=== PATIENT | female | born 1965 | race Caucasian/White ===

== ENCOUNTER 2020-12-18 15:02 | Outpatient (REF) | payer OTHER, SELFPAY ==
--- NOTE | ~2020-12-18 | MM_ITS ---
EXAMINATION: MM SCREENING DIGITAL BREAST TOMOSYNTHESIS, BILATERAL CLINICAL INFORMATION: Screening. Asymptomatic. The lifetime risk of breast cancer based on the Tyrer-Cuzick Model is 19%. COMPARISON: Mammography: 11/07/2019, 09/10/2018, 08/21/2016 TECHNIQUE: Digital breast tomosynthesis is performed in both the craniocaudal and mediolateral oblique views along with computer-aided detection (CAD). Synthesized 2D images are generated from the tomosynthesis. FINDINGS: The breasts are heterogeneously dense, which may obscure small masses (ACR BI-RADS breast composition Category c). Parenchymal pattern is similar to prior studies. There is no developing density or interval mass or architectural abnormality. Again, there is biopsy clip marker mid upper left breast and posterior upper right breast. There are diffuse bilateral punctate calcifications, more numerous on right similar to previous study. The axilla and skin contours are unremarkable. No significant changes. MM/MM tomosynthesis screening BI IMPRESSION: No significant changes from prior study. No mammographic evidence of malignancy. ASSESSMENT: BI-RADS 2: Benign RECOMMENDATION: Routine annual mammography screening. This patient's information was entered into a reminder system with a target due date for their next mammogram.
== END 2020-12-18 15:03 | disposition home or self-care (01) ==
LOC: HO.MAMMO 15:02
PROVIDERS: PCP Family Medicine; Visit Provider Family Medicine
DX: Z12.31 Encounter for screening mammogram for malignant neoplasm of breast (principal)
CPT/HCPCS: 77063; 77067

== ENCOUNTER 2021-12-19 15:54 | Outpatient (REF) | payer BC, SELFPAY ==
--- NOTE | ~2021-12-19 | MM_ITS ---
EXAMINATION: MM SCREENING DIGITAL BREAST TOMOSYNTHESIS, BILATERAL CLINICAL INFORMATION: Screening. Asymptomatic. Family history breast cancer, mother. The lifetime risk of breast cancer based on the Tyrer-Cuzick Model is 17%. COMPARISON: Mammography: 12/18/2020, 11/07/2019, 09/10/2018 TECHNIQUE: Digital breast tomosynthesis is performed in both the craniocaudal and mediolateral oblique views along with computer-aided detection (CAD). Synthesized 2D images are generated from the tomosynthesis. FINDINGS: The breasts are heterogeneously dense, which may obscure small masses (ACR BI-RADS breast composition Category c). Parenchymal pattern is similar to prior studies and there is no architectural abnormality, developing density, or interval mass. Biopsy clip marker again noted mid 1:00 left breast, and 2 biopsy clip markers right breast posterior central and posterior upper breast. There are diffuse bilateral similar appearing small round calcifications in each breast. The axilla and skin contours are unremarkable. No significant changes. MM/MM tomosynthesis screening BI IMPRESSION: No mammographic evidence of malignancy. ASSESSMENT: BI-RADS 2: Benign RECOMMENDATION: Routine annual mammography screening. This patient's information was entered into a reminder system with a target due date for their next mammogram.
== END 2021-12-19 15:55 | disposition home or self-care (01) ==
LOC: HO.MAMMO 15:54
PROVIDERS: PCP Family Medicine; Visit Provider Family Medicine
DX: Z12.31 Encounter for screening mammogram for malignant neoplasm of breast (principal)
CPT/HCPCS: 77063; 77067

== ENCOUNTER 2023-01-23 07:33 | Outpatient (REF) | payer BC, SELFPAY ==
--- NOTE | ~2023-01-23 | MM_ITS ---
EXAMINATION: MM SCREENING DIGITAL BREAST TOMOSYNTHESIS, BILATERAL CLINICAL INFORMATION: Screening. Asymptomatic. COMPARISON: Mammography: This study is compared with prior exams dating back to 2018. TECHNIQUE: Digital breast tomosynthesis is performed in both the craniocaudal and mediolateral oblique views along with computer-aided detection (CAD). Synthesized 2D images are generated from the tomosynthesis. FINDINGS: The breasts are heterogeneously dense, which may obscure small masses (ACR BI-RADS breast composition Category c). There are no significant masses, abnormal calcifications, or other abnormalities. There are tissue markers in the superior aspects of each breast from prior benign percutaneous biopsies. There are scattered, benign, unchanged calcifications of each breast. MM/MM tomosynthesis screening BI IMPRESSION: No mammographic evidence of malignancy. ASSESSMENT: BI-RADS BI-RADS 2 - Benign Findings RECOMMENDATION: Routine annual mammography screening. 1 year F/U This examination should not preclude the clinical evaluation of a suspicious palpable abnormality. This patient's information was entered into a reminder system with a target due date for their next mammogram.
== END 2023-01-23 07:34 | disposition home or self-care (01) ==
LOC: HO.MAMMO 07:33
PROVIDERS: PCP Family Medicine; Visit Provider Family Medicine
DX: Z12.31 Encounter for screening mammogram for malignant neoplasm of breast (principal)
CPT/HCPCS: 77063; 77067

== ENCOUNTER → 2023-01-23 07:45 | Outpatient (BNV) | payer BC, SELFPAY | PROVIDERS: PCP Family Medicine; Visit Provider Radiology Diagnostic Radiology | DX: Z12.31 Encounter for screening mammogram for malignant neoplasm of breast (principal) | CPT/HCPCS: 77063; 77067 ==

== ENCOUNTER 2024-01-19 13:07 | Outpatient (AMB) | payer BC, SELFPAY ==
--- NOTE | 2024-01-19 13:35 | MHC.PC.OV ---
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: No Patient : No Allergies No Known Allergies Allergy (Mild, Verified 01/19/24 13:36) NONE Medication List - Last Reconciled 01/19/24 by MADONNA Robles- aspirin (Adult Aspirin Regimen) 81 mg PO DAILY atenolol 50 mg PO DAILY betamethasone valerate 0.12% 1 appl topical BID levothyroxine 150 mcg PO DAILY multivitamin 1 tab PO DAILY rosuvastatin 20 mg PO BEDTIME Tobacco use date assessed: 01/19/24 Dental Screening Dental Screen Date: 01/19/24 Did you have a dental visit in the last 12 months?: Yes Did you have a dental problem in the last 6 months where you did not have access to dental care?: No Was dental information given to patient?: Patient has dentist HPI HPI Comments History of Present Illness Details 58 y/o f with hypothyroidism, hyperlipidemia, hypertension, scoliosis, mild mitral regurgitation, large patent PFO, atrial septal aneurysm, complex renal cyst R, vitamin-D deficiency, 5 mm hyperechoic avascular lesion adjacent to the gallbladder fossa noted on ultrasound of the abdomen 09/18/2023 (likely hemangioma), alcohol use disorder, menopause, scalp psoriasis, uterine fibroids, right ovarian cysts Status post tubal ligation 2001 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 LUCIE Stebbins of Care: Renal cleared Cardiology cleared Here today to [facility] care. Previous PCP records reviewed. She reports tolerance and compliance with her medications. She does not need refills. She denies any side effects related to the statin. She denies any cardiac complaints. She remains on aspirin for the patent PFO. In regards to follow up with specialist, she was cleared from renal follow up. She was seeing them for a right renal cyst. Repeat ultrasound showed stable benign cyst not requiring any follow up. She was also active with Cardiology in the past for patent PFO. She is cleared for routine follow up with them. She is maintained on aspirin daily. She denies any cardiac complaints. [facility] In regards to mammogram, she has a family history of breast cancer in her mother, she was fiber dense breasts, in the past she has had abnormal mammograms requiring MRI follow up. She is due for a mammogram this month. She has not had an MRI in several years. She would like this screening if at all possible. I will have the MRI from [facility] pulled to review. 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 She and her has been drinking several bottles of wine a few times per week. She has self reduced substantially. Her is also working on recovery in his supportive. She is now only drinking on special occasions. Feels she is able to limit her drinking. She has never been hospitalized or suffered withdrawals. She reports that since she stopped drinking she is sleeping much better and overall feels so much better. Does admit that her LFTs were bumped in the setting of alcohol use disorder and a statin. Labs 09/2023 show normal electrolytes, BUN 22, creatinine 0.7, EGFR greater than 59, hemoglobin A1c 5 point%, TSH 1.27 glucose 105, AST 38, ALT 55 Exam Awake alert oriented, no acute distress Scleras nonicter bilat MMM thyroid nontender 2/6 systolic murmur, regular rhythm Lung sounds clear to auscultation bilat Abdomen soft, no hepatomegaly, no tenderness No edema bilateral lower extremities Mood and affect appropriate Plan Continue all medications as currently prescribed. Return to the office in June for complete physical exam, with fasting labs to be done 1 week before. Return to the office sooner as needed. This note is constructed using voice recognition software. While every effort has been made to ensure accuracy in professor of business administration, still errors may have been included Sometimes, these errors may affect the content or meaning of the given sentence . Total time spent caring for the patient today was 45 minutes. This includes time spent before the visit reviewing the chart, time spent during the visit, and time spent after the visit on documentation PFSH Medical History (Updated 01/19/24 @ 15:03 by Le Newsome, [facility]-) Scoliosis High cholesterol Hypertension Surgical History (Updated 03/26/20 @ 14:37 by Liz Koroma, RMA, [facility]) History of colonoscopy History of wisdom tooth extraction History of tubal ligation Family History (Updated 01/19/24 @ 13:40 by Prasanth Byers MA) Father High cholesterol HTN (hypertension) CVD (cardiovascular disease) Mother Breast cancer Colon cancer Hyperlipidemia Paternal Grandfather Colon cancer Paternal Grandmother No problems noted. Social History (Updated 01/19/24 @ 13:41 by Prasanth Byers MA) Household Members: Spouse Housing: House Are you a primary reproductive healthcare assistant to a significant other at home: No Do you presently have visiting nurse or other home services: No 75 years or older and lives alone: No Alcohol intake: current Alcohol intake frequency: holidays/special occasions only Alcohol type: wine Patient Tobacco Use Status: Never used Tobacco e-Cigarette/Vaping Use: Never Used service: No Current occupational status: employed Current occupation: [employer] Cognitive needs: No Hearing needs: No Vision needs: Yes (wear glasses) Questionnaire PHQ-9 Over the last 2 weeks, how often have you been bothered by any of the following problems? 1. Little interest or pleasure in doing things: not at all 2. Feeling down, depressed, or hopeless: not at all 3. Trouble falling or staying asleep, or sleeping too much: not at all 4. Feeling tired or having little energy: not at all 5. Poor appetite or overeating: not at all 6. Feeling bad about yourself - or that you are a failure or have let yourself or your family down: not at all 7. Trouble concentrating on things, such as reading the newspaper or watching television: not at all 8. Moving or speaking so slowly that other people could have noticed. Or the opposite - being so fidgety or restless that you have been moving around a lot more than usual: not at all 9. Thoughts that you would be better off or of hurting yourself in some way: not at all Total score: 0 Depression Screening Interpretation: Negative Depression Screening Done: Yes 83801 - PHQ-9 Billing: Yes Source: Developed by Drs. Hoang Brunson, Nita De La Cruz, Cecil Yuan and colleagues, with an educational elaine from [employer]. Thrive Questionnaire Date Thrive assessed: 01/19/24 I am a: Patient What is your living situation today?: I have a steady place to live Within the past 12 months, did the food you bought not last and you didn't have the money to get more?: Never true Do you have trouble paying for medicines?: No Do you have trouble getting transportation to medical appointments?: No Do you have trouble paying your heating and electricity bill?: No Do you have trouble taking care of your child, family member or friend?: No Do you have trouble with day-to-day activities such as bathing, preparing meals, shopping, managing finances, etc.?: No Are you currently unemployed and looking for a job?: No Are you interested in more education?: No Please select the resources that you would like help with: None THRIVE Score: 0 AUDIT C Alcohol Use Questionnaire (AUDIT-C) 1. How often do you have a drink containing alcohol?: 2-4 times a month 2. How many drinks containing alcohol do you have on a typical day when you are drinking?: 3 or 4 3. How often do you have six or more drinks on one occasion?: Less than monthly Total Score: 4 Score Reviewed/Action Taken: Yes ELISSA-7 AMB Questionnaire ELISSA-7 Date ELISSA - 7 assessed: 01/19/24 Feeling nervous, anxious, or on edge: 0 = Not at all Not being able to stop or control worryin = Not at all Worrying too much about different things: 0 = Not at all Trouble relaxin = Not at all Being so restless that it is hard to sit still: 0 = Not at all Becoming easily annoyed or irritable: 0 = Not at all Feeling afraid as if something awful might happen: 0 = Not at all Total ELISSA-7 score (0-4 normal; 5-9 mild; 10-14 moderate; 15-21 severe): 0 Source: Developed by Nita Hitchcock.W. Jono, Cecil Yuan and colleagues, with an educational elaine from [employer]. ELISSA-7 Assessment Billing ELISSA-7 Assessment Tool: ELISSA-7 Assessment 60419 Physical exam (Primary Care) Vital Signs: Last Vital Signs Pulse 53 01/19/24 13:41 Resp 14 01/19/24 13:41 BP 120/70 01/19/24 13:41 Pulse Ox 94 01/19/24 13:41 Oxygen Delivery Method Room Air 01/19/24 13:41 BMI result Body Mass Index 27.8 Tobacco/Smoking Status: Tobacco use Status Tobacco use date assessed 01/19/24 01/19/24 13:44 Patient Tobacco Use Status Never used Tobacco 01/19/24 13:44 e-Cigarette/Vaping Use Never Used 01/19/24 13:44 PHQ-9: PHQ-9 Score PHQ-9: Total score 0 01/19/24 13:51 Depression Screening Interpretation: Negative Thrive Assessment: Date of Thrive Assessment Date Thrive assessed 01/19/24 01/19/24 13:44 Assessment and Plan Assessment & Plan (1) Hypothyroid: Code(s): E03.9 - Hypothyroidism, unspecified Qualifiers: Hypothyroidism type: acquired Qualified Code(s): E03.9 - Hypothyroidism, unspecified (2) Hyperlipidemia: Code(s): E78.5 - Hyperlipidemia, unspecified Qualifiers: Hyperlipidemia type: mixed hyperlipidemia Qualified Code(s): E78.2 - Mixed hyperlipidemia (3) PFO with atrial septal aneurysm: Code(s): Q21.12 - Patent foramen ovale; I25.3 - Aneurysm of heart (4) Complex renal cyst: Comment: on the R with MRI and US imaging, last done Summer 2023, cleared from future renal f/u, cyst is benign Code(s): N28.1 - Cyst of kidney, acquired (5) Vitamin D deficiency: Code(s): E55.9 - Vitamin D deficiency, unspecified (6) Liver lesion: Comment: 5 mm hyperechoic avascular lesion adjacent to the gallbladder fossa noted on ultrasound of the abdomen 09/18/2023 (likely hemangioma), Code(s): K76.9 - Liver disease, unspecified (7) Alcohol use disorder, mild, in early remission: Code(s): F10.11 - Alcohol abuse, in remission (8) Scalp psoriasis: Code(s): L40.9 - Psoriasis, unspecified (9) Hypertension: Code(s): I10 - Essential (primary) hypertension Qualifiers: Hypertension type: primary hypertension Qualified Code(s): I10 - Essential (primary) hypertension Orders: Orders Comprehensive [place]. Panel Fast 05/11/24 E03.9 - Hypothyroidism, unspecified, E78.5 - Hyperlipidemia, unspecified Hemoglobin A1c 05/11/24 E03. - Hypothyroidism, unspecified, E78.5 - Hyperlipidemia, unspecified Lipid Panel 05/11/24 E03.9 - Hypothyroidism, unspecified, E78.5 - Hyperlipidemia, unspecified IRON PROFILE 05/11/24 E0. - Hypothyroidism, unspecified, E78.5 - Hyperlipidemia, unspecified Complete Blood Count no Diff 05/11/24 E0. - Hypothyroidism, unspecified, E78.5 - Hyperlipidemia, unspecified Microalbumin, Random (w Creat) 05/11/24 E03. - Hypothyroidism, unspecified, E78.5 - Hyperlipidemia, unspecified TSH reflex Free T4 05/11/24 E03. - Hypothyroidism, unspecified, E78.5 - Hyperlipidemia, unspecified Vitamin B12 and Folate 05/11/24 E03. - Hypothyroidism, unspecified, E78.5 - Hyperlipidemia, unspecified Vitamin D 25-OH Total 05/11/24 E03. - Hypothyroidism, unspecified, E78.5 - Hyperlipidemia, unspecified Coding Level of Care Code New Pt Level 4 (19918) Complex EM visit Add On G2211 Diagnoses Acquired hypothyroidism E03.9 Hypothyroidism type: acquired Mixed hyperlipidemia E78.2 Hyperlipidemia type: mixed hyperlipidemia PFO with atrial septal aneurysm Q21.12; I25.3 Complex renal cyst N28.1 Vitamin D deficiency E55.9 Liver lesion K76.9 Alcohol use disorder, mild, in early remission F10.11 Scalp psoriasis L40.9 Primary hypertension I10 Hypertension type: primary hypertension Additional Codes ELISSA-7 Assessment Billing - ELISSA-7 Assessment Tool: ELISSA-7 Assessment [id number] ([id number])
[2024-01-19 13:41] VITALS: BP 120/70; PULSE 53; RESP 14; O2SAT 94; BMI 27.8
== END 2024-01-19 14:20 | disposition home or self-care (01) ==
PROVIDERS: PCP Family Medicine; Visit Provider Nurse Practitioner Family
DX: E03.9 Hypothyroidism, unspecified (principal); E78.2 Mixed hyperlipidemia; Q21.12 Patent foramen ovale; I25.3 Aneurysm of heart; N28.1 Cyst of kidney, acquired; E55.9 Vitamin D deficiency, unspecified; K76.9 Liver disease, unspecified; F10.11 Alcohol abuse, in remission; L40.9 Psoriasis, unspecified; I10 Essential (primary) hypertension
CPT/HCPCS: 99204

== ENCOUNTER 2024-02-01 07:55 | Outpatient (REF) | payer BC, SELFPAY ==
--- NOTE | ~2024-02-01 | MM_ITS ---
EXAMINATION: MM SCREENING DIGITAL BREAST TOMOSYNTHESIS, BILATERAL CLINICAL INFORMATION: Screening. Asymptomatic. COMPARISON: Mammography: Comparison is made with available priors TECHNIQUE: Digital breast mammography with tomosynthesis is performed in both the craniocaudal and mediolateral oblique views along with computer-aided detection (CAD). FINDINGS: The breasts are heterogeneously dense, which may obscure small masses (ACR BI-RADS breast composition Category c). Marker clips from previous needle core biopsies. There are no significant masses, abnormal calcifications, or other abnormalities. MM/MM tomosynthesis screening BI IMPRESSION: No mammographic evidence of malignancy. ASSESSMENT: BI-RADS BI-RADS 2 - Benign Findings RECOMMENDATION: Routine annual mammography screening. 1 year F/U This examination should not preclude the clinical evaluation of a suspicious palpable abnormality. This patient's information was entered into a reminder system with a target due date for their next mammogram. Electronically signed by: Soila Montoya DO 02/01/2024 05:52 PM EDT
== END 2024-02-01 07:56 | disposition home or self-care (01) ==
LOC: HO.MAMMO 07:55
PROVIDERS: PCP Nurse Practitioner Family; Visit Provider Nurse Practitioner Family
DX: Z12.31 Encounter for screening mammogram for malignant neoplasm of breast (principal)
CPT/HCPCS: 77063; 77067

== ENCOUNTER → 2024-02-01 08:00 | Outpatient (BNV) | payer BC, SELFPAY | PROVIDERS: PCP Nurse Practitioner Family; Visit Provider Internal Medicine | DX: Z12.31 Encounter for screening mammogram for malignant neoplasm of breast (principal) | CPT/HCPCS: 77063; 77067 ==

== ENCOUNTER → 2024-04-25 08:38 | Outpatient (BNV) | payer BC, SELFPAY | PROVIDERS: PCP Nurse Practitioner Family; Visit Provider Internal Medicine | DX: R92.323 Mammographic fibroglandular density, bilateral breasts (principal); Z80.3 Family history of malignant neoplasm of breast | CPT/HCPCS: 77049 ==

== ENCOUNTER 2024-04-25 08:39 | Outpatient (REF) | payer BC, SELFPAY ==
[2024-04-25] MEDS: gadobutroL 7.5 ML VIAL IVPUSH (09:55)
== END 2024-04-25 08:40 | disposition home or self-care (01) ==
LOC: HO.MRI 08:39
PROVIDERS: PCP Nurse Practitioner Family; Visit Provider Nurse Practitioner Family
DX: Z12.39 Encounter for other screening for malignant neoplasm of breast (principal); R92.30 Dense breasts, unspecified
CPT/HCPCS: 77049; A9585

== ENCOUNTER 2024-07-12 07:30 | Outpatient (REF) | payer BC, SELFPAY ==
[2024-07-12 08:26] LABS: Hemoglobin 13.8 g/dl (12.0-16.0); Mean Corpuscular HGB Conc 32.9 g/dl (31.0-35.0); Mean Corpuscular Hemoglobin 31.2 pg (27.0-33.0); Mean Corpuscular Volume 94.8 fL (80.0-98.0); Mean Platelet Volume 9.5 fL (9.4-12.3); Platelet Count 231 X10*3/uL (160-400); Red Blood Count 4.43 X10*6/uL (4.20-5.50); Red Cell Distribution Width 13.3 % (11.0-16.0); White Blood Count 6.6 X10*3/uL (4.8-10.8)
[2024-07-12 08:33] LABS: Estimated Average Glucose 108 mg/dL; Hemoglobin A1C 125.9231 umol/L; Hemoglobin A1c % 5.4 % (<6.0); Total Hemoglobin (HGBA1C) 3493.7263 umol/L
[2024-07-12 09:03] LABS: Alanine Aminotransferase 65 U/L (0-31); Albumin Level 4.5 g/dL (3.5-5.0); Alkaline Phosphatase 102 U/L (39-117); Anion Gap 13 (12-20); Aspartate Amino Transferase 34 U/L (5-31); Blood Urea Nitrogen 15 mg/dL (9-16); Calcium 9.8 mg/dL (8.4-10.2); Carbon Dioxide 25 mmol/L (22-29); Chloride 107 mmol/L (96-108); Cholesterol 248 mg/dL (<200); Estimated Glomerular Filt Rate > 60; Glucose Fasting 102 mg/dL (60-99); HDL Cholesterol 67 mg/dL (>40); Iron 104 mcg/dL (30-160); LDL Cholesterol Calculated 143 mg/dL (<100); Percent Iron Saturation 39 % (15-50); Potassium 4.1 mmol/L (3.3-5.1); Sodium 141 mmol/L (135-145); Total Iron Binding Capacity 269 mcg/dL (228-428); Total Protein 7.7 g/dL (6.5-8.0); Triglycerides 192 mg/dL (<150); Unsaturated Iron Binding 165 ug/dL
[2024-07-12 09:20] LABS: TSH reflex Free T4 2.74 uIU/mL (0.32-4.0)
[2024-07-12 09:29] LABS: Folate 15.1 ng/mL (> or = 4.0); Vitamin B12 687 pg/mL (200-900)
[2024-07-12 09:42] LABS: Creatinine Urine 114.33 mg/dL; Microalbum/Creatinine Ratio Ur 17.4 ug/mg cr (<30)
== END 2024-07-12 07:31 | disposition home or self-care (01) ==
LOC: HO.LAB 07:30
PROVIDERS: PCP Nurse Practitioner Family; Visit Provider Nurse Practitioner Family
DX: E03.9 Hypothyroidism, unspecified (principal); E78.5 Hyperlipidemia, unspecified; Z13.228 Encounter for screening for other metabolic disorders; Z13.1 Encounter for screening for diabetes mellitus; Z13.0 Encounter for screening for diseases of the blood and blood-forming organs and certain disorders involving the immune mechanism
CPT/HCPCS: 36415; 80053; 80061; 82043; 82306; 82570; 82607; 82746; 83036; 83540; 84443; 85027

== ENCOUNTER 2024-07-15 14:20 | Outpatient (AMB) | payer BC, SELFPAY ==
--- NOTE | 2024-07-15 14:21 | A.OFFPC_ITS ---
Vital Signs 07/15/24 14:24 Height 5 ft 1 in Weight 154 lb 4 oz BMI 29.1 BP 118/67 Blood Pressure Location Rt brachial Position Sitting Respiration 12 Pulse 61 Pulse Source Pulse Oximeter Temp 97.2 F Temp Source Oral Pulse Oximetry (%) 96 Oxygen Delivery Method Room Air Intake Visit Reasons: PE Intake Note: annual physical [employer] Manager Required: No Allergies No Known Allergies Allergy (Mild, Verified 07/15/24 14:47) NONE Medication List - Last Reconciled 07/15/24 by MADONNA Robles- aspirin (Adult Aspirin Regimen) 81 mg PO DAILY atenolol 50 mg PO DAILY betamethasone valerate 0.12% 1 appl topical BID levothyroxine 150 mcg PO DAILY multivitamin 1 tab PO DAILY rosuvastatin 20 mg PO BEDTIME Tobacco use date assessed: 07/15/24 Dental Screening Dental Screen Date: 07/15/24 Did you have a dental visit in the last 12 months?: Yes Did you have a dental problem in the last 6 months where you did not have access to dental care?: No Was dental information given to patient?: Patient has dentist HPI HPI Comments History of Present Illness Details 59 y/o f with hypothyroidism, hyperlipid emia, hypertension, scoliosis, mild mitral regurgitation, large patent PFO, atrial septal aneurysm, complex renal cyst R, vitamin-D deficiency, 5 mm hyperechoic avascular lesion adjacent to the gallbladder fossa noted on ultrasound of the abdomen 09/18/2023 (likely hemangioma), alcohol use disorder, menopause, scalp psoriasis, uterine fibroids, right ovarian cysts Status post tubal ligation 2001 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 MRI ordered 04/25/24 Breast MRI normal, Recommend yearly MRI screening surveillance. Recommend yearly screening mammogram. [place] of Care: Renal Cardiology Optho due, last one several years ago. Wears reading glasses. 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 - She has an ongoing medical history of hypothyroidism, managed with levoth yroxine hyperlipidemia treated with rosuvastatin. essential hypertension for which she is on atenolol and takes a daily low dose aspirin due to the presence of a patent foramen ovale; she is not under active follow-up with cardiology. - Reports challenges with controlling al cohol consumption, describing episodic excessive intake, especially relating to social and stress contexts. - Evaluates her current lifestyle impact on her lipid profile and her goal to reduce alcohol consumption. Social History - and reports living arrangement s include spouse and a [id number] with dementia, leading to family dynamic challenges. 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 - Reports alcohol intake with episodes l eading to potential health issues, acknowledges historical patterns motivated by stressors. - Exercises intermittently with history of active lifestyle, current decline attributed to lifestyle changes; expresses intentions of lifestyle adjustments and concerns about dietary management. - Measures taken toward smoking cessatio n and stress management seeking therapeutic intervention. Review of Systems - Cardiovascular: Denies chest pain - Pulmonary: Reports shortness of breath primarily upon exertion, worse than what is expected, but w/o chest pain. - Gastrointestinal: Reports manageable i rregular digestive symptoms post fish oil; some abd bloat more chronic - Musculoskeletal: Denies specific joint pain; routine activity prompts exertion concerns - Dermatologic: No recent skin changes b ut potential growth concerns noted on back - Neurologic: Denies dizziness at rest o r post exertional, reports no significant cognitive changes - Psychiatric: Reports continuous effort to reduce stress and manage substance concerns, improving emotional resilience Physical Exam General: Well developed, well nourished, in no acute distress. Appears stated age. Head: Normocephalic, atraumatic. Eyes: Pupils are equal, round and reactive to light and accommodation. Conjunctivae are clear. Vision grossly normal. Ears: TM intact and clear on L, unable to see TM on R d/t cerumen Pt states she can tx @ home Nose: Patent, without discharge. Neck: Supple, no adenopathy or thyromegaly. Breast: Edu on SBE. Mammogram and MRI are up to date Lungs: Clear to auscultation bilaterally. No rales, rhonchi or wheeze noted. Good air flow in all hamm. Heart: Regular rate and rhythm. 2/6 systolic murmur,no click, rubs or gallops are noted. . Abdomen: Bowel sounds present in all quadrants. The abdomen is soft, nontender, with no masses or organomegaly noted. No hernias are noted. : Deferred. Reviewed recommendations for routine MERIT SYSTEM DIRECTOR. Pulses: Peripheral pulses are equal and palpable bilaterally. Extremities: No clubbing, cyanosis nor edema is noted. Neurologic: Gait and station normal. Cranial Nerves 2-12 intact. Motor strength grossly symmetrical and intact. No sensory loss. Balance normal. Skin: No rashes, ulcers, or lesions noted. Turgor is good. Skin color is good. Hair and nails are without abnormalities. scattered moles on trunk and ext Psych: Normal eye contact, affect and mood appropriate, and normal interactions. Patient is alert and appropriate to context. Results Labs 07/12/24 normal CBC, normal electrolytes normal renal function fasting glucose 102 A1c 5.4% normal iron profile elevated LFTs though stable AST 34 ALT 65 elevated but improved total cholesterol 248, LDL 143 HDL 67 triglycerides 192 normal B12 vitamin-D folate TSH and urine microalbumin - Previous Imaging: - September 2023 Ultrasoun d: Presence of gallbladder hemangioma, no significant progress - Previous Procedures: - October 2023 CT Sc an: No significant abdominal abnormalities reported Discussion Notes We discussed the patient's concern with alcohol use disorder and concurrent health management. I proposed a referral to an addiction medicine specialist at the [facility] for targeted counseling/treatment. We considered pharmacological management options within the patient's cardiovascular health measures, reinforced by current cholesterol data. Furthermore, an updated stress test was deemed appropriate given exertional breathlessness, prioritizing cardiovascular exclusion before lung assessment. Another aspect of the visit included health maintenance thoroughness, covering flu immunization plans and aligning draft dates with ongoing mammography and osteoporotic screenings. Our discussion also canvassed anticipatory guidance on lifestyle choices and their correlation with health measures, specifically regarding alcohol influence on glucose and lipid parameters. Assessment and Plan 1. Hypothyroidism: Continue levothyroxin e. Current management effective with thorough follow-up. 2. Hyperlipidemia: Continue rosuvastatin . Reassess cholesterol levels; focus on lifestyle improvements. 3. Hypertension: Maintain atenolol thera py. Monitor blood pressure routine. 4. Patent Foramen Ovale: Advise aspirin regimen continuation. Cardiovascular signs to direct future interventions. 5. Alcohol Use Disorder: Initialize refe rral to addiction services. Explore moderation and lifestyle balance strategies. 6. Exertional Dyspnea: Arrange nuclear s tress test to evaluate symptomatic basis. Patient Instructions - Continue levothyroxine and rosuvastati n as prescribed. - Schedule and prepare for the nuclear s tress test at your earliest convenience after scheduling. - Expect a referral call to set appointm ents with addiction medicine services. Consider a walk-in should timing be of preference. - Maintain current hypertension regimen with atenolol and baby aspirin notwithstanding any alterations. - Be observant of any alternative sympto ms of concern, specifically escalating breathlessness, and reach out promptly. - Increase physical activities gradually accordingly and heighten focus on dietary?even dietary goals? matching cholesterol regulation objectives. - Plan and update scheduling for mammogr am and consider the bone density study as discussed. - RTO 6 mo routine fu, labs 1 week befor e sooner as needed Consent Patient was informed and verbally consented to the use of an ambient scribe for clinic note documentation during this visit. [facility] Medical History (Updated 07/15/24 @ 15:42 by Le Newsome, [facility]) High cholesterol Hypertension Scoliosis Surgical History (Updated 03/26/20 @ 14:37 by Liz Koroma A, [facility]) History of colonoscopy History of tubal ligation History of wisdom tooth extraction Family History (Updated 01/19/24 @ 13:40 by Prasanth Byers MA) Father High cholesterol HTN (hypertension) CVD (cardiovascular disease) Mother Breast cancer Colon cancer Hyperlipidemia Paternal Grandfather Colon cancer Paternal Grandmother No problems noted. Social History (Updated 01/19/24 @ 13:41 by Prasanth Byers MA) Household Members: Spouse Housing: House Are you a primary healthcare management to a significant other at home: No Do you presently have visiting nurse or other home services: No 75 years or older and lives alone: No Alcohol intake: current Alcohol intake frequency: holidays/special occasions only Alcohol type: wine Patient Tobacco Use Status: Never used Tobacco e-Cigarette/Vaping Use: Never Used service: No Current occupational status: employed Current occupation: [employer] Cognitive needs: No Hearing needs: No Vision needs: Yes (wear glasses) Questionnaire PHQ-9 Over the last 2 weeks, how often have you been bothered by any of the following problems? 1. Little interest or pleasure in doing things: not at all 2. Feeling down, depressed, or hopeless: not at all 3. Trouble falling or staying asleep, or sleeping too much: not at all 4. Feeling tired or having little energy: not at all 5. Poor appetite or overeating: not at all 6. Feeling bad about yourself - or that you are a failure or have let yourself or your family down: not at all 7. Trouble concentrating on things, such as reading the newspaper or watching television: not at all 8. Moving or speaking so slowly that other people could have noticed. Or the opposite - being so fidgety or restless that you have been moving around a lot more than usual: not at all 9. Thoughts that you would be better off or of hurting yourself in some way: not at all Total score: 0 Depression Screening Interpretation: Negative Depression Screening Done: Yes 33666 - PHQ-9 Billing: Yes Source: Developed by Drs. Hoang Brunson, Nita De La Cruz, Cecil Yuan and colleagues, with an educational elaine from [employer]. Thrive Questionnaire Date Thrive assessed: 07/15/24 I am a: Patient What is your living situation today?: I have a steady place to live Within the past 12 months, did the food you bought not last and you didn't have the money to get more?: Never true Within the past 12 months, did you worry whether your food would run out before you got money to buy more?: Never true Do you have trouble paying for medicines?: No Do you have trouble getting transportation to medical appointments?: No Do you have trouble paying your heating and electricity bill?: No Do you have trouble taking care of your child, family member or friend?: No Do you have trouble with day-to-day activities such as bathing, preparing meals, shopping, managing finances, etc.?: No Are you currently unemployed and looking for a job?: No Are you interested in more education?: No Please select the resources that you would like help with: None Currently or been in a relationship where the following occur: No concerns reported THRIVE Score: 0 AUDIT C Alcohol Use Questionnaire (AUDIT-C) 1. How often do you have a drink containing alcohol?: 2-3 times a week 2. How many drinks containing alcohol do you have on a typical day when you are drinking?: 1 or 2 3. How often do you have six or more drinks on one occasion?: Never Total Score: 3 Score Reviewed/Action Taken: Yes ELISSA-7 AMB Questionnaire ELISSA-7 Date ELISSA - 7 assessed: 07/15/24 Feeling nervous, anxious, or on edge: 0 = Not at all Not being able to stop or control worryin = Not at all Worrying too much about different things: 0 = Not at all Trouble relaxin = Not at all Being so restless that it is hard to sit still: 0 = Not at all Becoming easily annoyed or irritable: 0 = Not at all Feeling afraid as if something awful might happen: 0 = Not at all Total ELISSA-7 score (0-4 normal; 5-9 mild; 10-14 moderate; 15-21 severe): 0 Source: Developed by Drs. Hoang Brunson, Nita De La Cruz, Cecil Yuan and colleagues, with an educational elaine from [employer]. ELISSA-7 Assessment Billing ELISSA-7 Assessment Tool: ELISSA-7 Assessment 95948 Physical exam (Primary Care) Vital Signs: Last Vital Signs Temp 97.2 F 07/15/24 14:24 Pulse 61 07/15/24 14:24 Resp 12 07/15/24 14:24 BP 118/67 07/15/24 14:24 Pulse Ox 96 07/15/24 14:24 Oxygen Delivery Method Room Air 07/15/24 14:24 BMI result Body Mass Index 29.1 Tobacco/Smoking Status: Tobacco use Status Tobacco use date assessed 07/15/24 07/15/24 14:26 Patient Tobacco Use Status Never used Tobacco 07/15/24 14:26 e-Cigarette/Vaping Use Never Used 07/15/24 14:26 PHQ-9: PHQ-9 Score PHQ-9: Total score 0 07/15/24 15:33 Depression Screening Interpretation: Negative Thrive Assessment: Date of Thrive Assessment Date Thrive assessed 07/15/24 07/15/24 14:26 Currently or been in a relationship where the following occur: No concerns reported Office Procedures Flu Questionnaire Does the patient have a severe egg allergy?: No Does the patient have severe life threatening allergies?: No Does the patient have a fever or illness today?: No Has the patient ever had Guillain-Oak Syndrome?: No Has the patient ever had any past reaction to a flu shot?: No Immunizations Fluarix Triv [id number] (PF) 45 mcg (15 mcg x 3)/0.5 mL IM syringe Performing Provider: IVONNE Robles Performing Location: [facility] [place] [facility] Medicine Administered by: Stephanie Wu RN on 07/15/24 15:43 Dose Route Admin Location Dispensed Lot Number Expiration Date [facility] Text[employer] 0.5 mL IM Right Deltoid 0.5 mL [id number] 11/07/24 [id number] [employer] VIS Given Date VIS Provided VIS Publication Date 07/15/24 Single Vaccine 20 Eligibility Eligibility Date Funding Source Not [facility] Eligible 07/15/24 Private Coding Level of Care Code Est Pt Prev Care 40-64y(68697) Diagnoses Encounter for general adult medical examination without abnormal findings Z00.00 Alcohol use disorder F10.90 PFO with atrial septal aneurysm Q21.12; I25.3 SPENCER (dyspnea on exertion) R06.09 Screening for skin cancer Z12.83 Complex renal cyst N28.1 Primary hypertension I10 Hypertension type: primary hypertension Mixed hyperlipidemia E78.2 Hyperlipidemia type: mixed hyperlipidemia Acquired hypothyroidism E03.9 Hypothyroidism type: acquired Scalp psoriasis L40.9 Vitamin D deficiency E55.9 Influenza vaccination administered at current visit Z23 Additional Codes ELISSA-7 Assessment Billing - ELISSA-7 Assessment Tool: ELISSA-7 Assessment [id number] ([id number]) PHQ-9 - 67407 - PHQ-9 Billing: Yes ([id number]) Assessment & Plan Assessment & Plan (1) Encounter for general adult medical examination without abnormal findings: Code(s): Z00.00 - Encounter for general adult medical examination without abnormal findings (2) Alcohol use disorder: Code(s): F10.90 - Alcohol use, unspecified, uncomplicated Category: Medical (3) PFO with atrial septal aneurysm: Code(s): Q21.12 - Patent foramen ovale; I25.3 - Aneurysm of heart Category: Medical (4) SPENCER (dyspnea on exertion): Code(s): R06.09 - Other forms of dyspnea Category: Medical (5) Screening for skin cancer: Code(s): Z12.83 - Encounter for screening for malignant neoplasm of skin Category: Medical (6) Complex renal cyst: Comment: on the R with MRI and US imaging, last done Summer 2023, cleared from future renal f/u, cyst is benign Code(s): N28.1 - Cyst of kidney, acquired Category: Medical (7) Hypertension: Code(s): I10 - Essential (primary) hypertension Category: Medical Qualifiers: Hypertension type: primary hypertension Qualified Code(s): I10 - Essential (primary) hypertension (8) Hyperlipidemia: Code(s): E78.5 - Hyperlipidemia, unspecified Category: Medical Qualifiers: Hyperlipidemia type: mixed hyperlipidemia Qualified Code(s): E78.2 - Mixed hyperlipidemia (9) Hypothyroid: Code(s): E03.9 - Hypothyroidism, unspecified Category: Medical Qualifiers: Hypothyroidism type: acquired Qualified Code(s): E03.9 - Hypothyroi dism, unspecified (10) Scalp psoriasis: Code(s): L40.9 - Psoriasis, unspecified Category: Medical (11) Vitamin D deficiency: Code(s): E55.9 - Vitamin D deficiency, unspecified Category: Medical (12) Influenza vaccination administered at current visit: Code(s): Z23 - Encounter for immunization Plan . Orders: Orders CA stress test Today I25.3 - Aneurysm of heart, Q21.12 - Patent foramen ovale, R06.09 - Other forms of dyspnea Influenza [id number] Immunization Today Z23 - Encounter for immunization Comprehensive Spencer. Panel Fast 6 Months E03.9 - Hypothyroidism, unspecified, E78.2 - Mixed hyperlipidemia, I10 - Essential (primary) hypertension Hemoglobin A1c 6 Months E03.9 - Hypothyroidism, unspecified, E78.2 - Mixed hyperlipidemia, I10 - Essential (primary) hypertension Lipid Panel 6 Months E03.9 - Hypothyroidism, unspecified, E78.2 - Mixed hyperlipidemia, I10 - Essential (primary) hypertension TSH reflex Free T4 6 Months E03.9 - Hypothyroidism, unspecified, E78.2 - Mixed hyperlipidemia, I10 - Essential (primary) hypertension XR DEXA axial skeleton Today Z13.820 - Encounter for screening for osteoporosis NM cardiolite stress test Today I25.3 - Aneurysm of heart, Q21.12 - Patent foramen ovale, R06.09 - Other forms of dyspnea Vitamin D 25-OH Total 6 Months E03.9 - Hypothyroidism, unspecified, E78.2 - Mixed hyperlipidemia, I10 - Essential (primary) hypertension Referrals Addiction Medicine Referral F10.90 - Alcohol use, unspecified, uncomplicated Dermatology Referral Z12.83 - Encounter for screening for malignant neoplasm o f skin Patient Instructions: Health screenings for women You should visit your health care provider from time to time, even if you are healthy. The purpose of these visits is to: Screen for medical issues Assess your risk for future medical problems Encourage a healthy lifestyle Update vaccinations and other preventive care services Help you get to know your provider in case of an illness Information Even if you feel fine, you should still see your provider for regular checkups. These visits can help you avoid problems in the future. For example, the only way to find out if you have high blood pressure is to have it checked regularly. High blood sugar and high cholesterol levels also may not have any symptoms in the early stages. A simple blood test can check for these conditions. There are specific times when you should see your provider or receive specific health screenings. The [place] Preventive Services Task Force publishes a list of recommended screenings. Below are screening guidelines for women ages 18 to 39. BLOOD PRESSURE SCREENING Your blood pressure should be checked at least once every 3 to 5 years if: Your blood pressure is in the normal range (top number less than 120 mm Hg and bottom number less than 80 mm Hg) You don't have risk factors for high blood pressure Ask your provider if you need your blood pressure checked more often if: The top number is 120 to 129 mm Hg or the bottom number is 70 to 79 mm Hg You have diabetes, heart disease, kidney problems, are overweight, or have certain other health conditions You have a first-degree relative with high blood pressure You are Black You had high blood pressure during a If the top number is 130 mm Hg or greater or the bottom number is 80 mm Hg or greater, this is considered stage 1 hypertension. Schedule an appointment with your provider to learn how you can reduce your blood pressure. Watch for blood pressure screenings in your area. Ask your provider if you can stop in to have your blood pressure checked. BREAST CANCER SCREENING Experts do not agree about the benefits of breast self-exams in finding breast cancer or saving lives. Talk to your provider about what is best for you. A screening mammogram is not recommended for most women under age 40. Your provider may discuss and recommend mammograms, MRI scans, or ultrasounds if you have an increased risk for breast cancer, such as: A mother or sister who had breast cancer at a young age (most often starting screening earlier than the age the close relative was diagnosed) You carry a high-risk genetic marker CERVICAL CANCER SCREENING Cervical cancer screening should start at age 21 years unless your provider advises otherwise. After the first test: Women ages 21 through 29 should have a Pap test every 3 years. Exoprts do not agree on whether HPV testing is recommended for this age group. Women ages 30 through 65 should be screened with either a Pap test every 3 years or the HPV test every 5 years or both tests every 5 years (called cotesting ). Women who have been treated for precancer (cervical dysplasia) should continue to have Pap tests for 20 years after treatment or until age 65, whichever is longer. If you have had your uterus and cervix removed (total hysterectomy), and you have not been diagnosed with cervical cancer or precancer (high grade cervical neoplasia), you do not need cervical cancer screening. CHOLESTEROL SCREENING Cholesterol screening should begin at: Age 45 for women with no known risk factors for coronary heart disease Age 20 for women with known risk factors for coronary heart disease Repeat cholesterol screening should take place: Every 5 years for women with normal cholesterol levels More often if changes occur in lifestyle (including weight gain and diet) More often if you have diabetes, heart disease, kidney problems, or certain other conditions DIABETES SCREENING You should be screened for diabetes starting at age 35 and then repeated every 3 years if you have no risk factors for diabetes. Screening may need to start earlier and be repeated more often if you have other risk factors for diabetes, such as: You have a first degree relative with diabetes. You are overweight or have obesity. You have high blood pressure, prediabetes, or a history of heart disease. Screening for diabetes should be done if you are planning to become and you are overweight and have other risk factors such as high blood pressure. DENTAL EXAM Go to the dentist once or twice every year for an exam and cleaning. Your dentist will evaluate if you need more frequent visits. EYE EXAM Have an eye exam every 5 to 10 years before age 40. If you have vision problems, have an eye exam every 2 years or more often if recommended by your provider. You should have an eye exam that includes an examination of your retina (back of your eye) at least every year if you have diabetes. IMMUNIZATIONS Commonly needed vaccines include: Flu shot: get one every year. COVID-19 vaccine: ask your provider what is best for you. Tetanus-diphtheria and acellular pertussis (Tdap) vaccine: have one at or after age 19 as one of your tetanus-diphtheria vaccines if you did not receive it as an adolescent. Tetanus-diphtheria: have a booster (or Tdap) every 10 years. Varicella vaccine: receive 2 doses if you never had chickenpox or the varicella vaccine. Hepatitis B vaccine: receive 2, 3, or 4 doses, depending on your exact circumstances. Measles, mumps, and rubella (MMR) vaccine: receive 1 to 2 doses if you are not already immune to MMR. Your provider can tell you if you are immune. Ask your provider about the human papillomavirus (HPV) vaccine if: You have not received the HPV vaccine in the past You have not completed the full vaccine series (you should catch up on this shot) Ask your provider if you should receive other immunizations if you have certain health problems that increase your risk for some diseases such as pneumonia. INFECTIOUS DISEASE SCREENING Women who are sexually active should be screened for chlamydia and gonorrhea up until age 25. Women 25 years and older should be screened for chlamydia and gonorrhea if at high risk. Screening for hepatitis C: All adults ages 18 to 79 should get a one-time test for hepatitis C. people should be screened at every . Screening for human immunodeficiency virus (HIV): All people ages 15 to 65 should get a one-time test for HIV. Depending on your lifestyle and medical history, you may also need to be screened for infections such as syphilis and HIV, as well as other infections. PHYSICAL EXAM All adults should visit their provider from time to time, even if they are healthy. The purpose of these visits is to: Screen for disease Assess your risk of future medical problems Encourage a healthy lifestyle Update your vaccinations and other preventive care services Maintain a relationship with a provider in case of an illness Your height, weight, and BMI should be checked at every exam. During your exam, your provider may ask you about: Depression and anxiety Diet and exercise Alcohol and tobacco use Safety issues, such as using seat belts, smoke detectors, and intimate partner violence Your medicines and risk for interactions SKIN SELF-EXAM Your provider may check your skin for signs of skin cancer, especially if you're at high risk, such as if you: Have had skin cancer before Have close relatives with skin cancer Have a weakened immune system OTHER SCREENING Talk with your provider about colon cancer screening if you have a strong family history of colon cancer or polyps, or if you have had inflammatory bowel disease or polyps yourself. Routine bone density screening of women under 40 is not recommended.
[2024-07-15 14:24] VITALS: BP 118/67; PULSE 61; RESP 12; TEMP 36.2; O2SAT 96; BMI 29.1
== END 2024-07-15 15:41 | disposition home or self-care (01) ==
PROVIDERS: PCP Nurse Practitioner Family; Visit Provider Nurse Practitioner Family
DX: Z00.00 Encounter for general adult medical examination without abnormal findings (principal); F10.90 Alcohol use, unspecified, uncomplicated; Q21.12 Patent foramen ovale; I25.3 Aneurysm of heart; R06.09 Other forms of dyspnea; Z12.83 Encounter for screening for malignant neoplasm of skin; N28.1 Cyst of kidney, acquired; I10 Essential (primary) hypertension; E78.2 Mixed hyperlipidemia; E03.9 Hypothyroidism, unspecified; L40.9 Psoriasis, unspecified; E55.9 Vitamin D deficiency, unspecified; Z23 Encounter for immunization

== ENCOUNTER → 2024-07-15 14:20 | Outpatient (BNVA) | payer BC, SELFPAY | PROVIDERS: PCP Nurse Practitioner Family; Visit Provider Nurse Practitioner Family | DX: Z00.00 Encounter for general adult medical examination without abnormal findings (principal); Z23 Encounter for immunization; F10.90 Alcohol use, unspecified, uncomplicated; R06.09 Other forms of dyspnea; N28.1 Cyst of kidney, acquired; I10 Essential (primary) hypertension; E78.2 Mixed hyperlipidemia; E03.9 Hypothyroidism, unspecified; L40.9 Psoriasis, unspecified; E55.9 Vitamin D deficiency, unspecified; I25.3 Aneurysm of heart; Q21.12 Patent foramen ovale | CPT/HCPCS: 90471; 90656; 96127 ==

== ENCOUNTER 2024-08-09 13:13 | Outpatient (REF) | payer BC, SELFPAY ==
--- NOTE | ~2024-08-09 | MM_ITS ---
EXAMINATION: DXA BONE DENSITY AXIAL HISTORY: Estrogen deficiency TECHNIQUE: [email or web address] Dual energy absorptiometry (DEXA) of the lumbar spine, total left hip, and femoral neck was performed. COMPARISON: There are no prior studies for comparison. FINDINGS: The bone mineral density of the lumbar spine is 1.142 with a T-score of -0.3, and a Z-score of 0.6. This is indicative of normal bone mineral density. The bone mineral density of the left total hip is 0.884 with a T-score of -1.0, and a Z-score of -0.2. This is indicative of normal bone mineral density. The bone mineral density of the left femoral neck is 0.825 with a T-score of -1.5, and a Z-score of -0.4. This is indicative of osteopenia. FRACTURE RISK: The FRAX index suggests a risk of major osteoporotic fracture of 7.3%, and of hip fracture 0.6%. MM/XR DEXA axial skeleton IMPRESSION: Based on bone mineral density, and according to World Health Organization (WHO) criteria, the diagnosis is consistent with osteopenia. All bone density values are in grams per centimeter squared (g/cm2). Statistically, 68% of repeat scans fall within 1 SD (+/- 0.010 g/cm2 for AP spine L1-L4) and 1 SD (+/- 0.012 g/cm2 for femur total) FRAX is a trademark of the [employer] [facility] [facility] [employer] [facility], a World Health Organization (WHO) Collaborating Center. Electronically signed by: Hoang Isaac MD 08/09/2024 01:59 PM EDT
== END 2024-08-09 13:14 | disposition home or self-care (01) ==
LOC: HO.MAMMO 13:13
PROVIDERS: PCP Nurse Practitioner Family; Visit Provider Nurse Practitioner Family
DX: Z13.820 Encounter for screening for osteoporosis (principal); Z78.0 Asymptomatic menopausal state
CPT/HCPCS: 77080

== ENCOUNTER → 2024-08-09 13:30 | Outpatient (BNV) | payer BC, SELFPAY | PROVIDERS: PCP Nurse Practitioner Family; Visit Provider Radiology Diagnostic Radiology | DX: E28.39 Other primary ovarian failure (principal) | CPT/HCPCS: 77080 ==

== ENCOUNTER 2024-08-12 12:55 | Outpatient (AMB) | payer BC, SELFPAY ==
[2024-08-12 13:17] VITALS: BP 120/76; BMI 27.6
--- NOTE | 2024-08-12 13:17 | MHC.OFFVIS ---
Vital Signs 08/12/24 13:17 Height 5 ft 1 in Weight 146 lb BMI 27.6 BP 120/76 Intake Visit Reasons: Intake Allergies No Known Allergies Allergy (Mild, Verified 08/12/24 13:19) NONE HPI HPI Intake: Details: She is here for AUD. She drinks with up to 3 bottles of wine a night for last 5-6 years and wants to quit but finds it difficult to do so. She is looking for assistance, She did quit for a whole month with in May. She sees [facility] for PCP and SGOT and SGPT have been 40-60 range. She has no abdominal pain and no jaundice. 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 no behavioural diagnosis,sees [facility] general [facility] no gambling or addictive behaviour no psych hospitalizations no SI or HI No HIV no brain injury no seizures ever no Hep A,B ,C recent fall on chin but denies neuropathy no incarceration or legal history PFSH Medical History Elevated LFTs Liver lesion Scoliosis High cholesterol Hypertension Surgical History History of colonoscopy (~2018) History of wisdom tooth extraction History of tubal ligation Family History Father High cholesterol HTN (hypertension) CVD (cardiovascular disease) Mother Breast cancer Colon cancer Hyperlipidemia Paternal Grandfather Colon cancer Paternal Grandmother No problems noted. Social History Household Members: Spouse Housing: House Are you a primary intensive care medicine specialist to a significant other at home: No Do you presently have visiting nurse or other home services: No 75 years or older and lives alone: No Alcohol intake: current Alcohol intake frequency: holidays/special occasions only Alcohol type: wine Patient Tobacco Use Status: Never used Tobacco e-Cigarette/Vaping Use: Never Used service: No Current occupational status: employed Current occupation: [employer] Cognitive needs: No Hearing needs: No Vision needs: Yes (wear glasses) Review of Systems Const All systems reviewed & are unremarkable except as noted in HPI and below Physical Exam Vital Signs: Last Vital Signs BP 120/76 08/12/24 13:17 BMI result Body Mass Index 27.6 Neck Other: bruise chin fall Resp Effort & Inspection: normal respiratory effort Cardio Rate: regular rate GI Inspection: Yes normal to inspection Neuro Other: no obvious neuropathy Cranial nerves: Yes CN's II-XII intact bilaterally Cognition (Neuro): normal cognition Gait exam (Neuro): Normal gait present Assessment & Plan Assessment & Plan (1) Elevated LFTs: Comment: no obvious concerns on abd u/s ,small cyst check fibrosis score and PT Code(s): R79.89 - Other specified abnormal findings of blood chemistry Category: Medical Plan: na (2) Alcohol use disorder: Comment: interested in meds Code(s): F10.90 - Alcohol use, unspecified, uncomplicated Category: Medical Plan: take naltrexone 50 mg daily for a month and televisit if not decreasing consumption alcohol take campral bid MVI,folate,thiamine PCV-20,MCV4 and regular flu shots. Vivitrol if naltrexone working Decrease alcohol 10-20% weekly pamphlets given by nurse for support Try AA Orders: Orders Liver Fibrosis Pnl Today R79.89 - Other specified abnormal findings of blood chemistry Prothrombin Time INR Today R79.89 - Other specified abnormal findings of blood chemistry Medications: New acamprosate administer with mid-day and evening meals 333 mg PO BID 30 days 60 tabs 0RF thiamine HCl (vitamin B1) 100 mg PO DAILY 30 days 30 caps 5RF naltrexone 50 mg PO DAILY 30 days 30 tabs 0RF Coding Level of Care Code New Pt Level 4 (70636) Diagnoses Elevated LFTs . Alcohol use disorder F10.90
== END 2024-08-12 14:08 | disposition home or self-care (01) ==
LOC: HO.HID 12:55
PROVIDERS: PCP Nurse Practitioner Family; Visit Provider Internal Medicine
DX: R79.89 Other specified abnormal findings of blood chemistry (principal); F10.90 Alcohol use, unspecified, uncomplicated
CPT/HCPCS: 99204

== ENCOUNTER 2024-08-31 12:41 | Outpatient (REF) | payer BC, SELFPAY ==
[2024-08-31 13:50] LABS: INTERNATIONAL NORM RATIO 0.9 (0.9-1.1); Prothrombin Time 10.6 SEC (10.9-12.4)
[2024-09-05 00:53] LABS: FIB-ALT 51 U/L (6-29); FIB-Alpha-2-Macroglobulin 157 mg/dL (106-279); FIB-Apolipoprotein A1 237 mg/dL (101-198); FIB-GGT 152 U/L (3-70); FIB-Haptoglobin 220 mg/dL (43-212); FIB-Total Bilirubin 0.8 mg/dL (0.2-1.2); Liver Fibrosis Score 0.11; Liver Fibrosis Stage F0; Nec Inflam Act Grade A0-A1; Nec Inflam Act Score 0.24; Reference ID 5456500
== END 2024-08-31 12:42 | disposition home or self-care (01) ==
LOC: HO.LAB 12:41
PROVIDERS: PCP Nurse Practitioner Family; Visit Provider Internal Medicine
DX: R79.89 Other specified abnormal findings of blood chemistry (principal)
CPT/HCPCS: 36415; 81596; 85610

== ENCOUNTER 2024-09-09 13:54 | Outpatient (AMB) | payer BC, SELFPAY ==
--- NOTE | 2024-09-09 14:34 | MHC.OFFVIS ---
Vital Signs 09/09/24 14:42 Height 5 ft 1 in Pulse 57 Pulse Source Pulse Oximeter Pulse Oximetry (%) 96 Oxygen Delivery Method Room Air Intake Visit Reasons: MAT Allergies No Known Allergies Allergy (Mild, Verified 09/09/24 14:43) NONE HPI Comments Details: She is doing well and hasnt had alcoholic drink in twenty six days. She is enjoying herself and naltrexone is working. She has no side effects to medication and doesnt want the shot. There was no no liver damage on fibrosis testing.F0. PFSH Medical History Elevated LFTs Liver lesion Scoliosis High cholesterol Hypertension Surgical History History of colonoscopy (~2018) History of wisdom tooth extraction History of tubal ligation Family History Father High cholesterol HTN (hypertension) CVD (cardiovascular disease) Mother Breast cancer Colon cancer Hyperlipidemia Paternal Grandfather Colon cancer Paternal Grandmother No problems noted. Social History Household Members: Spouse Housing: House Are you a primary hospice care transitions coordinator to a significant other at home: No Do you presently have visiting nurse or other home services: No 75 years or older and lives alone: No Alcohol intake: current Alcohol intake frequency: holidays/special occasions only Alcohol type: wine Patient Tobacco Use Status: Never used Tobacco e-Cigarette/Vaping Use: Never Used service: No Current occupational status: employed Current occupation: [employer] [place] Cognitive needs: No Hearing needs: No Vision needs: Yes (wear glasses) Review of Systems Const All systems reviewed & are unremarkable except as noted in HPI and below Physical Exam Vital Signs: Last Vital Signs Pulse 57 09/09/24 14:42 Pulse Ox 96 09/09/24 14:42 Oxygen Delivery Method Room Air 09/09/24 14:42 Const General: cooperative Results AMB 14 Panel Urine Drug Screen Urine Marijuana (THC) Positive Last Edit by Jez Starr CMA on 09/09/24 14:43 Urine Cocaine Negative Last Edit by Jez Starr CMA on 09/09/24 14:43 Urine Morphine Negative Last Edit by Jez Starr CMA on 09/09/24 14:43 Urine Methamphetamine Negative Last Edit by Jez Starr CMA on 09/09/24 14:43 Urine Amphetamine Negative Last Edit by Jez Starr CMA on 09/09/24 14:43 Urine Benzodiazepine Negative Last Edit by Jez Starr CMA on 09/09/24 14:43 Urine Barbiturates Negative Last Edit by Jez Starr CMA on 09/09/24 14:43 Urine Methadone Negative Last Edit by Jez Starr CMA on 09/09/24 14:43 Urine Buprenorphine Negative Last Edit by Jez Starr CMA on 09/09/24 14:43 Urine Tricyclic Antidepressant Negative Last Edit by Jez Starr CMA on 09/09/24 14:43 Urine MDMA Negative Last Edit by Jez Starr CMA on 09/09/24 14:43 Urine Oxycodone Negative Last Edit by Jez Starr CMA on 09/09/24 14:43 Urine Phencyclidine Negative Last Edit by Jez Starr CMA on 09/09/24 14:43 Urine Propoxyphene Negative Last Edit by Jez Starr CMA on 09/09/24 14:43 Results Reviewed Results Reviewed: Laboratory Last Values POC Urine Buprenorphine Negative 09/09/24 14:35 POC Urine Morphine Negative 09/09/24 14:35 POC Urine Oxycodone Negative 09/09/24 14:35 POC Urine Methadone Negative 09/09/24 14:35 POC Urine Propoxyphene Negative 09/09/24 14:35 POC Urine Barbiturates Negative 09/09/24 14:35 POC U Tricyclic Antidpr Negative 09/09/24 14:35 POC Urine PCP Negative 09/09/24 14:35 POC Ur Amphetamines Negative 09/09/24 14:35 POC Ur Methamphetamine Negative 09/09/24 14:35 POC Urine MDMA Negative 09/09/24 14:35 POC Ur Benzodiazepine Negative 09/09/24 14:35 POC Urine Cocaine Negative 09/09/24 14:35 POC Ur Marijuana (THC) Positive 09/09/24 14:35 Assessment & Plan Assessment & Plan (1) Alcohol use disorder: Comment: She has been doing well. Code(s): F10.90 - Alcohol use, unspecified, uncomplicated Category: Medical Plan: Continue Naltrexone 50 mg daily. See in one month. Continue thiamine and folic acid. Orders: Orders AMB 14 Panel Urine Drug Screen Today Z51.81 - Encounter for therapeutic drug level monitoring Medications: Refilled naltrexone 50 mg PO DAILY 30 days 30 tabs 5RF Coding Level of Care Code Est Pt Level 3 (84950) Diagnoses Alcohol use disorder F10.90
[2024-09-09 14:42] VITALS: PULSE 57; O2SAT 96
== END 2024-09-09 14:45 | disposition home or self-care (01) ==
LOC: HO.HCC 13:55
PROVIDERS: PCP Nurse Practitioner Family; Visit Provider Internal Medicine
DX: F10.90 Alcohol use, unspecified, uncomplicated (principal); Z51.81 Encounter for therapeutic drug level monitoring
CPT/HCPCS: 99213

== ENCOUNTER → 2024-09-09 13:54 | Outpatient (BNVA) | payer BC, SELFPAY | PROVIDERS: PCP Nurse Practitioner Family; Visit Provider Internal Medicine | DX: F10.90 Alcohol use, unspecified, uncomplicated (principal); Z51.81 Encounter for therapeutic drug level monitoring | CPT/HCPCS: 80307 ==

== ENCOUNTER → 2024-09-28 08:28 | Outpatient (REF) | payer BC, SELFPAY ==
--- NOTE | ~2024-09-28 | NM_ITS ---
EXERCISE MYOCARDIAL PERFUSION STUDY INDICATION: Shortness of breath to evaluate for myocardial ischemia TECHNIQUE: The patient was brought in for an exercise perfusion study on 09/28/2024. Patient performed exercise as per Charan protocol and was injected 25 mCi of sestamibi once target heart rate was achieved. Images were obtained using the SPECT gamma camera interlaced with the gating device. Images were obtained in supine position. Resting perfusion study was performed on 09/29/2024. Patient was administered 25 mCi of sestamibi intravenously at rest. Images were then obtained in supine position. Images obtained without without CT attenuation. Total DLP 92 mGy-cm. Images were processed with the software and compared side to side in short axis, horizontal long axis and vertical long axis views. FINDINGS: Raw images were reviewed The stress perfusion study showed nonattenuated images show mildly reduced uptake in the distal anterior and apical wall of the LV myocardium. Remainder of the LV myocardium is normally perfused. Attenuation corrected images show minimal thinning of the distal anterior and apical wall of the LV myocardium.. The gated study shows normal LV systolic function with calculated LVEF of 64%. LV cavity is normal in size. The gated study shows normal systolic wall thickening and contraction of segments. Resting study shows nonattenuated attenuated corrected images show normal uptake ordered images in all segments of the LV myocardium. Gating at rest reveals normal systolic wall motion with ejection fraction at greater than 60%. The findings are consistent with small area of minimally reduced uptake which is reversible, in the distal anterior and apical wall equivocal for ischemia. NM/NM cardiolite stress test IMPRESSION: 1. Myocardial perfusion imaging study shows equivocal for ischemia in the distal anterior and apical wall in the mid to distal LAD territory. 2. Gated LVEF is 64%. 3. Transient ischemic dilatation not present. EKG revealed no significant ischemic changes. Electronically signed by: Sudeep Perdomo MD 09/29/2024 05:02 PM EDT
--- NOTE | 2024-09-28 08:31 | CA_ITS ---
Acquisition Time: 2024-09-28 08:33:35 Total Exercise Time: 00:10:15 Test Indications: SOB, DYSPNEA Medications: SEE H&P Protocol: OSBALDO Max HR: 151 BPM 92% of Pred: 163 BPM Max BP: 184/80 mmHG Max Work Load: 12.1 METS Exercise stress test with exercise 10 mins 15 secs of Osbaldo Protocol, achieving 92% MPHR, with reports of severe SOB, with isolated PVCs, with normotensive response to exercise. With T wave inversions, baseline nonspecific T waves. In recovery, pt's breathing improved quickly. Nuclear images pending. Test reviewed with Dr. Melendez. Referred By: Le Newsome Electronically Signed By: Raf Brambila
== END ==
LOC: HO.CARD 08:28
PROVIDERS: PCP Nurse Practitioner Family; Visit Provider Nurse Practitioner Family
DX: R06.09 Other forms of dyspnea (principal); Q21.12 Patent foramen ovale; I25.3 Aneurysm of heart
CPT/HCPCS: 78452; 93017; A9500; J0280; J2785

== ENCOUNTER → 2024-09-28 08:31 | Outpatient (BNV) | payer BC, SELFPAY | PROVIDERS: PCP Nurse Practitioner Family | DX: R06.02 Shortness of breath (principal); I49.3 Ventricular premature depolarization | CPT/HCPCS: 78452; 93016; 93018 ==

== ENCOUNTER 2024-10-05 08:57 | Outpatient (AMB) | payer BC, SELFPAY ==
--- NOTE | 2024-10-05 09:03 | A.OFFVIS_ITS ---
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 Education Required: No Accompanied by: Self / Same As Patient Allergies No Known Allergies Allergy (Mild, Verified 09/09/24 14:43) NONE Medication List - Last Reconciled 10/05/24 by Bin Melendez MD aspirin (Adult Aspirin Regimen) 81 mg PO DAILY atenolol 50 mg PO DAILY betamethasone valerate 0.12% 1 appl topical BID hydroxyzine HCl 25 mg PO BEDTIME PRN levothyroxine 150 mcg PO DAILY multivitamin 1 tab PO DAILY naltrexone 50 mg PO DAILY 30 days rosuvastatin 20 mg PO BEDTIME thiamine HCl (vitamin B1) 100 mg PO DAILY 30 days HPI Comments Details: [age] year female with background history of hypothyroidism, hyperlipidemia and hypertension presenting with progressive dyspnea on exertion over the last year. She underwent stress testing which was abnormal and showed mid to distal LAD territory ischemia. She is saying that she is getting short of breath with short distance walking. 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 She is denying any chest discomfort right now but has had chest pains radiating to the back a few times in the past and she came to the emergency department and was ruled out. She was drinking heavily but has been sober for approximately 2 months at this point. Labs, EKG and imaging reviewed. [facility] Medical History Elevated LFTs Liver lesion Scoliosis High cholesterol Hypertension Surgical History History of colonoscopy (~2018) History of wisdom tooth extraction History of tubal ligation Family History Father High cholesterol HTN (hypertension) CVD (cardiovascular disease) Mother Breast cancer Colon cancer Hyperlipidemia Paternal Grandfather Colon cancer Paternal Grandmother No problems noted. Social History Household Members: Spouse Housing: House Are you a primary customer care professional to a significant other at home: No Do you presently have visiting nurse or other home services: No 75 years or older and lives alone: No Alcohol intake: current Alcohol intake frequency: holidays/special occasions only Alcohol type: wine Patient Tobacco Use Status: Never used Tobacco e-Cigarette/Vaping Use: Never Used service: No Current occupational status: employed Current occupation: [employer] – [place] Cognitive needs: No Hearing needs: No Vision needs: Yes (wear glasses) Review of Systems Const Denies chills, Denies fatigue, Denies fever(s), Denies frequent falls, Denies weakness, Denies weight gain and Denies weight loss ENT Denies dizziness Card Denies chest pain, Denies leg edema, Denies lightheadedness, Denies palpitations, Reports dyspnea, Reports dyspnea on exertion and Denies orthopnea Resp Denies cough, Reports dyspnea and Reports dyspnea on exertion GI Denies bloating and Denies change in bowel habits Musc Denies muscle weakness, Reports numbness and Denies tingling Neuro Denies dizziness, Denies frequent falls, Reports numbness, Denies tingling and Denies weakness Endo Denies fatigue and Denies palpitations Physical Exam Vital Signs: Last Vital Signs Pulse 50 10/05/24 09:06 BP 118/64 10/05/24 09:06 BMI result Body Mass Index 28.5 GENERAL APPEARANCE: in no acute distress, pleasant. NECK: no carotid bruit, no jugular venous distention. SKIN: no suspicious lesions, warm and dry. HEART: no murmurs, regular rate and rhythm. LUNGS: clear to auscultation bilaterally. ABDOMEN: soft, nontender. EXTREMITIES: no edema. PERIPHERAL PULSES: equal. NEUROLOGIC: No gross deficits, AAO X 3 Office Procedures EKG Details: Sinus bradycardia 50 beats per minute, normal axis, poor R-wave progression and can not rule out anterior infarct, QTC 432 milliseconds. [id number], Complete Assessment & Plan Assessment & Plan (1) Abnormal stress test: Code(s): R94.39 - Abnormal result of other cardiovascular function study Category: Medical Plan Pleasant 59 year female who is here for dyspnea on exertion and abnormal nuclear perfusion imaging. She has background history of hypertension and hyperlipidemia. She also had transthoracic echocardiogram in 2019 which showed low normal ejection fraction 50 55% and into atrial septal aneurysm with [id number] shunting due to patent [place]. She is on baby aspirin currently. Nuclear perfusion imaging is showing LAD territory ischemia. She has dyspnea on exertion. We will arrange a diagnostic angiogram for her. She is agreeable for that. We will do basic blood workup before that. She will continue the current medications. Blood pressure well controlled. In July 2024 she underwent lipid panel which showed total cholesterol 248, triglycerides 192, LDL 143 and HDL 67. She is on rosuvastatin and will need a fasting lipid panel. Thank you for allowing me to participate in the care of your patient. Please feel free to contact me if you have any questions. Orders: Orders B Type Natriuretic Peptide Today R94.39 - Abnormal result of other cardiovascular function study Basic Metabolic Panel Today R94.39 - Abnormal result of other cardiovascular function study Complete Blood Count no Diff Today R94.39 - Abnormal result of other cardiovascular function study Prothrombin Time INR Today R94.39 - Abnormal result of other cardiovascular function study Cardiac Cath LT Diagnostic Today R94.39 - Abnormal result of other cardiovascular function study Coding Level of Care Code New Pt Level 4 (96003) Diagnoses Abnormal stress test R94.39 CPT Codes EKG - CPT: 19100-[id number], Complete ([id number])
[2024-10-05 09:06] VITALS: BP 118/64; PULSE 50; BMI 28.5
== END 2024-10-05 09:36 | disposition home or self-care (01) ==
LOC: HO.HCS 08:58
PROVIDERS: PCP Nurse Practitioner Family; Visit Provider Internal Medicine Cardiovascular Disease
DX: R94.39 Abnormal result of other cardiovascular function study (principal)
CPT/HCPCS: 93010; 99204

== ENCOUNTER → 2024-10-05 08:57 | Outpatient (BNVA) | payer BC, SELFPAY | PROVIDERS: PCP Nurse Practitioner Family; Visit Provider Internal Medicine Cardiovascular Disease | DX: R94.39 Abnormal result of other cardiovascular function study (principal); I10 Essential (primary) hypertension; E78.5 Hyperlipidemia, unspecified | CPT/HCPCS: 93005 ==

== ENCOUNTER 2024-10-07 07:28 | Outpatient (REF) | payer BC, SELFPAY ==
[2024-10-07 08:00] LABS: Hematocrit 42.8 % (37.0-47.0); Hemoglobin 14.1 g/dl (12.0-16.0); Mean Corpuscular HGB Conc 32.9 g/dl (31.0-35.0); Mean Corpuscular Hemoglobin 31.1 pg (27.0-33.0); Mean Corpuscular Volume 94.5 fL (80.0-98.0); Mean Platelet Volume 9.3 fL (9.4-12.3); Platelet Count 231 X10*3/uL (160-400); Red Blood Count 4.53 X10*6/uL (4.20-5.50); Red Cell Distribution Width 13.3 % (11.0-16.0); White Blood Count 6.9 X10*3/uL (4.8-10.8)
[2024-10-07 08:20] LABS: B Type Natriuretic Peptide < 10 pg/mL (<100)
[2024-10-07 08:27] LABS: INTERNATIONAL NORM RATIO 0.9 (0.9-1.1); Prothrombin Time 10.6 SEC (10.9-12.4)
[2024-10-07 08:28] LABS: Anion Gap 11 (12-20); Blood Urea Nitrogen 21 mg/dL (9-16); Calcium 10.2 mg/dL (8.4-10.2); Carbon Dioxide 28 mmol/L (22-29); Chloride 106 mmol/L (96-108); Estimated Glomerular Filt Rate > 60; Glucose Random 100 mg/dL (60-115); Potassium 4.1 mmol/L (3.3-5.1); Sodium 141 mmol/L (135-145)
== END 2024-10-07 07:29 | disposition home or self-care (01) ==
LOC: HO.LAB 07:28
PROVIDERS: PCP Nurse Practitioner Family; Visit Provider Internal Medicine Cardiovascular Disease
DX: R94.39 Abnormal result of other cardiovascular function study (principal); Z79.01 Long term (current) use of anticoagulants
CPT/HCPCS: 36415; 80048; 83880; 85027; 85610

== ENCOUNTER 2024-10-10 13:11 | Outpatient (AMB) | payer BC, SELFPAY ==
[2024-10-10 13:23] VITALS: PULSE 57; O2SAT 97
--- NOTE | 2024-10-10 13:23 | A.OFFVIS_ITS ---
Vital Signs 10/10/24 13:23 Pulse 57 Pulse Source Pulse Oximeter Pulse Oximetry (%) 97 Oxygen Delivery Method Room Air Intake Visit Reasons: MAT Allergies No Known Allergies Allergy (Mild, Verified 10/10/24 13:24) NONE HPI HPI MAT: Details: She is doing well and not using alcohol for almost two months. She has only one time transient craving with stress. [facility] Medical History Elevated LFTs Liver lesion Scoliosis High cholesterol Hypertension Surgical History History of colonoscopy (~2018) History of wisdom tooth extraction History of tubal ligation Family History Father High cholesterol HTN (hypertension) CVD (cardiovascular disease) Mother Breast cancer Colon cancer Hyperlipidemia Paternal Grandfather Colon cancer Paternal Grandmother No problems noted. Social History Household Members: Spouse Housing: House Are you a primary day care aide to a significant other at home: No Do you presently have visiting nurse or other home services: No 75 years or older and lives alone: No Alcohol intake: current Alcohol intake frequency: holidays/special occasions only Alcohol type: wine Patient Tobacco Use Status: Never used Tobacco e-Cigarette/Vaping Use: Never Used service: No Current occupational status: employed Current occupation: [employer] – [place] Cognitive needs: No Hearing needs: No Vision needs: Yes (wear glasses) Review of Systems Const All systems reviewed & are unremarkable except as noted in HPI and below Physical Exam Vital Signs: Last Vital Signs Pulse 57 10/10/24 13:23 Pulse Ox 97 10/10/24 13:23 Oxygen Delivery Method Room Air 10/10/24 13:23 Const General: cooperative Assessment & Plan Assessment & Plan (1) Alcohol use disorder: Comment: She has been doing well. Code(s): F10.90 - Alcohol use, unspecified, uncomplicated Category: Medical Plan: Continue current treatment with naltrexone See as scheduled one month and then every other month. Coding Level of Care Code Est Pt Level 3 (81751) Diagnoses Alcohol use disorder F10.90
== END 2024-10-10 13:57 | disposition home or self-care (01) ==
LOC: HO.HCC 13:11
PROVIDERS: PCP Nurse Practitioner Family; Visit Provider Internal Medicine
DX: F10.90 Alcohol use, unspecified, uncomplicated (principal)
CPT/HCPCS: 99213

== ENCOUNTER → 2024-10-10 13:11 | Outpatient (BNVA) | payer BC, SELFPAY | PROVIDERS: PCP Nurse Practitioner Family; Visit Provider Internal Medicine ==

== ENCOUNTER 2024-10-11 08:41 | Emergency (ER) | payer BC, SELFPAY ==
[2024-10-11] VITALS (17 sets, daily range): BP systolic 87–139; BP diastolic 48–67; PULSE 44–62; RESP 10–18; TEMP 35.9–36.8; O2SAT 92–105; BMI 27.0; BMI 29.0
--- NOTE | 2024-10-11 | ECG_ITS ---
Test Reason : chest pain Blood Pressure : */* mmHG Vent. Rate : 56 BPM Atrial Rate : 56 BPM P-R Int : 220 ms QRS Dur : 100 ms QT Int : 446 ms P-R-T Axes : 23 -8 51 degrees QTcB Int : 430 ms Sinus bradycardia with 1st degree A-V block Nonspecific T wave abnormality Abnormal ECG When compared with ECG of 28-Mar-2019 16:10, RI interval has increased Referred By: Generic ED Physician Electronically Signed By: SANTIAGO CHRISTINE
--- NOTE | 2024-10-11 08:54 | ED.CHESTPAIN ---
HPI - Chest Pain General Chief Complaint: Chest Pain Stated Complaint: Chest pain Time Seen by Provider: 10/11/24 08:53 History of Present Illness HPI narrative: 59-year-old female with a past medical history of hypothyroidism, hyperlipidemia and hypertension presenting to the emergency department for evaluation of chest pain. The patient states that she has had dyspnea on exertion for 1 year which got progressively worse. The patient's PCP ordered a nuclear medicine stress test on the patient which was done on 09/28/2024. Myocardial perfusion imaging study shows equivocal for ischemia in the distal anterior and apical wall in the mid to distal LAD territory. patient was seen by Dr. Melendez who was scheduled the patient for an elective cardiac catheterization next week. The patient developed chest pain on 10/09/2024. Patient states she had 3-4 episodes of mid sternal chest pressure, which lasted a proximally 30 minutes. she had no other associated symptoms. This morning at 07:00 hours she again developed midsternal chest pressure which was 5/10. The pain radiated to her left chest and to her left scapula. Patient contacted her formulation chemist's office in his of the advised to go to [facility] however patient came here to [facility] instead since her formulation chemist is here. Related Data Home Medications ?Medication ?Instructions ?Recorded ?Confirmed aspirin 81 mg tablet,delayed 81 mg PO DAILY 01/19/24 10/05/24 release (Adult Aspirin Regimen) levothyroxine 150 mcg tablet 150 mcg PO DAILY 01/19/24 10/05/24 multivitamin 1 tab PO DAILY 01/19/24 10/05/24 rosuvastatin 20 mg tablet 20 mg PO BEDTIME 01/19/24 10/05/24 Previous Rx's ?Medication ?Instructions ?Recorded atenolol 50 mg tablet 50 mg PO DAILY #90 tabs 03/24/24 betamethasone valerate 0.12 % 1 appl topical BID #100 grams 07/13/24 topical foam thiamine HCl (vitamin B1) 100 mg 100 mg PO DAILY 30 days #30 caps 08/12/24 capsule hydroxyzine HCl 25 mg tablet 25 mg PO BEDTIME PRN insomnia #60 08/19/24 tabs naltrexone 50 mg tablet 50 mg PO DAILY 30 days #30 tabs 09/09/24 Allergies Allergy/AdvReac Type Severity Reaction Status Date / Time No Known Allergies Allergy Mild NONE Verified 10/11/24 08:59 Review of Systems Review of Systems: Yes all other systems are reviewed and are negative [facility] Past Medical History [facility] Narrative: social history: The patient denies tobacco use. She states that she did smoke cigarettes 30 years prior. She denied drug and alcohol use. Medical History Elevated LFTs Liver lesion Scoliosis High cholesterol Hypertension Surgical History History of colonoscopy (~2018) History of wisdom tooth extraction History of tubal ligation Family History Family History Father High cholesterol HTN (hypertension) CVD (cardiovascular disease) Mother Breast cancer Colon cancer Hyperlipidemia Paternal Grandfather Colon cancer Paternal Grandmother No problems noted. Social History Social History Household Members: Spouse Housing: House Are you a primary career consultant to a significant other at home: No Do you presently have visiting nurse or other home services: No Alcohol intake: former Patient Tobacco Use Status: Never used Tobacco Smoked in Last 30 Days: No e-Cigarette/Vaping Use: Never Used Use of substances other than those prescribed or required for medical reasons: No Advance Directives: No Advance Directives Information Provided: Yes Do you have a plan to hurt others: No Plan service: No Current occupational status: employed Current occupation: [employer] Cognitive needs: No Hearing needs: No Vision needs: Yes (wear glasses) Physical Exam Vital Signs: Vital Signs: Last Vital Signs Temp 97.9 F 10/11/24 15:03 Pulse 48 L 10/11/24 15:03 Resp 14 10/11/24 15:03 BP 100/52 L 10/11/24 15:03 Pulse Ox 95 10/11/24 15:03 O2 Del Method Room Air 10/11/24 15:03 BMI result Body Mass Index 29.0 Vital signs were normal. Exam: General: Awake, alert in no distress Head: Normocephalic, atraumatic EENT: PERRL, Lids normal, sclera normal, conjunctiva normal, nose normal , ears normal, throat without erythema or exudates Neck: Supple, no adenopathy Lung: breath sounds symmetric, no wheezing, rales or rhonchi Chest: symmetric movement, nontender Heart: regular rate and rhythm, normal S1, S2 no murmurs or rubs Abdomen: soft, non-tender, nondistended, normal bowel sounds Back: no vertebral tenderness, no CVAT Extremities: no deformities, moves all extremities symmetrically Neuro: Awake, alert, oriented, normal speech, cranial nerves intact, moves all extremities symmetrically Psych: Pleasant, cooperative Medications Administered Generic Name Dose Route Start Last Admin Trade Name Freq PRN Reason Stop Dose Admin Sodium Chloride 1,000 mls @ 125 mls/hr 10/11/24 09:30 10/11/24 13:28 Ns IVCONT Infused .Q8H KAILA Infusion Heparin Sodium/Sodium Chloride 25,000 unit in 250 mls @ 0 mls/hr 10/11/24 14:30 10/11/24 15:12 Heparin Sodium,Porcine/1/2ns IVCONT 12 units/kg/hr .Q0M KAILA 8.35 mls/hr Administration Protocol Per Protocol Nitroglycerin 0.4 mg 10/11/24 09:18 10/11/24 10:05 Nitroglycerin 0.4 Mg Tab.Subl SUBLINGUAL 0.4 mg [id number] PRN Administration Chest Pain Discontinued Medications Generic Name Dose Route Start Last Admin Trade Name Freq PRN Reason Stop Dose Admin Aspirin 243 mg 10/11/24 09:17 10/11/24 09:45 Aspirin 81 Mg Tab.Chew PO 10/11/24 09:18 243 mg ONCE ONE Administration Fentanyl 25 mcg 10/11/24 11:34 10/11/24 11:46 Fentanyl Citrate/Pf 100 Mcg/2 Ml Vial IVPUSH 10/11/24 11:35 25 mcg ONCE ONE Administration Protocol Heparin Sodium (Porcine) 4,000 unit 10/11/24 14:16 10/11/24 15:07 Heparin Sodium,Porcine 5,000 Unit/Ml Vial IVPUSH 10/11/24 14:17 4,000 unit ONCE ONE Administration Nitroglycerin 1 inch 10/11/24 11:33 10/11/24 15:05 Nitroglycerin 2 % Oint 1 Gm Packet TRANSDERMA 10/11/24 11:34 1 inch ONCE ONE Administration Medical Decision Making Medical Decision Making MDM Narrative: 59-year-old female with a past medical history of hypothyroidism, hyperlipidemia and hypertension presenting to the emergency department for evaluation of chest pain. The patient states that she has had dyspnea on exertion for 1 year which got progressively worse. The patient's PCP ordered a nuclear medicine stress test on the patient which was done on 09/28/2024. Myocardial perfusion imaging study shows equivocal for ischemia in the distal anterior and apical wall in the mid to distal LAD territory. patient was seen by Dr. Melendez who was scheduled the patient for an elective cardiac catheterization next week. The patient developed chest pain on 10/09/2024. Patient states she had 3-4 episodes of mid sternal chest pressure, which lasted a proximally 30 minutes. she had no other associated symptoms. This morning at 07:00 hours she again developed midsternal chest pressure which was 5/10. The pain radiated to her left chest and to her left scapula. Patient contacted her formulation chemist's office in his of the advised to go to [facility] however patient came here to [facility] instead since her formulation chemist is here.Vital signs were normal. Physical examination was unremarkable. Differential diagnosis: Includes but is not limited to Myocardial infarction, myocardial ischemia, acute coronary syndrome, unstable angina Course: 15:46 my independent interpretation patient's laboratory evaluation as follows: CBC was normal. BUN elevated 19. Glucose elevated 135. ALT elevated 58. Bilirubin elevated 1.2. Initial troponin was less than 2.7. Repeat troponin was detectable but not elevated at 4.4. Patient initially had chest pressure which is 5/10 which was almost completely relieved with sublingual nitroglycerin x3. Patient's chest pain did return and she was given fentanyl 25 mg IV. Patient was also given nitro paste 1 in to her chest wall. Patient took aspirin 81 mg orally prior to coming to the emergency department and she was given aspirin 243 mg orally here in the emergency department. at this time, the patient is pain-free. I did discuss the patient's presentation over tiger text with our covering formulation chemist, Dr. Hassan who felt that the patient should be transferred to [facility] on the hospitalist service. He did discuss transfer with the covering hospitalist and the accepting attending is Emeterio Koo. Admission/Observation Consideration of admission/observation: Escalation of care including admission/observation considered ( Yes) Consult Healthcare Provider Management of the patient was discussed with: Paratransit Operator ( Dr. Hassan) Lab Data MDM Lab Attestation statement: I reviewed the patient's lab results. 10/11/24 08:52 10/11/24 08:52 Labs: Lab Results 10/11/24 10/11/24 10/11/24 Range/Units 08:52 09:02 11:26 WBC 6.1 (4.8-10.8) X10*3/uL RBC 4.71 (4.20-5.50) X10*6/uL Hgb 14.6 (12.0-16.0) g/dl Hct 43.6 (37.0-47.0) % MCV 92.6 (80.0-98.0) fL MCH 31.0 (27.0-33.0) pg MCHC 33.5 (31.0-35.0) g/dl RDW 13.0 (11.0-16.0) % Plt Count 229 (160-400) X10*3/uL MPV 9.0 L (9.4-12.3) fL Immature Gran % (Auto) 0.3 (0.0-0.4) % Neut % (Auto) 55.9 (45-73) % Lymph % (Auto) 33.3 (20-40) % Hunt % (Auto) 8.7 (2-11) % Eos % (Auto) 1.0 (0-4) % Baso % (Auto) 0.8 (0-2) % Lymph # (Auto) 2.0 (1.2-4.9) X10*3/uL Hunt # (Auto) 0.5 (0.1-1.2) X10*3/uL Eos # (Auto) 0.1 (0.0-0.4) X10*3/uL Baso # (Auto) 0.1 (0.0-0.2) X10*3/uL Abs Immat Gran (auto) 0.02 (0.00-0.03) X10*3/uL Absolute Neuts (auto) 3.4 (2.0-8.3) x10*3/uL Absolute Nucleated RBC 0.000 (0.0-0.012) X10*3/uL Nucleated RBC % (auto) 0.0 (0.0-0.2) /100WBC PT 10.9 (10.9-12.4) SEC INR 1.0 (0.9-1.1) APTT (26.0-36.8) SEC Sodium 141 (135-145) mmol/L Potassium 3.8 (3.3-5.1) mmol/L Chloride 105 (96-108) mmol/L Carbon Dioxide 27 (22-29) mmol/L Anion Gap 13 (12-20) BUN 19 H (9-16) mg/dL Creatinine 0.83 (0.5-1.4) mg/dL Estim Creat Clear Calc 64.4 Estimated GFR > 60 Random Glucose 135 H (60-115) mg/dL Calcium 10.0 (8.4-10.2) mg/dL Total Bilirubin 1.2 H (0.0-1.0) mg/dL AST 32 H (5-31) U/L ALT 58 H (0-31) U/L Alkaline Phosphatase 95 (39-117) U/L Troponin I High Sens < 2.7 (<3.5-17.0) ng/L B-Natriuretic Peptide < 10 (<100) pg/mL Total Protein 7.5 (6.5-8.0) g/dL Albumin 4.7 (3.5-5.0) g/dL 10/11/24 10/11/24 Range/Units 13:23 14:43 WBC (4.8-10.8) X10*3/uL RBC (4.20-5.50) X10*6/uL Hgb (12.0-16.0) g/dl Hct (37.0-47.0) % MCV (80.0-98.0) fL MCH (27.0-33.0) pg MCHC (31.0-35.0) g/dl RDW (11.0-16.0) % Plt Count (160-400) X10*3/uL MPV (9.4-12.3) fL Immature Gran % (Auto) (0.0-0.4) % Neut % (Auto) (45-73) % Lymph % (Auto) (20-40) % Hunt % (Auto) (2-11) % Eos % (Auto) (0-4) % Baso % (Auto) (0-2) % Lymph # (Auto) (1.2-4.9) X10*3/uL Hunt # (Auto) (0.1-1.2) X10*3/uL Eos # (Auto) (0.0-0.4) X10*3/uL Baso # (Auto) (0.0-0.2) X10*3/uL Abs Immat Gran (auto) (0.00-0.03) X10*3/uL Absolute Neuts (auto) (2.0-8.3) x10*3/uL Absolute Nucleated RBC (0.0-0.012) X10*3/uL Nucleated RBC % (auto) (0.0-0.2) /100WBC PT (10.9-12.4) SEC INR (0.9-1.1) APTT 30.2 (26.0-36.8) SEC Sodium (135-145) mmol/L Potassium (3.3-5.1) mmol/L Chloride (96-108) mmol/L Carbon Dioxide (22-29) mmol/L Anion Gap (12-20) BUN (9-16) mg/dL Creatinine (0.5-1.4) mg/dL Estim Creat Clear Calc Estimated GFR Random Glucose (60-115) mg/dL Calcium (8.4-10.2) mg/dL Total Bilirubin (0.0-1.0) mg/dL AST (5-31) U/L ALT (0-31) U/L Alkaline Phosphatase (39-117) U/L Troponin I High Sens 4.4 D (<3.5-17.0) ng/L B-Natriuretic Peptide (<100) pg/mL Total Protein (6.5-8.0) g/dL Albumin (3.5-5.0) g/dL Independent Interpretation I performed an independent interpretation of an: EKG Interpretation: my independent interpretation of the patient's 12 EKG : EKG 1: 08:43 hours so sinus bradycardia with a rate of 56, prolonged HI interval of 220 milliseconds consistent with a first-degree AV block, prolonged QRS of 100 milliseconds with a normal QTC of 430 milliseconds, no ST segment elevation, no ST segment depression, no PACs, no PVCs, Q-wave in lead 3. EKG 2: 09:28 Sinus bradycardia rate of 50, first-degree AV block with a HI interval of 212 milliseconds, normal QRS and QTC interval, no ST segment elevation, no ST segment depression, nonspecific T-wave flattening, Q-wave in lead 3 and AVF - Q-wave in AVF is probably secondary to lead placement EKG 3.: 15:49 sinus bradycardia rate of 48 with a first-degree AV block with a HI interval of 228 milliseconds, normal QRS and QTC interval, no ST segment elevation, no ST segment depression, Q-wave in lead 3 and AVF, flattened T-waves similar to EKG 2. No evidence for acute STEMI Independent Historian Clinical information obtained from an independent historian. History obtained from or confirmed by: Spouse External Record Review External record reviewed: Office record Chronic Conditions Patient?s care impacted by: Hypertension and Other ( hyperlipidemia) Critical Care Time Critical Care Time Critical Care Time: Yes Total Critical Care Time: 60 Attestation: Critical Care: The patient was critically ill with a high probability of imminent or life threatening deterioration. I spent greater than 30 minutes of discontinuous time evaluating the patient,delivering critical care at the bedside, discussing and evaluating pertinent data with consultants. Critical care time does not include time spent performing separately billable procedures or teaching. Total time spent performing critical care was 60 minutes. Discharge Plan Discharge Clinical Impression: Unstable angina Patient Disposition: [facility] Transfer Details: [facility], accepting attending Dr. Emeterio Lewis Prescriptions: No Action atenolol 50 mg tablet 50 mg PO DAILY Qty: 90 2RF betamethasone valerate 0.12 % foam 1 appl topical BID Qty: 100 10RF hydroxyzine HCl 25 mg tablet 25 mg PO BEDTIME PRN (Reason: insomnia) Qty: 60 1RF Rx Instructions: 1-2 tabs at bedtime as needed insomnia levothyroxine 150 mcg tablet 150 mcg PO DAILY rosuvastatin 20 mg tablet 20 mg PO BEDTIME multivitamin Tablet 1 tab PO DAILY aspirin [Adult Aspirin Regimen] 81 mg tablet,delayed release (DR/EC) 81 mg PO DAILY naltrexone 50 mg tablet 50 mg PO DAILY 30 Days Qty: 30 5RF thiamine HCl (vitamin B1) 100 mg capsule 100 mg PO DAILY 30 Days Qty: 30 5RF Print Language: Polish
[2024-10-11 08:56] LABS: MANUAL DIFF FLAG NO
[2024-10-11 08:58] LABS: Basophils Absolute Auto 0.1 X10*3/uL (0.0-0.2); Basophils Percent Auto 0.8 % (0-2); Eosinophils Absolute Auto 0.1 X10*3/uL (0.0-0.4); Hematocrit 43.6 % (37.0-47.0); Hemoglobin 14.6 g/dl (12.0-16.0); Imm Gran Abs Auto 0.02 X10*3/uL (0.00-0.03); Imm Gran Pct Auto 0.3 % (0.0-0.4); Lymphocytes Percent Auto 33.3 % (20-40); Mean Corpuscular HGB Conc 33.5 g/dl (31.0-35.0); Mean Corpuscular Volume 92.6 fL (80.0-98.0); Monocytes Absolute Auto 0.5 X10*3/uL (0.1-1.2); Monocytes Percent Auto 8.7 % (2-11); Neutrophils Absolute Auto 3.4 x10*3/uL (2.0-8.3); Neutrophils Percent Auto 55.9 % (45-73); Platelet Count 229 X10*3/uL (160-400); Red Blood Count 4.71 X10*6/uL (4.20-5.50); White Blood Count 6.1 X10*3/uL (4.8-10.8)
[2024-10-11 09:14] LABS: Prothrombin Time 10.9 SEC (10.9-12.4)
--- NOTE | 2024-10-11 09:18 | ECG_ITS ---
Test Reason : CHEST PAIN Blood Pressure : */* mmHG Vent. Rate : 50 BPM Atrial Rate : 50 BPM P-R Int : 212 ms QRS Dur : 94 ms QT Int : 344 ms P-R-T Axes : 51 -13 49 degrees QTcB Int : 313 ms Sinus bradycardia with 1st degree A-V block Inferior infarct , age undetermined Possible Anterior infarct , age undetermined Abnormal ECG When compared with ECG of 11-Oct-2024 08:43, No significant changes seen Referred By: Bipin Santana Electronically Signed By: SANTIAGO CHRISTINE
[2024-10-11 09:27] LABS: Troponin-I High Sensitivity < 2.7 ng/L (<3.5-17.0)
[2024-10-11 09:31] LABS: Albumin Level 4.7 g/dL (3.5-5.0); Alkaline Phosphatase 95 U/L (39-117); Anion Gap 13 (12-20); Aspartate Amino Transferase 32 U/L (5-31); Bilirubin Total 1.2 mg/dL (0.0-1.0); Blood Urea Nitrogen 19 mg/dL (9-16); Carbon Dioxide 27 mmol/L (22-29); Chloride 105 mmol/L (96-108); Creatinine Clr Calc Pharmacy 64.4; Estimated Glomerular Filt Rate > 60; Glucose Random 135 mg/dL (60-115); Potassium 3.8 mmol/L (3.3-5.1); Sodium 141 mmol/L (135-145); Total Protein 7.5 g/dL (6.5-8.0)
[2024-10-11 09:45] LABS: Alanine Aminotransferase 58 U/L (0-31)
[2024-10-11] MEDS: Aspirin 81 MG TAB.CHEW 243 MG PO (09:45)
[2024-10-11] MEDS: Nitroglycerin 0.4 MG TAB.SUBL SUBLINGUAL ×3 (09:48→10:05)
[2024-10-11] MEDS: 0.9 % Sodium Chloride 1,000 ML 125 ML IVCONT (09:50)
--- NOTE | 2024-10-11 09:54 | PC.NURSE ---
Pt to ED 8 from triage. C/O CP 11/17 radiating to left shoulder since 0700. A/O x 3, ambulatory. Calm and cooperative. #20 placed to left AC. ASA, nitro and IVF per MAR
--- NOTE | 2024-10-11 10:11 | PC.NURSE ---
Addendum entered by Felicia Zavala RN 10/11/24 10:17: Pt reports pain level 1/10 after third dose of nitro and states feeling a little better . BP 96/51 HR 52. MD notified, plan of care ongoing. Original Note: Third dose of nitro admin, pt reports chest pain decreased to 3/10. BP 108/58, HR 51
--- NOTE | 2024-10-11 10:31 | PC.NURSE ---
patient noted to become slowly hypotensive, patient states her chest pain is now 1/10, patient asymptomatic to hypotension. ED provider notified and requested fluids to be bolused, now running 999ml/hr on pump.
--- NOTE | 2024-10-11 11:40 | ECG_ITS ---
Test Reason : BRADYCARDIA Blood Pressure : */* mmHG Vent. Rate : 41 BPM Atrial Rate : 41 BPM P-R Int : 206 ms QRS Dur : 102 ms QT Int : 494 ms P-R-T Axes : 19 -7 94 degrees QTcB Int : 407 ms Marked sinus bradycardia Minimal voltage criteria for LVH, may be normal variant ( Sam product ) Inferior infarct (cited on or before 11-Oct-2024) T wave abnormality, consider lateral ischemia Abnormal ECG When compared with ECG of 11-Oct-2024 09:28, QT has lengthened Referred By: Bipin Santana Electronically Signed By: SANTIAGO CHRISTINE
[2024-10-11] MEDS: fentaNYL citrate/PF 100 MCG/2 ML VIAL 25 MCG IVPUSH (11:46)
[2024-10-11 11:50] LABS: B Type Natriuretic Peptide < 10 pg/mL (<100)
[2024-10-11 14:02] LABS: Troponin-I High Sensitivity 4.4 ng/L (<3.5-17.0)
--- NOTE | 2024-10-11 14:15 | PC.NURSE ---
patient weighed with bed scale
[2024-10-11 14:55] LABS: Partial Thromboplastin Time 30.2 SEC (26.0-36.8)
[2024-10-11] MEDS: Nitroglycerin 2 % Oint 1 GM Packet 1 INCH TRANSDERMA (15:05)
[2024-10-11] MEDS: Heparin Sodium,Porcine 5,000 UNIT/ML VIAL 4000 UNIT IVPUSH (15:07)
[2024-10-11] MEDS: Heparin Sodium,Porcine/1/2NS 25,000 UNIT/250 ML IV.SOLN 8.35 UNIT IVCONT (15:12)
--- NOTE | 2024-10-11 15:47 | ECG_ITS ---
Test Reason : BRADYCARDIC Blood Pressure : */* mmHG Vent. Rate : 44 BPM Atrial Rate : 44 BPM P-R Int : 228 ms QRS Dur : 88 ms QT Int : 482 ms P-R-T Axes : 14 -8 36 degrees QTcB Int : 412 ms Marked sinus bradycardia with 1st degree A-V block Inferior infarct (cited on or before 11-Oct-2024) Abnormal ECG When compared with ECG of 11-Oct-2024 11:51, No significant change was found Referred By: Bipin Santana Electronically Signed By: SANTIAGO CHRISTINE
[2024-10-11] MEDS: Atorvastatin Calcium 80 MG TABLET PO (16:22)
--- NOTE | 2024-10-11 19:23 | PC.NURSE ---
assumed care of pt, assessed heparin, heparin running correctly. Pt ambulated to bathroom with no issues.
--- NOTE | 2024-10-11 19:37 | MHC.EDTECH ---
ambulated pt to the bathroom
[2024-10-11 20:59] LABS: PTT Heparin Drip 75.9 SEC (53-77.9)
--- NOTE | 2024-10-11 21:05 | PC.NURSE ---
based on current PTT, heparin dose unchanged. Will redraw at 0300
--- NOTE | 2024-10-11 21:07 | PC.NURSE ---
attempted to call RN for report at [facility], RN is currently busy, call back number given, will await call from RN
--- NOTE | 2024-10-11 21:39 | PC.NURSE ---
report given to Leilani MARKHAM at [facility]
--- NOTE | 2024-10-11 21:47 | PC.NURSE ---
report given to ems at bedside
== END 2024-10-11 21:58 | disposition short-term general hospital (02) ==
PROVIDERS: Emergency Medicine Emergency Medical Services; Emergency Provider Emergency Medicine; PCP Nurse Practitioner Family
DX: I20.0 Unstable angina (principal); R07.9 Chest pain, unspecified; I44.0 Atrioventricular block, first degree; R00.1 Bradycardia, unspecified; R06.09 Other forms of dyspnea; I10 Essential (primary) hypertension; E78.5 Hyperlipidemia, unspecified; E03.9 Hypothyroidism, unspecified; Z79.82 Long term (current) use of aspirin; Z79.02 Long term (current) use of antithrombotics/antiplatelets
CPT/HCPCS: 36415; 80053; 83880; 84484; 85025; 85610; 85730; 93005; 96365; 96366; 96375; 99285; J1644; J3010

== ENCOUNTER → 2024-10-11 08:43 | Outpatient (BNV) | payer BC, SELFPAY | PROVIDERS: Emergency Provider Emergency Medicine; PCP Nurse Practitioner Family; Visit Provider Internal Medicine | DX: I44.0 Atrioventricular block, first degree (principal); R00.1 Bradycardia, unspecified; I25.2 Old myocardial infarction | CPT/HCPCS: 93010 ==

== ENCOUNTER → 2024-10-12 23:59 | Outpatient (BNV) | payer BC, SELFPAY | PROVIDERS: PCP Nurse Practitioner Family; Visit Provider Internal Medicine Cardiovascular Disease | DX: I20.0 Unstable angina (principal) | CPT/HCPCS: 92928; 92978; 93458; 99152 ==

== ENCOUNTER 2024-10-20 07:04 | Outpatient (AMB) | payer BC, SELFPAY ==
--- NOTE | 2024-10-20 07:07 | MHC.PC.OV ---
Vital Signs 10/20/24 07:10 Height 5 ft 1 in Weight 144 lb 4 oz BMI 27.3 BP 132/72 Blood Pressure Location Lt brachial Position Sitting Respiration 12 Pulse 60 Pulse Source Pulse Oximeter Temp 97.5 F Temp Source Oral Pulse Oximetry (%) 99 Oxygen Delivery Method Room Air Intake Visit Reasons: Discharge Follow-Up /[facility] Intake Note: Discharge follow up Electronic Intelligence Officer Required: No Allergies No Known Allergies Allergy (Mild, Verified 10/20/24 07:07) NONE Medication List - Last Reconciled 10/20/24 by FLACO RoblesP- aspirin (Adult Aspirin Regimen) 81 mg PO DAILY betamethasone valerate 0.12% 1 appl topical BID hydroxyzine HCl 25 mg PO BEDTIME PRN levothyroxine 150 mcg PO DAILY multivitamin 1 tab PO DAILY naltrexone 50 mg PO DAILY 30 days rosuvastatin 20 mg PO BEDTIME thiamine HCl (vitamin B1) 100 mg PO DAILY 30 days ticagrelor mg PO Tobacco use date assessed: 10/20/24 Dental Screening Dental Screen Date: 10/20/24 Did you have a dental visit in the last 12 months?: Yes Did you have a dental problem in the last 6 months where you did not have access to dental care?: No Was dental information given to patient?: Patient has dentist HPI HPI Comments History of Present Illness Details 59 y/o f with hypothyroidism, hyperlipidemia, hypertension, scoliosis, mild mitral regurgitation, large patent PFO, atrial septal aneurysm, complex renal cyst R, vitamin-D deficiency, 5 mm hyperechoic avascular lesion adjacent to the gallbladder fossa noted on ultrasound of the abdomen 09/18/2023 (likely hemangioma), alcohol use disorder, menopause, scalp psoriasis, uterine fibroids, right ovarian cysts Status post tubal ligation 2001 Here today for a Transitional Care Management Visit Discharge summary reviewed. Admitted for unstable angina. NAV placed to mid LAD; noted to be bradycardic, atenolol was stopped; Echo performed. LDL 82 a1c 5.7% at time of d/c. CMP, CBC stable. Trop flat. DC home w/ Cardiac rehab and f/u with [facility] Cards. Rosuvastatin was changed to Atorvastatin. Echo: Cath: Lesion mid LAD 80% stenosis, culprit lesion, Distal right coronary artery 70% stenosis, Admission Date: 10/11/24 to [facility] ED - transferred to [facility] Discharge Date: 10/13/24 Hospital: [place] [facility] Date of interactive contact with Nurse Navigator: as documented in chart Pending diagnostic tests/treatments: Pending consults: DME: PT/OT/ALUMINUM POOL INSTALLER: Home Health Aide/SUPERVISOR [employer]: Community Resources: Asst Living: Home Health: Hospice: Support group: Other: Referrals: Medications reconciled & updated. During todays TCM visit, the d/c summary was reviewed, along with the need for or follow-up on pending diagnostic tests and treatments, as necessary interaction with other health care associate who will assume or reassume care of the beneficiary?s system-specific problems was done or is being worked on, education was provided to the beneficiary, family, guardian, and/or caregiver, referrals to establish or re-establish and arrange needed community resources we completed, assistance in scheduling required follow-up with community providers and services & finally updated medication list given to patient/caregiver The patient is a 59-year-old female presenting with hospital discharge follow-up for unstable angina. - Unstable angina led to hospital admission. - Coronary catheterization showed stenosis. - Drug-eluting stent placed in left anterior descending artery. - Medications adjusted after intervention: includes antiplatelets and atorvastatin (with past intolerances noted). - Slight exertional dyspnea and mild post-procedural chest discomfort were initially present. - The patient adopts a Mediterranean diet with significant lifestyle adaptations. - Maintains a structured walking regimen, mindful of cardiac stress limitations. - Patient history: positive for hypertension, PFO, and alcohol use disorder (current remission). Review of Systems - Cardiovascular: Reports previous chest pain, currently absent; reports occasional shortness of breath on exertion; denies current chest pain or palpitations. - Respiratory: Denies cough or wheezing. - Gastrointestinal: Denies nausea or vomiting; reports past gassiness improved with diet. - Neurological: Denies weakness, dizziness, or syncope. - Musculoskeletal: Denies leg swelling or joint pain. - General: Denies fever or chills; reports weight change with dietary modification. - Psychological: Reports stress managed; denies insomnia. Physical Exam General: Well developed, well nourished, in no acute distress. Appears stated age. Head: Normocephalic, atraumatic. Eyes: Pupils are equal, round and reactive to light and accommodation. Conjunctivae are clear. Vision grossly normal. Lungs: Clear to auscultation bilaterally. No rales, rhonchi or wheeze noted. Good air flow in all hamm. Heart: Regular rate and rhythm. 2/6 systolic murmur,no click, rubs or gallops are noted. . Pulses: Peripheral pulses are equal and palpable bilaterally. Extremities: No clubbing, cyanosis nor edema is noted. Neurologic: Gait and station normal. Cranial Nerves 2-12 intact. Motor strength grossly symmetrical and intact. No sensory loss. Balance normal. Skin: No rashes, ulcers, or lesions noted. Turgor is good. Skin color is good. Hair and nails are without abnormalities. scattered moles on trunk and ext Psych: Normal eye contact, affect and mood appropriate, and normal interactions. Patient is alert and appropriate to context. Discussion Notes During the visit, I reviewed the patient's recent stress test findings and coronary intervention details, explaining that the primary lesion was successfully addressed with stent placement while secondary stenosis is under conservative management currently. We emphasized adherence to the dual antiplatelet regimen and necessary modification of her lipid-lowering therapy back to rosuvastatin due to past tolerability issues with atorvastatin. I highlighted the importance of ongoing lifestyle changes, including the Mediterranean diet and managed physical activity levels. Potential interactions with medications and the need for careful home monitoring, especially in instances of symptom reoccurrence, were discussed. The patient was informed about the usage and purpose of nitroglycerin in the event of recurring angina and provided guidance on storing it appropriately. Future consultations with cardiology for potential alterations in her management plan were outlined. We also discussed follow-ups for cardiac rehabilitation and the importance of maintaining communication regarding any persisting or emergent issues. Assessment and Plan 1. Coronary artery disease - Continue antiplatelets: ticagrelor for 12 months, aspirin indef. - Switch from atorvastatin to rosuvastatin 20 mg as Ator 80 mg caused significant elevation of LFTS in the past. - Cardiopulmonary rehab referral pending. - Maintain Mediterranean diet, safe physical routine. - FU with Cards at [facility] as scheduled 2. Unstable angina - Use nitroglycerin PRN for chest pain. - Monitor for symptom recurrence. 3. Essential hypertension/Asx bradycardia - Atenolol stopped upon dc, Will hold off on adding BB at this time, defer to Cards - monitor BP/P at home. 4. Hyperlipidemia - Resume rosuvastatin, reinforce dietary control. 5. History of patent foramen ovale Cont ASA 6. Alcohol use disorder - Maintain sobriety plan with Vitamin B1 and naltrexone. 69 days sober!! Nice work! Patient Instructions - Continue taking ticagrelor and aspirin as prescribed to prevent clotting. - Start taking rosuvastatin and stop atorvastatin based on prior experiences. - Keep nitroglycerin with you for chest pain. Take only as instructed if chest pain occurs. - Follow a Mediterranean diet and minimize intake of alcohol. - Walk at a gentle pace around the neighborhood, but don?t overexert yourself. - Monitor your blood pressure/pulse at home. Write down your readings. - Call cardiac rehab if you don't hear from them soon. - Follow up with cardiology on the for future treatment decisions. RTO as scheduled in Jan, sooner PRN Consent Patient was informed and verbally consented to the use of an ambient scribe for clinic note documentation during this visit. Total time spent caring for the patient today was 45minutes. This includes time spent before the visit reviewing the chart, time spent during the visit, and time spent after the visit on documentation, reviewing laboratory results, diagnostic imaging, medications, performing a medically necessary evaluation, counseling on diagnoses, care coordination, ordering appropriate tests, ordering appropriate medications, review of tests performed by other providers, reporting test results with the patient, communication with other healthcare providers. [facility] Medical History (Updated 10/20/24 @ 07:52 by Le Newsome, [facility]) Abnormal stress test Elevated LFTs High cholesterol Hypertension Liver lesion Scoliosis Surgical History (Updated 10/19/24 @ 08:07 by Le Newsome [facility]) H/O heart artery stent (~10/2024) History of colonoscopy (~2017) History of tubal ligation History of wisdom tooth extraction Family History Father High cholesterol HTN (hypertension) CVD (cardiovascular disease) Mother Breast cancer Colon cancer Hyperlipidemia Paternal Grandfather Colon cancer Paternal Grandmother No problems noted. Social History Household Members: Spouse Housing: House Are you a primary caretaker grounds to a significant other at home: No Do you presently have visiting nurse or other home services: No 75 years or older and lives alone: No Alcohol intake: former Patient Tobacco Use Status: Never used Tobacco e-Cigarette/Vaping Use: Never Used service: No Current occupational status: employed Current occupation: [employer] Cognitive needs: No Hearing needs: No Vision needs: Yes (wear glasses) Questionnaire Thrive Questionnaire Date Thrive assessed: 07/08/24 I am a: Patient What is your living situation today?: I have a steady place to live Within the past 12 months, did the food you bought not last and you didn't have the money to get more?: Never true Within the past 12 months, did you worry whether your food would run out before you got money to buy more?: Never true Do you have trouble paying for medicines?: No Do you have trouble getting transportation to medical appointments?: No Do you have trouble paying your heating and electricity bill?: No Do you have trouble taking care of your child, family member or friend?: No Do you have trouble with day-to-day activities such as bathing, preparing meals, shopping, managing finances, etc.?: No Are you currently unemployed and looking for a job?: No Are you interested in more education?: No Please select the resources that you would like help with: None Currently or been in a relationship where the following occur: No concerns reported THRIVE Score: 0 ELISSA-7 AMB Questionnaire ELISSA-7 Date ELISSA - 7 assessed: 07/15/24 Source: Developed by Drs. Hoang Brunson, Nita De La Cruz, Cecil Yuan and colleagues, with an educational elaine from [employer]. Physical exam (Primary Care) Vital Signs: Last Vital Signs Temp 97.5 F 10/20/24 07:10 Pulse 60 10/20/24 07:10 Resp 12 10/20/24 07:10 BP 132/72 10/20/24 07:10 Pulse Ox 99 10/20/24 07:10 Oxygen Delivery Method Room Air 10/20/24 07:10 BMI result Body Mass Index 27.3 Tobacco/Smoking Status: Tobacco use Status Tobacco use date assessed 10/20/24 10/20/24 07:10 Patient Tobacco Use Status Never used Tobacco 10/20/24 07:07 e-Cigarette/Vaping Use Never Used 10/20/24 07:07 Thrive Assessment: Date of Thrive Assessment Date Thrive assessed 07/08/24 10/20/24 07:07 Currently or been in a relationship where the following occur: No concerns reported Coding Level of Care Code TCM High MDM <= 7 Days Complex EM visit Add On G2211 Diagnoses Hospital discharge follow-up Z09 Unstable angina pectoris due to coronary arteriosclerosis I25.110 Primary hypertension I10 Hypertension type: primary hypertension Mixed hyperlipidemia E78.2 Hyperlipidemia type: mixed hyperlipidemia Alcohol use disorder, mild, in early remission F10.11 PFO with atrial septal aneurysm Q21.12; I25.3 Assessment & Plan Assessment & Plan (1) Hospital discharge follow-up: Code(s): Z09 - Encounter for follow-up examination after completed treatment for conditions other than malignant neoplasm (2) Unstable angina pectoris due to coronary arteriosclerosis: Code(s): I25.110 - Atherosclerotic heart disease of [place] coronary artery with unstable angina pectoris Category: Medical (3) Hypertension: Code(s): I10 - Essential (primary) hypertension Category: Medical Qualifiers: Hypertension type: primary hypertension Qualified Code(s): I10 - Essential (primary) hypertension (4) Hyperlipidemia: Code(s): E78.5 - Hyperlipidemia, unspecified Category: Medical Qualifiers: Hyperlipidemia type: mixed hyperlipidemia Qualified Code(s): E78.2 - Mixed hyperlipidemia (5) Alcohol use disorder, mild, in early remission: Comment: 69 days sober!!! Code(s): F10.11 - Alcohol abuse, in remission Category: Medical (6) PFO with atrial septal aneurysm: Code(s): Q21.12 - Patent foramen ovale; I25.3 - Aneurysm of heart Category: Medical Plan . Medications: New nitroglycerin do not exceed 3 doses per episode 0.3 mg sublingual Q5M PRN 90 tabs 0RF chest pain rosuvastatin 20 mg PO BEDTIME 90 tabs 2RF
[2024-10-20 07:10] VITALS: BP 132/72; PULSE 60; RESP 12; TEMP 36.4; O2SAT 99; BMI 27.3
== END 2024-10-20 09:27 | disposition home or self-care (01) ==
LOC: HO.HMCFM 07:05
PROVIDERS: PCP Nurse Practitioner Family; Visit Provider Nurse Practitioner Family
DX: I25.110 Atherosclerotic heart disease of native coronary artery with unstable angina pectoris (principal); Z09 Encounter for follow-up examination after completed treatment for conditions other than malignant neoplasm; I10 Essential (primary) hypertension; E78.2 Mixed hyperlipidemia; F10.11 Alcohol abuse, in remission; Q21.12 Patent foramen ovale; I25.3 Aneurysm of heart

== ENCOUNTER → 2024-10-20 07:04 | Outpatient (BNVA) | payer BC, SELFPAY | PROVIDERS: PCP Nurse Practitioner Family; Visit Provider Nurse Practitioner Family ==

== ENCOUNTER 2024-11-01 10:12 | Outpatient (AMB) | payer BC, SELFPAY ==
[2024-11-01 10:29] VITALS: BP 134/72; PULSE 58; BMI 27.5
--- NOTE | 2024-11-01 10:29 | A.OFFVIS_ITS ---
Vital Signs 11/01/24 10:29 Height 5 ft 1 in Weight 145 lb 8.081 oz BMI 27.5 BP 134/72 Blood Pressure Location Lt brachial Position Sitting Pulse 58 Pulse Source Pulse Oximeter Intake Visit Reasons: 2 wk s/p cath KM Attending Urologist Required: No Allergies No Known Allergies Allergy (Mild, Verified 11/01/24 10:31) NONE Medication List - Last Reconciled 11/01/24 by Shawnee Bardales, KRISTI-C aspirin (Adult Aspirin Regimen) 81 mg PO DAILY betamethasone valerate 0.12% 1 appl topical BID levothyroxine 150 mcg PO DAILY multivitamin 1 tab PO DAILY naltrexone 50 mg PO DAILY 30 days nitroglycerin 0.3 mg sublingual Q5M PRN rosuvastatin 20 mg PO BEDTIME thiamine HCl (vitamin B1) 100 mg PO DAILY 30 days ticagrelor mg PO HPI HPI 2 wk s/p cath KM: Details: Licha is a 59-year-old female with past medical history of hypertension, hyperlipidemia, who reported increasing shortness of breath with activity. She had a nuclear stress test which was abnormal. She then had increasing symptoms and underwent cardiac catheterization on 10/12/2024 showing mid LAD 80% stenosis, NAV was placed. She had residual distal RCA stenosis. She now presents for follow-up. Today she reports that she has been doing well since her procedure. Her right radial catheterization site is feeling good. She continues to have shortness of breath with exertion but has been trying to limit her activity to only walking. She is back to work and tolerating it well. She has never had chest discomfort at rest or with activity. No heart palpitations, lightheadedness, presyncope, syncope. Taking meds as directed. No bleeding issues reported. [facility] Medical History Abnormal stress test Elevated LFTs Liver lesion Scoliosis High cholesterol Hypertension Surgical History H/O heart artery stent (~10/2024) History of colonoscopy (~2017) History of wisdom tooth extraction History of tubal ligation Family History Father High cholesterol HTN (hypertension) CVD (cardiovascular disease) Mother Breast cancer Colon cancer Hyperlipidemia Paternal Grandfather Colon cancer Paternal Grandmother No problems noted. Social History Household Members: Spouse Housing: House Are you a primary residential child care counselor to a significant other at home: No Do you presently have visiting nurse or other home services: No 75 years or older and lives alone: No Alcohol intake: former Patient Tobacco Use Status: Never used Tobacco e-Cigarette/Vaping Use: Never Used service: No Current occupational status: employed Current occupation[place] [employer] [place] Cognitive needs: No Hearing needs: No Vision needs: Yes (wear glasses) Review of Systems Const All systems reviewed & are unremarkable except as noted in HPI and below ENT Denies dizziness Card Denies chest pain, Denies chest pain at rest, Denies chest pain with activity, Denies rapid heart rate, Denies pedal edema, Denies edema, Denies leg edema, Denies lightheadedness, Denies palpitations, Denies dyspnea, Reports dyspnea on exertion and Denies orthopnea Resp Denies cough, Denies dyspnea and Reports dyspnea on exertion GI Denies hematochezia and Denies change in stool character Musc Denies abnormal gait, Denies limited range of motion, Denies muscle cramps, Denies muscle weakness, Denies numbness, Denies radiating pain into limb, Denies stiffness and Denies tingling Neuro Denies abnormal gait, Denies dizziness, Denies numbness and Denies tingling Endo Denies palpitations Physical Exam Vital Signs: Last Vital Signs Pulse 58 11/01/24 10:29 BP 134/72 11/01/24 10:29 BMI result Body Mass Index 27.5 Const General: cooperative, healthy appearing, comfortable and no acute distress Orientation/consciousness: patient oriented x3 Neck Neck: Yes normal visual inspection and Yes no JVD Resp Effort & Inspection: normal respiratory effort Auscultation: clear to auscultation bilaterally, no rales, no rhonchi and no wheezes Cardio Rate: regular rate Rhythm: regular rhythm Heart sounds: S1 normal heart sound present, S2 normal heart sound present, no gallops, no murmurs and no rubs Neuro General: patient oriented x3 Extrem Other: right radial cath site well healed, easily palpable radial pulse, normal right hand assessment General: Yes normal to inspection, No no pedal edema and No calf tenderness Psych Appearance: grossly normal Mental Status: mental status grossly normal Speech and movement: Normal speech and movement present Assessment & Plan Assessment & Plan (1) SPENCER (dyspnea on exertion): Code(s): R06.09 - Other forms of dyspnea Category: Medical Plan: Reports of shortness of breath with exertional activities newer in the last few months. Nuclear stress test was done 09/28/2024, equivocal for ischemia in the distal anterior and apical wall in the mid to distal LAD territory. On 10/11/2024 she presented to [facility] with increased symptoms and was thought to have unstable angina. She was transferred to [facility] for cardiac catheterization showing mid LAD 80% stenosis and NAV was placed. She does have residual 70% distal RCA stenosis currently being managed medically. Echocardiogram 10/13/2024 shows EF 55-60%, no regional wall motion abnormality RV systolic function borderline reduced. She continues to have shortness of breath with activity. She does not appear fluid overloaded on examination. Will review case with Dr. Melendez. Diagnosis of CAD and stent placement reviewed with her in detail. Continue aspirin indefinitely. Continue Brilinta uninterrupted for 1 year. Continue rosuvastatin with ideal LDL goal less than 70. Start cardiac rehab. Cardiology follow-up in 3 months, sooner if needed. (2) Unstable angina pectoris due to coronary arteriosclerosis: Code(s): I25.110 - Atherosclerotic heart disease of [place] coronary artery with unstable angina pectoris Category: Medical (3) S/P cardiac cath: Comment: 10/12/2024 mid LAD 80% stenosis, NAV placed, distal RCA 70% stenosis Code(s): Z98.890 - Other specified postprocedural states Category: Surgical Plan: Right radial catheterization site well healed (4) Stented coronary artery: Comment: LAD stent 10/12/2024 Code(s): Z95.5 - Presence of coronary angioplasty implant and graft Category: Surgical (5) Hypertension: Code(s): I10 - Essential (primary) hypertension Category: Medical Qualifiers: Hypertension type: primary hypertension Qualified Code(s): I10 - Essential (primary) hypertension Plan: Blood pressure goal less than 130/80. Near goal at this time. No med changes made. (6) Hyperlipidemia: Code(s): E78.5 - Hyperlipidemia, unspecified Category: Medical Qualifiers: Hyperlipidemia type: mixed hyperlipidemia Qualified Code(s): E78.2 - Mixed hyperlipidemia Plan: LDL goal less than 70. Labs done 07/12/2024 showed LDL 143. She believes she was on rosuvastatin 20 mg daily at that time. Will increase rosuvastatin up to 40 mg daily. She has a history of elevated LFTs, more when she was drinking alcohol. Will plan recheck of lipids and liver panel in 6 weeks. Plan Time spent on chart review, documentation, interview and assessment Orders: Orders Liver Panel Today E78.2 - Mixed hyperlipidemia Lipid Panel Today E78.2 - Mixed hyperlipidemia Cardiac Rehab Today Z95.5 - Presence of coronary angioplasty implant and graft, Z98.890 - Other specified postprocedural states Medications: New rosuvastatin dose increased 40 mg PO DAILY 90 tabs 1RF 90 days Discontinued rosuvastatin Discontinued Reason: Doctor's Order 20 mg PO BEDTIME 90 tabs 2RF Coding Level of Care Code Est Pt Level 4 (18376) Complex EM visit Add On G2211 Diagnoses SPENCER (dyspnea on exertion) R06.09 Unstable angina pectoris due to coronary arteriosclerosis I25.110 S/P cardiac cath Z98.890 Stented coronary artery Z95.5 Primary hypertension I10 Hypertension type: primary hypertension Mixed hyperlipidemia E78.2 Hyperlipidemia type: mixed hyperlipidemia Time Spent (min) 30
== END 2024-11-01 11:08 | disposition home or self-care (01) ==
LOC: HO.HCS 10:12
PROVIDERS: PCP Nurse Practitioner Family; Visit Provider Nurse Practitioner Family
DX: R06.09 Other forms of dyspnea (principal); I25.110 Atherosclerotic heart disease of native coronary artery with unstable angina pectoris; Z98.890 Other specified postprocedural states; Z95.5 Presence of coronary angioplasty implant and graft; I10 Essential (primary) hypertension; E78.2 Mixed hyperlipidemia
CPT/HCPCS: 99214

== ENCOUNTER 2024-12-05 15:49 | Emergency (ER) | payer BC, SELFPAY ==
--- NOTE | ~2024-12-05 | XR_ITS ---
CLINICAL HISTORY: pain 1 view chest x-ray Comparison: None provided Findings: The lungs are clear. No effusion or pneumothorax. Heart size is normal. Dextroscoliosis of the thoracic spine present. No acute fracture deformity identified. IMPRESSION: 1. No acute findings. This document has been electronically signed by: Mayank Mcelroy MD on 12/05/2024 19:03:46
--- NOTE | ~2024-12-05 | US_ITS ---
CLINICAL HISTORY: liver, GB, CBD, pain US abdomen limited Comparison: None provided Findings: The liver is normal in size and echotexture. There is no intrahepatic bile duct dilatation. The common duct is 3 mm in diameter. The gallbladder is normal. No stones. No wall thickening. There is no sonographic Coles sign. The main portal vein is antegrade. The right kidney is 15.0 cm in length. No hydronephrosis. Normal cortical thickness. In the lower pole there is a predominantly anechoic cystic structure with an internal septation measuring 6.7 x 6.6 x 6.0 cm. No ascites. IMPRESSION: 1. No abnormality of the liver, gallbladder or common bile duct. 2. Complex septated cystic structure in the lower pole of the right kidney measuring 6.7 cm in diameter. This could be further evaluated with multiphase renal CT or MRI. This document has been electronically signed by: Mayank Mcelroy MD on 12/05/2024 21:12:19
--- NOTE | 2024-12-05 15:51 | ECG_ITS ---
Test Reason : CP Blood Pressure : */* mmHG Vent. Rate : 52 BPM Atrial Rate : 52 BPM P-R Int : 214 ms QRS Dur : 96 ms QT Int : 442 ms P-R-T Axes : 24 -11 34 degrees QTcB Int : 411 ms Sinus bradycardia with 1st degree A-V block Possible Anterior infarct , age undetermined Abnormal ECG When compared with ECG of 11-Oct-2024 15:49, Nonspecific T wave abnormality no longer evident in Lateral leads Referred By: Payton Sorto Electronically Signed By: ROBERTA PEREZ MD
--- NOTE | 2024-12-05 16:15 | ED_ITS ---
HPI - General Adult General Chief complaint: Chest Pain Stated complaint: chest pain,sob hx of cardia cath Time Seen by Provider: 12/05/24 18:17 Source: patient Limitations: no limitations History of Present Illness ED Provider: Nydia Post PA-C HPI narrative: 59-year-old female with a history of known coronary artery disease status post cardiac catheterization with stent 1 month ago, hypothyroidism, hyperlipidemia, alcohol use disorder, who presents with right-sided chest pain. Patient states she has had intermittent pain beneath the right lower breast, worse with movement and with taking a deep breath. Denies nausea vomiting or postprandial symptoms. Denies new activity where she could have strained her chest wall. Denies associated diaphoresis shortness of breath. No recent cough cold symptoms or fever. Related Data Home Medications ?Medication ?Instructions ?Recorded ?Confirmed aspirin 81 mg tablet,delayed 81 mg PO DAILY 01/19/24 0 11/01/24 release (Adult Aspirin Regimen) levothyroxine 150 mcg tablet 150 mcg PO DAILY 01/19/24 11/01/24 multivitamin 1 tab PO DAILY 01/19/2410/10 Previous Rx's ?Medication ?Instructions ?Recorded betamethasone valerate 0.12 % 1 appl topical BID #100 grams 07/13/24 topical foam thiamine HCl (vitamin B1) 100 mg 100 mg PO DAILY 30 da ys #30 caps 08/12/24 capsule naltrexone 50 mg tablet 50 mg PO DAILY 30 days #30 t abs 09/09/24 nitroglycerin 0.3 mg sublingual 0.3 mg sublingual Q5M PRN chest 10/20/24 tablet pain #90 tabs rosuvastatin 40 mg tablet 40 mg PO DAILY 90 days #90 t abs 11/01/24 ticagrelor 90 mg tablet 90 mg PO BID #180 tabs 11/10 Allergies Allergy/AdvReac Type Severity Reaction Status Date / Time No Known Allergies Allergy Mild NONE Verified 12/08/24 14:29 Review of Systems 2 Review of Systems: Yes all other systems are reviewed and are negative Constitutional: Constitutional: Denies excessive sweating, Denies fatigue and Denies fever(s) Cardiovascular: Cardiovascular: Reports chest pain and Denies dyspnea Respiratory: Respiratory: Denies cough and Denies dyspnea Gastrointestinal: Gastrointestinal: Denies abdominal pain, Denies nausea and Denies vomiting Musculoskeletal: Musculoskeletal: Denies back pain Endocrine: Endocrine: Denies excessive sweating and Denies fatigue PMFSH Past Medical History Attestation statement: The following information was validated with the patient. Medical History Abnormal stress test Elevated LFTs Liver lesion Scoliosis High cholesterol Hypertension Surgical History H/O heart artery stent (~10/2024) History of colonoscopy (~2017) History of wisdom tooth extraction History of tubal ligation Family History Family History Father High cholesterol HTN (hypertension) CVD (cardiovascular disease) Mother Breast cancer Colon cancer Hyperlipidemia Paternal Grandfather Colon cancer Paternal Grandmother No problems noted. Social History Social History Household Members: Spouse Housing: House Are you a primary small animal caretaker to a significant other at home: No Do you presently have visiting nurse or other home services: No Alcohol intake: former Patient Tobacco Use Status: Never used Tobacco e-Cigarette/Vaping Use: Never Used service: No Current occupational status: employed Current occupation: [employer] Cognitive needs: No Hearing needs: No Vision needs: Yes (wear glasses) Physical Exam ED Vital Signs: Vital Signs - 24 hr 12/05/24 16:16 12/05/24 17:56 12/05/24 20:24 Temperature 97.6 F 98.3 F Pulse Rate 66 51 58 Respiratory Rate 18 16 16 Blood Pressure 152/73 H 145/72 H 132/57 L Pulse Oximetry 98 98 97 Oxygen Delivery Method Room Air Room Air Room Air 12/05/24 22:00 Temperature 98.3 F Pulse Rate 55 Respiratory Rate 16 Blood Pressure 130/58 L Pulse Oximetry 97 Oxygen Delivery Method Room Air BMI result Body Mass Index 27.0 Const Other: Alert well-appearing Orientation/consciousness: patient oriented x3 Resp Effort & Inspection: normal respiratory effort Cardio Other: Normal peripheral perfusion GI Other: Abdomen is soft, nondistended, mild tenderness epigastric and right upper quadrant without guarding Skin Other: Warm dry no rash Neuro General: patient oriented x3, gait normal, no focal motor deficits and CN's II- XI intact bilaterally Psych Other: Cooperative Course Course Course Narrative: This is a rapid medical exam performed by Leena Sorto NP: Additional HPI, ROS, PE not included below will be deferred to primary provider. Patient is a 59-year-old female with history of unstable angina, coronary artery stent 1 mo ago, PFO with atrial septal aneurism, HTN, HLD, hypothyroidism, alcohol use disorder presenting with complaint of chest pain which began at work. Pain worsens under right breast with inspiration. Pain initially 10/10, now 5/10. Plan: EKG, labs Medical Decision Making Medical Decision Making [facility] Narrative: 59-year-old female with a history of known coronary artery disease status post cardiac catheterization with stent 1 month ago, hypothyroidism, hyperlipidemia, alcohol use disorder, who presents with right-sided chest pain. Patient states she has had intermittent pain beneath the right lower breast, worse with movement and with taking a deep breath. Denies nausea vomiting or postprandial symptoms. Denies new activity where she could have strained her chest wall. Denies associated diaphoresis shortness of breath. No recent cough cold symptoms or fever. Problem: Known coronary artery disease, alcohol use disorder History: Per patient I have considered the following differential diagnoses: ACS, PE, biliary colic, cholecystitis, gastritis, pancreatitis Plan: In actuality, the patient is having upper abdominal pain not chest pain. ACS was clearly considered, she has known coronary artery disease, screening labs including cardiac enzymes EKG and chest x-ray were obtained. I we will be obtaining an ultrasound of the right upper quadrant, this could be biliary colic given the distribution. Could also be alcoholic gastritis. I do not feel her symptoms are consistent with PE, she is not tachycardic, she is not hypoxic, she is not short of breath, she has no objective signs symptoms for DVT on exam, deferring a dimer as I do not feel it is clinically warranted. I have independently reviewed the following tests: Labs: No leukocytosis, not anemic, no electrolyte abnormality noted, troponin 4.2 delta troponin 6.3, patient's LFTs are at her baseline EKG: Sinus bradycardia with first-degree AV block, rate of 52, no ischemic changes no ectopy, steady improved since prior study Chest x-ray: Findings: The lungs are clear. No effusion or pneumothorax. Heart size is normal. Dextroscoliosis of the thoracic spine present. No acute fracture deformity identified. IMPRESSION: 1. No acute findings. Ultrasound right upper quadrant, he liver is normal in size and echotexture. There is no intrahepatic bile duct dilatation. The common duct is 3 mm in diameter. The gallbladder is normal. No stones. No wall thickening. There is no sonographic Coles sign. The main portal vein is antegrade. The right kidney is 15.0 cm in length. No hydronephrosis. Normal cortical thickness. In the lower pole there is a predominantly anechoic cystic structure with an internal septation measuring 6.7 x 6.6 x 6.0 cm. No ascites. IMPRESSION: 1. No abnormality of the liver, gallbladder or common bile duct. 2. Complex septated cystic structure in the lower pole of the right kidney measuring 6.7 cm in diameter. This could be further evaluated with multiphase renal CT or MRI. Lab Data 12/05/24 16:32 12/05/24 16:32 Labs: Lab Results 12/05/24 12/05/24 Range/Units 16:32 18:28 WBC 7.7 (4.8-10.8) X10*3/uL RBC 4.28 (4.20-5.50) X10*6/uL Hgb 13.1 (12.0-16.0) g/dl Hct 38.9 (37.0-47.0) % MCV 90.9 (80.0-98.0) fL MCH 30.6 (27.0-33.0) pg MCHC 33.7 (31.0-35.0) g/dl RDW 13.1 (11.0-16.0) % Plt Count 223 (160-400) X10*3/uL MPV 9.4 (9.4-12.3) fL Immature Gran % (Auto) 0.3 (0.0-0.4) % Neut % (Auto) 56.5 (45-73) % Lymph % (Auto) 30.9 (20-40) % [place] % (Auto) 10.0 (2-11) % Eos % (Auto) 1.3 (0-4) % Baso % (Auto) 1.0 (0-2) % Lymph # (Auto) 2.4 (1.2-4.9) X10*3/uL [place] # (Auto) 0.8 (0.1-1.2) X10*3/uL Eos # (Auto) 0.1 (0.0-0.4) X10*3/uL Baso # (Auto) 0.1 (0.0-0.2) X10*3/uL Abs Immat Gran (auto) 0.02 (0.00-0.03) X10*3/uL Absolute Neuts (auto) 4.4 (2.0-8.3) x10*3/uL Absolute Nucleated RBC 0.000 (0.0-0.012) X10*3/uL Nucleated RBC % (auto) 0.0 (0.0-0.2) /100WBC PT 10.5 L (10.9-12.4) SEC INR 0.9 (0.9-1.1) Sodium 144 (135-145) mmol/L Potassium 3.4 (3.3-5.1) mmol/L Chloride 107 (96-108) mmol/L Carbon Dioxide 27 (22-29) mmol/L Anion Gap 13 (12-20) BUN 20 H (9-16) mg/dL Creatinine 0.83 (0.5-1.4) mg/dL Estim Creat Clear Calc 64.4 Estimated GFR > 60 Random Glucose 105 (60-115) mg/dL Calcium 9.7 (8.4-10.2) mg/dL Magnesium 2.3 (1.6-2.6) mg/dL Total Bilirubin 1.2 H (0.0-1.0) mg/dL Direct Bilirubin 0.4 (0.0-0.5) mg/dL AST 67 H (5-31) U/L ALT 155 H (0-31) U/L Alkaline Phosphatase 119 H (39-117) U/L Troponin I High Sens 4.2 6.3 (<3.5-17.0) ng/L B-Natriuretic Peptide < 10 (<100) pg/mL Total Protein 7.0 (6.5-8.0) g/dL Albumin 4.5 (3.5-5.0) g/dL Discharge Plan Discharge Clinical Impression: Acute epigastric pain Patient Disposition: Home, Self-Care Instructions: Epigastric Pain (ED) Additional Instructions: All of your screening labs including 2 cardiac enzymes were within normal limits. There were no concerning changes on the EKG, the chest x-ray is clear. The ultrasound of the upper abdomen was normal as well. We discussed the renal cyst, you were already aware of this pathology. In regard to your upper abdominal pain, we do not have a clear concise answer. Follow up with your primary care provider, call tomorrow to make an appointment. Return precautions for onset of severe constant abdominal pain, intractable nausea vomiting, the development of new symptoms or fever. If you develop any of these symptoms, seek medical attention. Prescriptions: No Action betamethasone valerate 0.12 % foam 1 appl topical BID Qty: 100 10RF ticagrelor 90 mg tablet 90 mg PO BID Qty: 180 1RF levothyroxine 150 mcg tablet 150 mcg PO DAILY multivitamin Tablet 1 tab PO DAILY aspirin [Adult Aspirin Regimen] 81 mg tablet,delayed release (DR/EC) 81 mg PO DAILY naltrexone 50 mg tablet 50 mg PO DAILY 30 Days Qty: 30 5RF thiamine HCl (vitamin B1) 100 mg capsule 100 mg PO DAILY 30 Days Qty: 30 5RF rosuvastatin 40 mg tablet 40 mg PO DAILY 90 Days Qty: 90 1RF Rx Instructions: dose increased nitroglycerin 0.3 mg tablet, sublingual 0.3 mg sublingual Q5M PRN (Reason: chest pain) Qty: 90 0RF Rx Instructions: do not exceed 3 doses per episode Interventions: ED Discharge Assessment Last Done: 12/05/24 22:34 Discharge Date/Time: 12/05/24 22:36 Print Language: Tamazight
[2024-12-05 16:16] VITALS: BP 152/73; PULSE 66; RESP 18; TEMP 36.4; O2SAT 98; BMI 27.0
[2024-12-05 16:38] LABS: MANUAL DIFF FLAG NO
[2024-12-05 16:43] LABS: Hematocrit 38.9 % (37.0-47.0); Hemoglobin 13.1 g/dl (12.0-16.0); Imm Gran Abs Auto 0.02 X10*3/uL (0.00-0.03); Imm Gran Pct Auto 0.3 % (0.0-0.4); Lymphocytes Absolute Auto 2.4 X10*3/uL (1.2-4.9); Mean Corpuscular HGB Conc 33.7 g/dl (31.0-35.0); Mean Corpuscular Hemoglobin 30.6 pg (27.0-33.0); Mean Corpuscular Volume 90.9 fL (80.0-98.0); NRBC Abs Auto 0.000 X10*3/uL (0.0-0.012); NRBC Pct Auto 0.0 /100WBC (0.0-0.2); Platelet Count 223 X10*3/uL (160-400); Red Blood Count 4.28 X10*6/uL (4.20-5.50); White Blood Count 7.7 X10*3/uL (4.8-10.8)
[2024-12-05 16:53] LABS: INTERNATIONAL NORM RATIO 0.9 (0.9-1.1); Prothrombin Time 10.5 SEC (10.9-12.4)
[2024-12-05 16:54] LABS: Alanine Aminotransferase 155 U/L (0-31); Albumin Level 4.5 g/dL (3.5-5.0); Alkaline Phosphatase 119 U/L (39-117); Anion Gap 13 (12-20); Aspartate Amino Transferase 67 U/L (5-31); Blood Urea Nitrogen 20 mg/dL (9-16); Calcium 9.7 mg/dL (8.4-10.2); Carbon Dioxide 27 mmol/L (22-29); Chloride 107 mmol/L (96-108); Creatinine Clr Calc Pharmacy 64.4; Estimated Glomerular Filt Rate > 60; Magnesium 2.3 mg/dL (1.6-2.6); Potassium 3.4 mmol/L (3.3-5.1); Sodium 144 mmol/L (135-145); Total Protein 7.0 g/dL (6.5-8.0)
[2024-12-05 17:00] LABS: B Type Natriuretic Peptide < 10 pg/mL (<100)
[2024-12-05 17:02] LABS: Troponin-I High Sensitivity 4.2 ng/L (<3.5-17.0)
[2024-12-05 17:56] VITALS: BP 145/72; PULSE 51; RESP 16; TEMP 36.8; O2SAT 98
[2024-12-05 18:55] LABS: Troponin-I High Sensitivity 6.3 ng/L (<3.5-17.0)
--- OUTSIDE RECORDS SUMMARY | 2024-12-05 18:55 | XMS_ITS | Encounter Summary ---
Author Organization [facility] Address [address] [facility] [address] [place] [phone] Phone Care Team Providers Care Security Chief Museum Name Role Phone Kelly Narayan MD, MPH Primary Care Provid er Pcp, Unknown Primary Care Provider Unavailabl e Encounter Details Date Type Department Care Team (Late st Contact Info) Description 10/12/2023 Procedure Pass [facility], Ct Scan - [address] [address] Social History Tobacco Use Types Packs/Day Years Used Date Smoking Tobacco: Former Smokeless Tobacco: Never Comments:social smoker until about 10 yrs ago; 1p per year Alcohol Use Standard Drinks/Week Comments Yes 14 (1 standard drink = 0.6 oz pu re alcohol) 2-3 drinks daily Child or Family Care Answer Date Record ed Do you have problems with on e of the following making it difficult for you to work, study, or receive health care? No 06/14/2023 Education Answer Date Recorded Are you interested in help w ith more adult education (for example, completing high school, GED, job training, learning the Croatian language, technical skills, or developing parenting skills)? No 06/14/2023 Are you concerned about learning? Not on file 06/14/2023 No 06/14/2023 Yes 06/14/2023 Food Answer Date Recorded Within the past 6 months we worried whether our food would run out before we got money to buy more. Never True 06/14/2023 Within the past 6 months the food we bought just didn't last and we didn't have enough money to get more. Never True Residential Stability Answer Date Recor ded What is your housing situation today? I have ana cheek 06/14/2023 How many times have you moved in the past 12 thu ths? One time 06/14/2023 Paying for Meds Answer Date Recorded Do you have trouble paying for medicines? No 06/14/2023 Paying Utility Bills Answer Date Record ed Do you have trouble paying your heating or elect ricity bill? No 06/14/2023 Transportation Answer Date Recorded Has the lack of transportati on kept you from medical appointments or from getting medications? No 06/14/2023 Unemployment Answer Date Recorded Are you currently unemployed or working on a part-time or temporary basis, and looking for work? No 01/25/2022 Digital Access Answer Date Recorded No 06/14/2023 Yes 06/14/2023 Do you have reliable internet access at home? Ye s 06/14/2023 Do you have a device (e.g., phone, tablet, computer) with a working camera? Yes 06/14/2023 Intimate Partner Violence Answer Date R ecorded Are you denied basic needs s uch as food, clothing, or medical care? No 06/14/2023 In the past 12 months have y ou been in a relationship with a person who hurts, threatens, or tries to control you? No 06/14/2023 Are you denied basic needs s uch as food, clothing, or medical care? No 06/14/2023 In the past 12 months have y ou been in a relationship with a person who hurts, threatens, or tries to control you? No 06/14/2023 Comments No Sex and Gender Information Value Date Recorded Sex Assigned at Female 07/08/2021 5:09 AM EST Legal Sex Female 4:40 PM EDT Gender Identity Female 07/08/2021 5:09 AM EST Sexual Orientation Straight 12/03/2022 7: 42 AM EDT documented as of this encounter Plan of Treatment Not on file documented as of this encounter Visit Diagnoses Not on filedocumented in this encounter Additional Health Concerns Assessment Noted Time PHQ-2 Depression Total Score: 0 06/14/19 24 6:28 PM EST documented as of this encounter Care Teams Security Chief Museum Relationship Specialty Start Date End Date Kelly Narayan MD, MPH [address] [place] [address] [email or web address] PCP - General Family Medicine 03/29/20 06/16/24 Pcp, Unknown PCP - General 06/17/24 documented as of this encounter Additional Source Comments The information contained in this document represents components of the legal health record. It is not the complete legal health record.[facility]
[2024-12-05 20:24] VITALS: BP 132/57; PULSE 58; RESP 16; O2SAT 97
[2024-12-05 22:00] VITALS: BP 130/58; PULSE 55; RESP 16; TEMP 36.8; O2SAT 97
[2024-12-05 22:34] VITALS: BP 130/58; PULSE 55; RESP 16; TEMP 36.8; O2SAT 97
== END 2024-12-05 22:36 | disposition home or self-care (01) ==
PROVIDERS: Physician Assistant Medical; Registered Nurse Emergency; Emergency Provider Emergency Medicine; PCP Nurse Practitioner Family
DX: R10.13 Epigastric pain (principal); R79.1 Abnormal coagulation profile; I10 Essential (primary) hypertension; E78.5 Hyperlipidemia, unspecified; E03.9 Hypothyroidism, unspecified; Z79.82 Long term (current) use of aspirin; Z79.02 Long term (current) use of antithrombotics/antiplatelets; Z79.899 Other long term (current) drug therapy
CPT/HCPCS: 36415; 71045; 76705; 80053; 82248; 83735; 83880; 84484; 85025; 85610; 93005; 99284

== ENCOUNTER → 2024-12-05 15:51 | Outpatient (BNV) | payer BC, SELFPAY | PROVIDERS: Emergency Provider Emergency Medicine; PCP Nurse Practitioner Family; Visit Provider Internal Medicine Cardiovascular Disease | DX: I44.0 Atrioventricular block, first degree (principal); R00.1 Bradycardia, unspecified | CPT/HCPCS: 93010 ==

== ENCOUNTER → 2024-12-05 18:27 | Outpatient (BNV) | payer BC, SELFPAY | PROVIDERS: PCP Nurse Practitioner Family; Visit Provider Radiology Diagnostic Radiology | DX: N28.1 Cyst of kidney, acquired (principal); R07.9 Chest pain, unspecified | CPT/HCPCS: 71045; 76705 ==

== ENCOUNTER 2024-12-08 14:17 | Outpatient (AMB) | payer BC, SELFPAY ==
[2024-12-08 14:29] VITALS: BP 126/68; PULSE 74
--- NOTE | 2024-12-08 14:29 | MHC.OFFVIS ---
Vital Signs 12/08/24 14:29 Weight 145 lb BP 126/68 Pulse 74 Intake Visit Reasons: mat Allergies No Known Allergies Allergy (Mild, Verified 12/08/24 14:29) NONE HPI Comments Details: The patient is a 59-year-old female presents for a follow-up visit r/t AUD. Reports doing well and feeling stable on naltrexone, denies alcohol use, opiates, or other substances including smoking. The patient wants to stop taking the naltrexone and is optimistic she can continue sobriety without the use of a medication. [facility] Medical History Abnormal stress test Elevated LFTs Liver lesion Scoliosis High cholesterol Hypertension Surgical History H/O heart artery stent (~10/2024) History of colonoscopy (~2017) History of wisdom tooth extraction History of tubal ligation Family History Father High cholesterol HTN (hypertension) CVD (cardiovascular disease) Mother Breast cancer Colon cancer Hyperlipidemia Paternal Grandfather Colon cancer Paternal Grandmother No problems noted. Social History Household Members: Spouse Housing: House Are you a primary floor care specialist to a significant other at home: No Do you presently have visiting nurse or other home services: No 75 years or older and lives alone: No Alcohol intake: former Patient Tobacco Use Status: Never used Tobacco e-Cigarette/Vaping Use: Never Used service: No Current occupational status: employed Current occupation: [employer] [place] Cognitive needs: No Hearing needs: No Vision needs: Yes (wear glasses) Review of Systems Const All systems reviewed & are unremarkable except as noted in HPI and below Physical Exam Vital Signs: Last Vital Signs Pulse 74 12/08/24 14:29 BP 126/68 12/08/24 14:29 Const General: cooperative, healthy appearing and well groomed Orientation/consciousness: patient oriented x3 Neuro General: patient oriented x3 Psych Appearance: well kempt Mental Status: mental status grossly normal Speech and movement: Normal speech and movement present Affect: Animated affect present Attitude: cooperative Thought process: Normal thought process present Thought content: Normal thought content present Insight: Good insight present (Psych) Judgement: Good judgement present (Psych) Assessment & Plan Assessment & Plan (1) Moderate alcohol use disorder, in early remission: Code(s): F10.21 - Alcohol dependence, in remission Category: Medical Plan The plan of care per patient's request is to decrease dose of naltrexone to 25 mg, 1/2 tablet daily for 1-2 weeks and if no symptoms of alcohol cravings resume then proceed to discontinue medication. Follow up in two months. Patient Instructions: - Decrease dose of naltrexone to 25 mg, 1/2 tablet daily for 1-2 weeks and if no symptoms of alcohol cravings resume then proceed to discontinue medication. - Follow up in tow months or sooner, if needed. - Call with questions, concerns or to report side effects/new onset of symptoms. - The patient verbalized understanding and agreed with plan of care. Coding Level of Care Code Est Pt Level 3 (95125) Diagnoses Moderate alcohol use disorder, in early remission F10.21
--- OUTSIDE RECORDS SUMMARY | 2024-12-08 14:30 | XMS_ITS | Encounter Summary ---
Author Organization [facility] Address [address] [facility] [address] [place] [phone] Phone Care Team Providers Care Memorial Counselor Name Role Phone Kelly Narayan MD, MPH Primary Care Provid er Pcp, Unknown Primary Care Provider Unavailabl e Encounter Details Date Type Department Care Team (Late st Contact Info) Description 10/12/2023 Procedure Pass [facility], Ct Scan - [address] [address] Social History Tobacco Use Types Packs/Day Years [...] high school, GED, job training, learning the Burmese language, technical skills, or developing parenting skills)? [...] Intimate Partner Violence Answer Date R ecorded Denied Basic Needs Not on file 06/14/2023 In the past 12 months have y ou been in a relationship with a person who hurts, threatens, or tries to control you? No 06/14/2023 Worried food would run out Not on file 06/14 In the past 12 months have y [...] documented as of this encounter Care Teams Memorial Counselor Relationship Specialty Start Date End Date Kelly Narayan MD, MPH [address] [address] [email or web address] PCP - General Family Medicine 03/29/20 06/16/24 Pcp, Unknown PCP - General 06/17/24 documented as of this encounter Additional Source Comments The information contained in this document represents components of the legal health record. It is not the complete legal health record.[facility]
== END 2024-12-08 14:33 | disposition home or self-care (01) ==
LOC: HO.HCC 14:18
PROVIDERS: PCP Nurse Practitioner Family; Visit Provider Clinical Nurse Specialist Psychiatric/Mental Health
DX: F10.21 Alcohol dependence, in remission (principal)
CPT/HCPCS: 99213

== ENCOUNTER 2024-12-16 07:34 | Outpatient (REF) | payer BC, SELFPAY ==
[2024-12-16 08:37] LABS: Alanine Aminotransferase 127 U/L (0-31); Albumin Level 4.7 g/dL (3.5-5.0); Alkaline Phosphatase 120 U/L (39-117); Aspartate Amino Transferase 67 U/L (5-31); Total Protein 7.4 g/dL (6.5-8.0)
[2024-12-21 00:33] LABS: FIB-ALT 95 U/L (6-29); FIB-Alpha-2-Macroglobulin 144 mg/dL (106-279); FIB-Apolipoprotein A1 252 mg/dL (101-198); FIB-GGT 133 U/L (3-70); FIB-Haptoglobin 203 mg/dL (43-212); FIB-Total Bilirubin 1.0 mg/dL (0.2-1.2); Liver Fibrosis Score 0.09; Liver Fibrosis Stage F0; Nec Inflam Act Grade A1-A2; Nec Inflam Act Score 0.47
== END 2024-12-16 07:35 | disposition home or self-care (01) ==
LOC: HO.LAB 07:34
PROVIDERS: PCP Nurse Practitioner Family; Visit Provider Nurse Practitioner Family
DX: R79.89 Other specified abnormal findings of blood chemistry (principal)
CPT/HCPCS: 36415; 80076; 81596

== ENCOUNTER 2024-12-30 10:00 | Outpatient (RCR) | payer BC, SELFPAY | END 2024-12-30 14:26 | disposition home health service (06) | LOC: HO.CR 10:00 | PROVIDERS: PCP Nurse Practitioner Family; Visit Provider Nurse Practitioner Family | DX: Z95.5 Presence of coronary angioplasty implant and graft (principal); Z98.890 Other specified postprocedural states | CPT/HCPCS: 93798 ==

== ENCOUNTER 2024-12-30 13:25 | Outpatient (REF) | payer BC, SELFPAY ==
--- NOTE | ~2024-12-30 | US_ITS ---
EXAMINATION: US ABDOMEN LIMITED WITH LIVER ELASTOGRAPHY CLINICAL INFORMATION: Elevated liver enzymes COMPARISON: December 05, [address] 04/14/2019 TECHNIQUE: Real-time imaging of the abdominal viscera. Noninvasive ultrasound liver fibrosis assessment is performed using Alana ElastPQ point quantification shear wave elastography (pSWE) with a 5 MHz transducer. Multiple elastography samples are obtained. FINDINGS: PANCREAS: The visualized pancreatic head and body are normal in appearance. The remainder of the pancreas is obscured from visualization by the overlying bowel gas. LIVER: The liver demonstrates normal size, contour and echogenicity. No focal lesion or intrahepatic biliary duct dilatation. The right lobe measures 14 cm in length. The left lobe measures 6 cm in length. The main portal vein is patent with a normal direction of flow and a continuous venous waveform. Shear wave elastography provides a median stiffness of 1.4 m/s (reference: normal median stiffness is 0.81 - 1.22 m/s). The IQR/median stiffness to assess sampling precision is 0.04 (reference: optimal IQR/median stiffness is under 0.3). GALLBLADDER: The gallbladder is physiologically distended without evidence of stones, sludge, polyps, wall thickening or pericholecystic fluid. COMMON BILE DUCT: Normal in caliber measuring 0.4 cm in diameter. RIGHT KIDNEY: There is a complex cyst with thin internal septation measuring 7.1 x 5.5 x 7.5 cm previously 6.7 x 6.6 x 6.0 cm. The kidney measures 13 cm in maximum dimension. FREE FLUID: None seen. US/US abdomen schwarz w elastography IMPRESSION: Enlarging septated cystic mass in the right kidney. Follow-up MRI abdomen/renal without and with IV contrast. Unremarkable liver ultrasound. 2. Elastography: In the absence of other known clinical signs, rules out compensated advanced chronic liver disease. Electronically signed by: Edu Lucia MD 12/30/2024 02:15 PM EDT
--- OUTSIDE RECORDS SUMMARY | 2024-12-30 13:27 | XMS_ITS | Patient Health Record ---
Author Organization [employer] [facility] Address [address], [place] [id number] Care Team Providers Care Rum Processing Operator Name Role Phone Raleigh Morillo Unavailable Reason For Referral No Information Medications Medication SIG (Take, Route, Frequency, Duration) Notes Start Date End Date Status Aspirin Active Crestor Active amLODIPine Besylate Active Levothyroxine-Liothyronine Active Social History Tobacco Use: Social History Observation Description Date Details (start date - stop date) Never Smoker NA - NA Tobacco Use/Smoking Question Answer Notes Are you a nonsmoker Problems Problem Type SNOMED Code ICD Code Onset Dates Problem Status W/U Status Risk Notes Problem Pain of left knee joint (finding) (36263863426694 7) Pain in left knee (M25.562) Active confirmed Problem Sprain of lateral collateral ligament of knee (66590406) Sprain of lateral collateral ligament of left knee, initial encounter (S83.422A) Active confirmed Plan Of Treatment Pending Test Test Name Order Date X ray : Knee, min 3 views, left 04/08/20 19 Insurance Providers Payer Name Payer Address Payer Phone Subscriber Number Group Number Insured Name Patient Relationship to Insured Coverage Start Date Coverage End Date R G - [address] [address] [address] [place] [address] [id number] HarshadLicha Self - patient is the insured Medical (General) History Medical History History ICD Code Thyroidism hypertension High Cholesterol Surgical History Surgery Date(Month/Year) tubal ligation wisdom teeth extraction Hospitalization History Reason Date(Month/Year) see above surgery
--- OUTSIDE RECORDS SUMMARY | 2024-12-30 13:27 | XMS_ITS | Encounter Summary ---
Author Organization [employer] [facility] Address [address] [facility] [address] [place] [phone] Phone Care Team Providers Care Band Shover Name Role Phone Kelly Narayan MD, MPH Primary Care Provid er Pcp, Unknown Primary Care Provider Unavailabl e Encounter Details Date Type Department Care Team (Late st Contact Info) Description 10/12/2023 Procedure Pass [facility], Ct Scan - [address] [address] Social History Tobacco Use Types Packs/Day Years [...] high school, GED, job training, learning the Austrian language, technical skills, or developing parenting skills)? [...] documented as of this encounter Care Teams Band Shover Relationship Specialty Start Date End Date Kelly Narayan MD, MPH [address] [address] [email or web address] PCP - General Family Medicine 03/29/20 06/16/24 Pcp, Unknown PCP - General 06/17/24 documented as of this encounter Additional Source Comments The information contained in this document represents components of the legal health record. It is not the complete legal health record.[facility]
== END 2024-12-30 13:26 | disposition home or self-care (01) ==
LOC: HO.US 13:25
PROVIDERS: PCP Nurse Practitioner Family; Visit Provider Nurse Practitioner Family
DX: R79.89 Other specified abnormal findings of blood chemistry (principal); F10.11 Alcohol abuse, in remission; R74.01 Elevation of levels of liver transaminase levels
CPT/HCPCS: 76705; 76981

== ENCOUNTER → 2024-12-30 13:27 | Outpatient (BNV) | payer BC, SELFPAY | PROVIDERS: PCP Nurse Practitioner Family; Visit Provider Radiology Diagnostic Radiology | DX: N28.1 Cyst of kidney, acquired (principal) | CPT/HCPCS: 76705 ==

== ENCOUNTER 2025-01-12 07:50 | Outpatient (REF) | payer BC, SELFPAY ==
--- OUTSIDE RECORDS SUMMARY | 2025-01-12 07:54 | XMS_ITS | Patient Health Record ---
Author Organization via680 [facility] A Address [address] [place], [place] [id number] Care Team Providers Care Human Factors Scientist Name Role Phone Raleigh Morillo Unavailable Reason [...] Problem Pain of left knee joint (finding) (73731695750960 7) Pain in left knee (M25.562) Active confirmed Problem Sprain of lateral collateral ligament of knee (60408202) Sprain of lateral collateral ligament of left knee, initial encounter (S83.422A) Active confirmed Plan Of Treatment Pending Test Test Name Order Date X ray : Knee, min 3 views, left 04/08/20 19 Insurance Providers Payer Name Payer Address Payer Phone Subscriber Number Group Number Insured Name Patient Relationship to Insured Coverage Start Date Coverage End Date R G - [address] [address] [place] [address] [phone] [id number] Licha Patricia Self - patient is the insured Medical (General) History Medical History History ICD Code Thyroidism hypertension High Cholesterol Surgical History Surgery Date(Month/Year) tubal ligation wisdom teeth extraction Hospitalization History Reason Date(Month/Year) see above surgery
--- OUTSIDE RECORDS SUMMARY | 2025-01-12 07:54 | XMS_ITS | Encounter Summary ---
Author Organization [facility] Address [address] [place] [address] Phone Care Team Providers Care Public Works Director Name Role Phone Pcp, Unknown Primary Care Provider Unavailabl e Reason for Visit * Reason Comments Medication Refill Encounter Details Date Type Department Care Team (Late st Contact Info) Description 12/12/2024 Refill [facility] [address] [place] [address] Kelly Narayan MD, MPH [address] [facility] [address] [place] [address] [email or web address] Medication Refill Social History Tobacco Use Types Packs/Day Years [...] high school, GED, job training, learning the Korean language, technical skills, or developing parenting skills)? [...] AM EDT documented as of this encounter Progress Notes * Sabrina Vera - 12/16/2024 9:18 AM EDT No longer PT * Rica Rhodes MA - 12/14/2024 12:45 PM EDT Rx Care Gap Status - Instructions for Clinical Staff (prescriber discretion applies): > Mismatch review guide > At least one request does not meet full criteria. Specifics below. > No recent or future appts: Please review request for appropriateness. > Labs due: Please remind patient. > Orders needed: Click OPA and Accept to open SmartSet. Labs due for pended Rx Requests: TSH - Needs order * Other labs due based on Medication List: Lipid panel - Needs order * Visit Info Last visit: 09/14/2023 Kelly Narayan MD, MPH - Primary Care [facility] > Requested f/u: Return in about 3 months (around 12/15/2023) for Follow up alcohol and LFTs. Upcoming visit: None ACTIONS TAKEN BY Rica Rhodes MA - Visit needed - Scheduled; sent msg to FD; and/or reminded pt. Thyroid Medication Rx Protocol - levothyroxine sodium Criteria not met; renew for up to 3 months. Visit in the past 14 months: No Clinical criteria: - TSH within past year: No - Last TSH was normal: N/a Lab Results Component Value Date TSH 1.27 09/10/2023 FREE T4 1.9 (H) 06/18/2023 No Health Maintenance Labs Overdue documented in this encounter Plan of Treatment Not on file documented as of this encounter Visit Diagnoses Not on filedocumented in this encounter Additional Health Concerns Assessment Noted Time PHQ-2 Depression Total Score: 0 06/14/19 24 6:28 PM EST documented as of this encounter Care Teams Public Works Director Relationship Specialty Start Date End Date Pcp, Unknown PCP - General 06/17/24 documented as of this encounter Additional Source Comments The information contained in this document represents components of the legal health record. It is not the complete legal health record.[facility]
--- OUTSIDE RECORDS SUMMARY | 2025-01-12 07:54 | XMS_ITS | Clinical Summary ---
Author Organization [employer] [facility] Address [address] [address] Phone Care Team Providers Care Carbon Sequestration Plant Engineer Name Role Phone Pcp, Unknown Primary Care Provider Unavailabl e Allergies No known active allergies Medications aspirin 81 MG EC tablet Take 81 mg by mouth daily. Active betamethasone valerate (LUXIQ) 0.12 % foam Apply topically 2 (two) times a day. Use for no more than two weeks at a time 50 g 5 3 Active atenolol (TENORMIN) 50 mg tablet TAKE ONE TABLET BY MOUTH EVERY DAY. 90 tablet 2 3 Active multivit with minerals/lutein (MULTIVITAMIN 50 PLUS ORAL) Take by mouth. Active rosuvastatin (CRESTOR) 20 MG tabletIndications: Mixed hyperlipidemia take one tablet by mouth every day 90 tablet 3 4 Active levothyroxine (SYNTHROID, LEVOTHROID) 150 MCG tablet TAKE ONE TABLET (150 MCG TOTAL) BY MOUTH EVERY MORNING 90 tablet 3 4 Active Active Problems Problem Noted Date Diagnosed Date Alcohol use disorder 06/17/2023 Assessment & Plan (06/17/2023 3:03 PM EST): She is doing really well with abstaining. She and her have a mutual and supportive plan to limit their alcohol intake. She was supported in this plan. Personal history of colonic polyps 11/19/2020 Fibroids, submucosal 06/14/2020 Overview (06/14/2020): 06/14/20 noted on SHG. Patent foramen ovale with atrial septal aneurysm 04/30/2020 Juvenile idiopathic scoliosis 04/30/2020 PCB (post coital bleeding) 04/30/2020 Assessment & Plan (04/30/2020 4:13 PM EST): Cervical polyp found on exam as cause. The attachment point seems to be high enough that may be cervical vs prolapsing endometrial. Will get US and refer to ObGyn for removal. Elevated fasting glucose 04/30/2020 Overview (09/14/2023): A1c normal 09/2023 Assessment & Plan (04/30/2020 4:11 PM EST): Check a1c with next set of labs. May improve with cutting out alcohol. Mixed hyperlipidemia 04/23/2020 Assessment & Plan (06/17/2023 3:03 PM EST): Due for monitoring labs Assessment & Plan (07/28/2022 3:29 PM EDT): Recent FLP slightly improved but still need to work on lowering TGs. Exercise and decreased alcohol consumption will help with this. Assessment & Plan (01/28/2022 8:31 PM EDT): Will get levels checked soon. Cont statin for now Assessment & Plan (04/30/2020 4:12 PM EST): LDL still elevated and would ideally be on statin medication. Will continue at 20mg for now and reassess LFTs. Elevated LFTs 04/23/2020 Assessment & Plan (04/30/2020 4:11 PM EST): Abstain from alcohol completely for next 2 months, then we will recheck levels. If remain elevated, plan to stop crestor and check after a month to clarify what is cause of abnormalities which have been persistently mildly elevated for a year now in setting of regular alcohol use and new statin medication. Assessment & Plan (04/23/2020 5:14 PM EST): Alcohol in moderation reviewed especially in light of elevated LFTs. Not clear that she has had further work up beyond attributing to statin. Will repeat and reassess whether further labs needed. Acquired hypothyroidism 04/23/2020 Assessment & Plan (06/17/2023 3:03 PM EST): Due for monitoring labs Assessment & Plan (02/02/2023 12:51 PM EDT): Decrease dose and repeat level in 6-8 wks Assessment & Plan (01/22/2021 3:07 PM EDT): Recheck levels Assessment & Plan (04/23/2020 5:12 PM EST): Well controlled by recent TSH from [place] Essential hypertension 04/23/2020 Assessment & Plan (06/17/2023 3:03 PM EST): Well controlled, cont current meds Assessment & Plan (02/02/2023 12:51 PM EDT): Controlled. Cont working on cutting back on alcohol. Agree that cutting out entirely would be her best course of action Assessment & Plan (07/28/2022 3:30 PM EDT): Borderline controlled. Cont current meds, cut back on alcohol and return to exercise routine. Assessment & Plan (01/28/2022 8:30 PM EDT): Well controlled, cont current meds Assessment & Plan (07/08/2021 1:02 PM EST): Well controlled by home BP monitor. Assessment & Plan (01/22/2021 3:07 PM EDT): Well controlled today Assessment & Plan (04/23/2020 5:13 PM EST): Well controlled, cont atenolol and chlorthalidone. Renal cyst 04/23/2020 Overview (04/23/2020): 04/2019 initially noted 6.3x 5.1 cm lower pole right kidney Assessment & Plan (04/23/2020 5:16 PM EST): Cont following with urology Heart murmur 04/23/2020 Assessment & Plan (04/23/2020 5:17 PM EST): Will obtain prior records. Unclear whether PFO or septal defect. Resolved Problems Problem Noted Date Diagnosed Date Resolved Date Intermenstrual bleeding 05/24/202011/08 Assessment & Plan (05/24/2020 4:49 PM EST): DDx intermenstrual bleeding reviewed. Intermenstrual bleeding may be secondary to the cervical polyp which bled easily on contact. Possibility of perimenopausal hormonal changes, endometrial hyperplasia, endometrial polyps, less likely carcinoma discussed. SHG planned and possible endometrial biopsy. Endometrial thickening on ultrasound 05/24/2020 11/19/2020 Assessment & Plan (05/24/2020 4:44 PM EST): Endometrial thickness 20 mm in menstruating woman. Ultrasound was obtained today and approximately 4 weeks after LMP. Patient is currently late for LMP. More likely than not thickness is physiologic. In light of intermenstrual staining over the past couple months I have suggested scheduling a sonohysterogram in week after next menses. Patient to contact me with onset of menses for scheduling. Cervical polyp 04/30/2020 11/19/2020 Assessment & Plan (05/24/2020 4:46 PM EST): Approximately 1 cm polyploid mass prolapsing to level of external os. Positive contact bleeding. Patient counseled for expectant management versus removal. Advised her it is possible removal will eliminate postcoital bleeding. Patient desires removal. Encounters Date Type Department Care Team Description 12/12/2024 [facility]ill [facility] [address] [place] [address] Kelly Narayan MD, MPH Medication Refill from Last 3 Months Immunizations Immunization Administration Dates Next Due COVID-19 (Pre-03/02) Pfizer Vaccine, mRNA, PF 03/18/2021,06/03/2020,05/13/2020 Hepatitis B Adult 01/13/2020 INFLUENZA, SPLIT VIRUS, TRIV ALENT W/ PRESERVATIVE IM 05/12/2017 Influenza Quadrivalent w/ Preservative IM 2018,03/23/2018 MMR 03/24/2018 Tdap 01/29/2016 Family History Medical History Relation Comments No Known Problems Brother No Known Problems Daughter 1 No Known Problems Daughter 2 No Known Problems Daughter 3 Bladder Cancer Father Hyperlipidemia Father Hypertension Father Breast cancer Mother caught early Colon cancer Paternal Grandmother Hyperlipidemia Paternal Grandmother Hypertension Paternal Grandmother Heart disease Neg Hx Hypothyroidism Neg Hx Melanoma Neg Hx Ovarian cancer Neg Hx Pancreatic cancer Neg Hx Relation Status Comments Brother Alive Daughter 1 Alive Daughter 2 Alive Daughter 3 Alive Father Alive Mother Alive Paternal Grandmother Social History Tobacco Use Types Packs/Day Years Used Date Smoking Tobacco: Former Smokeless Tobacco: Never Tobacco Cessation:Counseling Given: Not Answered Comments:social smoker until about 10 yrs ago; [...] high school, GED, job training, learning the Micronesian language, technical skills, or developing parenting skills)? [...] your housing situation today? I have ana sing 06/14/2023 How many times have you moved [...] Orientation Straight 12/03/2022 7: 42 AM EDT Last Filed Vital Signs Vital Sign Reading Time Taken Comments Blood Pressure 136/72 09/14/2023 9:38 AM EDT Pulse 50 09/14/2023 9:38 AM EDT Temperature 36.4 C (97.6 F) 01/05/2023 2:40 PM EDT Respiratory Rate 18 12/03/2022 10:40 AM EDT Oxygen Saturation 99% 09/14/2023 9:38 AM EDT Inhaled Oxygen Concentration - - Weight 68 kg (150 lb) 06/17/2023 11:28 AM EST Height 153.9 cm (5' 0.59 ) 06/17/2023 11:[address] Body Mass Index 28.73 06/17/2023 11:28 AM EST Plan of Treatment Health Maintenance Due Date Last Done Comments SMOKING Hx and SMOKELESS TOBACCO SCREENING 1980 COLOGUARD 2012 FIT TEST 2012 FOBT 2012 SIGMOIDOSCOPY 2012 VIRTUAL COLONOSCOPY 2012 PNEUMOCOCCAL VACCINES (50+ years) (1 of 1 - PCV) 2017 ZOSTER VACCINES (1 of 2) 2017 PAP SMEAR 04/30/2023 04/30/2020 BLOOD PRESSURE 03/16/2024 09/14/2023 DEPRESSION SCREENING 06/14/2024 06/14/2023 TSH LEVEL 09/09/2024 09/10/2023, 12/2023, 12/03/2022, Additional history exists INFLUENZA VACCINE (#1) 2024 9, 03/23/2018, 05/12/2017 COVID-19 VACCINE ( season) 2025 09/06/2021, 03/18/2021, 06/03/2020, Additional history exists MAMMOGRAM 01/23/2025 01/23/2023, 12/09, 11/07/2019 Adult Td,Tdap Booster 01/28/2026 01/29/2016 SCREENING FOR DIABETES 09/09/2026 09/10/2023, 2023 COLONOSCOPY 11/28/2027 11/27/2017 COLORECTAL CANCER SCREENING 11/28/2027 LIPID PANEL 06/18/2028 06/18/2023, 07/09, 02/25/2022, Additional history exists HEPATITIS C SCREENING Completed 01/22/2021 HIV ONE-TIME SCREENING (18-65 YEARS) Completed 01/22/2021 HEPATITIS A VACCINES Aged Out No long er eligible based on patient's age to complete this topic HIB VACCINES Aged Out No longer eligi ble based on patient's age to complete this topic MENINGOCOCCAL VACCINES (ACWY) Aged Out No longer eligible based on patient's age to complete this topic MENINGOCOCCAL VACCINES (B) Aged Out N o longer eligible based on patient's age to complete this topic Medical Devices Not on file Procedures Procedure Name Priority Date/Time Associated Diagnosis Comments TSH WITH REFLEX Routine 09/10/2023 8:02 AM EDT Acquired hypothyroidism LIPID PANEL Routine 06/18/2023 8:04 AM EST Mixed hyperlipidemia MAMMOGRAPHY Routine 01/23/2023 HEPATITIS C ANTIBODY, QUALITATIVE Routine 01/22/2021 3:06 PM EDT Need for hepatitis C screening test PAP TEST Routine 04/30/2020 12:00 AM EST COLONOSCOPY FOR RESULT ENTRY ONLY Routine 11/27/2017 from Last 3 Months or Most Recently Relevant to Health Maintenance Results * TSH with reflex (09/10/2023 8:02 AM EDT) TSH 1.27 0.27 - 4.20 uIU/mL [facility] Blood 09/10/2023 8:02 AM EDT 09/10/2023 8:15 AM EDT us Kelly Narayan MD, MPH LAB BLOOD ORDERABLES Final Result Performing Organization Address City/State/[facility] Co de Phone Number [address] [address] * (ABNORMAL) Lipid panel (06/18/2023 8:04 AM EST) HDL 77 mg/dL [facility] Comment: Interpretation <40 mg/dL: Low HDL cholesterol (major risk factor for CHD) Greater than or equal to 60 mg/dL: High HDL cholesterol ( negative risk factor for CHD) HDL - cholesterol is affected by a number of factors, e.g. smoking, excerise, hormones, sex and age. CHOLESTEROL 227 0 - 240 mg/dL [facility] TRIGLYCERIDES 171(H) 30 - 160 mg/dL [facility] LDL 116 50 - 129 mg/dL [facility] Comment: LDL levels in terms of risk for coronary heart disease: <100 mg/dL: Optimal 100-129 mg/dL: Near or above optimal 130-159 mg/dL: Borderline high 160-189 mg/dL: High >190 mg/dL: Very High CARDIAC RISK RATIO 2.9(L) 3.3 - 4.4 C [facility] Blood 06/18/2023 8:04 AM EST 06/18/2023 8:10 AM EST Kelly Narayan MD, MPH LAB BLOOD ORDERABLES Final Result Performing Organization Address [facility] Co de Phone Number [address] [address] * MAMMOGRAPHY FOR RESULT ENTRY ONLY (01/23/2023) Kelly Narayan MD, MPH HEALTH MAINTENANCE F inal Result * Hepatitis C antibody, qualitative (01/22/2021 3:06 PM EDT) HCV NON-REACTIV E NON-REACTI VE [facility] Blood 01/22/2021 3:06 PM EDT 01/22/2021 3:20 PM EDT Result [facility] Kelly Narayan MD, MPH LAB BLOOD ORDERABLES Final Result Performing Organization Address [facility] de Phone Number [address] [address] * Pap Smear (04/30/2020 12:00 AM EST) 04/30/2020 05/01/2020 8:2 0 AM EST Narrative SEE NARRATIVE - 05/03/2020 1:35 PM EST [address] [address] Conference Translator: Selam Yung MD OIL EXPELLER Cytology Report FINAL DIAGNOSIS A. PAP SMEAR (SUREPATH) CE: SPECIMEN ADEQUACY: Satisfactory for evaluation; transformation zone present. INTERPRETATION: NEGATIVE FOR INTRAEPITHELIAL LESION OR MALIGNANCY. Reactive changes. Reparative changes. Electronically Signed Out By: MD Jeff York CT(ASCP) By his/her signature above, the pathologist listed as making the Final Diagnosis certifies that he/she has personally reviewed this case and confirmed or corrected the diagnosis. The Pap test is a screening test primarily for squamous cancers and precursors and has associated false-negative and false-positive results. New technologies such as liquid-based preparations may decrease but will not eliminate all false-negative results. Regular sampling and follow-up of unexplained clinical signs and symptoms are recommended to minimize false negative results. PROCEDURES/ADDENDA HPV Testing (Requested) Ordered Date: 05/01/2020 A. PAP SMEAR (SUREPATH) CE: Human Papilloma Virus Test Negative for high-risk human papillomavirus types 16, 18, 45 and the Other high risk probe set (Includes 31, 33, 35, 39, 51, 52, 56, 58, 59, 66, 68) by [employer] HR-HPV analysis. Clinical correlation is advised. This HPV test was performed at [facility], [address] [place] [address]. This test has been FDA approved for SurePath cervical cytology specimens. The accuracy and precision of this test for all other specimen sources has been verified in the Cytopathology Laboratory of the [facility] and has not been cleared or approved by the U.S. Food and Drug Administration. Clinical correlation is advised. CLINICAL HISTORY Date of Last Menstrual Period: Not Provided Menstrual History: Alpa-Menopausal Bleeding, Post Coital Other Clinical Conditions: Screening Pap OIL EXPELLER exam with abnormal findings: CERVICAL VS PROLAPSING ENDOMETRIAL POLYP PRESENT SPECIMEN SOURCE A: PAP SMEAR (SUREPATH) CE Patient Name: LISANDRA RO : 1965 (Age: 54) Sex: F [facility] Date of Collection: 04/30/2020 Date of Reported: 05/03/2020 13:35 Results to: Kelly Narayan MD, MPH us Kelly Narayan MD, MPH CYTOLOGY ORDERABLES Final Result SEE NARRATIVE * COLONOSCOPY FOR RESULT ENTRY ONLY (11/27/2017) Colonoscopy path tubular adenoma please see scanned report us Historical Provider HEALTH MAINTENANCE Final Result from Last 3 Months or Most Recently Relevant [place] [id number] BLUE CROSS OUT OF STATE PPO BLUE CROSS OUT OF STATE PPO BLUE CROSS OUT OF STATE PPO OUT [facility] [place] [address] [place] [address] OUT [facility] BLUE CROSS OUT OF STATE PPO Member Subscriber Plan / Payer (Ef fective 2021-Present) Name:Lisandra Hyatt Relation to Subscriber:Spouse Name:JEFF HYATT Date of :1900 (Home) Address: [address] [place] [id number] Payer ID:[id number] (NAIC) Type:PPO Address: [address] [place], [place] BLUE CROSS OUT OF [facility] PPO Member Subscriber Plan / Payer ( fective 2021-Present) Name:Lisandra Hyatt Relation to Subscriber:Spouse Name:JEFF HYATT Date of :1900 (Home) Address: [address], [place] Payer ID:[id number] (NAIC) Type:PPO Address: [address] [place], [place] BLUE CROSS OUT OF STATE PPO BLUE CROSS OUT [facility] PPO Care Teams Carbon Sequestration Plant Engineer Relationship Specialty Start Date End Date Pcp, Unknown PCP - General 06/17/24 Additional Source Comments The information contained in this document represents components of the legal health record. It is not the complete legal health record.[facility]
[2025-01-12 08:40] LABS: Hemoglobin A1C 130.3405 umol/L; Total Hemoglobin (HGBA1C) 3535.8560 umol/L
[2025-01-12 09:17] LABS: Alanine Aminotransferase 99 U/L (0-31); Albumin Level 4.8 g/dL (3.5-5.0); Alkaline Phosphatase 94 U/L (39-117); Anion Gap 10 (12-20); Aspartate Amino Transferase 54 U/L (5-31); Blood Urea Nitrogen 14 mg/dL (9-16); Calcium 10.2 mg/dL (8.4-10.2); Carbon Dioxide 30 mmol/L (22-29); Chloride 108 mmol/L (96-108); Cholesterol 160 mg/dL (<200); Estimated Glomerular Filt Rate > 60; HDL Cholesterol 67 mg/dL (>40); Potassium 4.4 mmol/L (3.3-5.1); Sodium 144 mmol/L (135-145); Total Protein 7.2 g/dL (6.5-8.0); Triglycerides 112 mg/dL (<150)
[2025-01-12 10:54] LABS: Free T4 (Free Thyroxine) 1.72 ng/dL (0.71-1.85)
== END 2025-01-12 07:51 | disposition home or self-care (01) ==
LOC: HO.LAB 07:50
PROVIDERS: PCP Nurse Practitioner Family; Visit Provider Nurse Practitioner Family
DX: Z13.1 Encounter for screening for diabetes mellitus (principal); I10 Essential (primary) hypertension; E03.9 Hypothyroidism, unspecified; E78.2 Mixed hyperlipidemia
CPT/HCPCS: 36415; 80053; 80061; 82306; 83036; 84439; 84443

== ENCOUNTER 2025-01-18 14:52 | Outpatient (AMB) | payer BC, SELFPAY ==
--- NOTE | 2025-01-18 14:58 | A.OFFPC_ITS ---
Vital Signs 01/18/25 15:00 BMI Reason not done Patient refused/unable BP 110/68 Blood Pressure Location Rt brachial Position Sitting Respiration 12 Pulse 68 Pulse Source Pulse Oximeter Temp 98.3 F Temp Source Oral Pulse Oximetry (%) 96 Oxygen Delivery Method Room Air Intake Visit Reasons: 6 months 30 min routine fu Intake Note: Six month follow up Supervisor [employer] Required: No Allergies No Known Allergies Allergy (Mild, Verified 01/18/25 14:59) NONE Medication List - Last Reconciled 01/18/25 by MADONNA Robles- aspirin (Adult Aspirin Regimen) 81 mg PO DAILY betamethasone valerate 0.12% 1 appl topical BID levothyroxine 150 mcg PO DAILY multivitamin 1 tab PO DAILY nitroglycerin 0.3 mg sublingual Q5M PRN rosuvastatin 40 mg PO DAILY 90 days thiamine HCl (vitamin B1) 100 mg PO DAILY 30 days ticagrelor 90 mg PO BID Tobacco use date assessed: 01/18/25 Dental Screening Dental Screen Date: 10/20/24 HPI HPI Comments History of Present Illness Details 59 y/o f with hypothyroidism, hyperlipid emia, hypertension, scoliosis, mild mitral regurgitation, large patent PFO, atrial septal aneurysm, complex renal cyst R, vitamin-D deficiency, 5 mm hyperechoic avascular lesion adjacent to the gallbladder fossa noted on ultrasound of the abdomen 09/18/2023 (likely hemangioma), alcohol use disorder, menopause, scalp psoriasis, uterine fibroids, right ovarian cysts, family hx colon ca & breast ca, osteopenia Status post tubal ligation 2001, NAV placed to mid LAD 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 2 dtrs, Romi & Le. 1 Grandson Quentin tthew born 08/2024. Moving to [place]. Family history: Dad with hypertension, renal tumors from metastatic bladder cancer -; mom with breast cancer, child with kidney disease, paternal grandmother with colon cancer Health Maintenance: Colon age 52 Tdap 01/29/16, flu admin today Pap 2019 wnl Mammo 01/2024 The breasts are heterogeneously dense, which may obscure small masses (ACR BI-RADS breast composition Category c). MRI ordered 04/25/24 Breast MRI normal, Recommend yearly MRI screening surveillance.Recommend yearly screening mammogram. DEXA 07/2024 osteopenia, repeat 2 years [facility] of Care: Renal Cardiology Optho. Wears reading glasses. 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 - Suppressed TSH observed with levothyro xine. Dose cut in 05/12 (75mg) a few days ago. No sx. - Hyperlipidemia and coronary artery dis ease managed with recent increase of rosuvastatin to 40mg. Active w/ Cards. Completed Cardiac rehab. No complaints. - LDL-C stable; concerns of rosuvastatin impact on liver function are noted, as she had a spike in LFTs after increasing from 20 to 40mg. Denies abd sx. - Manage alcohol use disorder with past naltrexone use, has stopped; remains on thiamine. Sober 5.5 months! Active w/ Addiction Med - Elevated LFTs; pending GI follow-up, a ppt scheduled 03/2025; Request to devonte sooner sent to [facility]. Liver US done. Serial LFTS. Improving. - Complex renal cyst, R; has shown signi ficant growth; MRI pending for further growth assessment. Not active w/ Renal at this time, last time was around 2020. She endorses recent R flank pain that feels different from her chronic LBP - Intentional wt loss; exercise; eating plant based diet for last 30 days. has had soft stools during this time; attributes to diet changes. This could be from suppressed TSH, too. Review of Systems - Endocrine: Denies symptoms related to suppressed TSH (e.g., sweating, diarrhea). - Gastrointestinal: Reports involvement with gastroenterology; denies bloating or abdominal pain. - Hepatic: Denies any symptoms suggestiv e of liver-related complications. - Cardiovascular: Reports harmonic LDL; no symptoms of bleeding noted. - Musculoskeletal: Reports chronic back pain, potentially related to renal cyst. - Neurological: No reported issues. - Dermatological: Denies issues related to cutaneous bleeding or trauma. Physical Exam General: Well developed, well nourished, in no acute distress. Appears stated age. Head: Normocephalic, atraumatic. Eyes: Pupils are equal, round and reactive to light and accommodation. Conjunctivae are clear. Scleras nonicteric Lungs: Clear to auscultation bilaterally. No rales, rhonchi or wheeze noted. Good air flow in all hamm. Heart: Regular rate and rhythm. 2/6 systolic murmur,no click, rubs or gallops are noted. Abd: Soft, nontender, liver edge palpable, nontender. BS normoactive. Diastases Rectus Pulses: Peripheral pulses are equal and palpable bilaterally. Extremities: No clubbing, cyanosis nor edema is noted. Neurologic: Gait and station normal. Cranial Nerves 2-12 intact. Motor strength grossly symmetrical and intact. No sensory loss. Balance normal. Skin: No rashes, ulcers, or lesions noted. Turgor is good. Skin color is good. Hair and nails are without abnormalities. scattered moles on trunk and ext Psych: Normal eye contact, affect and mood appropriate, and normal interactions. Patient is alert and appropriate to context. Discussion Notes During our discussion, I reviewed the patient's management plan for hypothyroidism due to a suppressed TSH. . We evaluated the hyperlipidemia and coronary artery disease status, particularly the recent increase in rosuvastatin, and its correlation with liver enzyme levels. I reaffirmed the importance of continued thiamine maintenance for alcohol use disorder and addressed concerns about liver function. Further gastrointestinal evaluation for elevated LFTs is planned. The patient is to schedule an MRI for further investigation of the complex R renal cyst. Lifestyle modifications such as a plant-based diet and exercise were reinforced. Finally, we discussed psychosocial factors impacting her and her daughter?s situation in [place]. Follow-ups were planned for thyroid function and liver enzyme reevaluation, aligning with specialty recommendations. Patient was given time to ask questions. All questions were answered to their satisfaction. Assessment and Plan 1. Hypothyroidism - Monitor TSH; continue levothyroxine 75 mg. - Repeat TSH in 6 weeks. 2. Hyperlipidemia and Coronary Artery Di sease - Maintain rosuvastatin 40 mg. - Monitor LFTs and lipids. - cont lifestyle mods and care with card s 3. Alcohol Use Disorder - Continue thiamine. has prn naltrexone for cravings. 5.5 months sober! - Monitor for cravings. 4. Elevated LFTs - Schedule and follow up with GI. - Monitor trends. Repeat labs in 6 weeks . ? r/t ^ in Rosuvastatin 5. Complex Renal Cyst, R - MRI scheduled. - Follow-up post-MRI. My office will arr riley for this 6. Lifestyle Modification - Continue diet and exercise. Patient Instructions - Continue all medication as prescribed. - Follow a healthy plant-based diet and regular exercise. - Monitor any changes in symptoms or hea lth and report them. - Schedule an MRI for your renal cyst an d follow up with GI as planned. - Return for repeat thyroid and liver fu nction tests in 6 weeks. - OV in 6 mo for CPE. Consent The patient consented to education about her ongoing management of hypothyroidism, hyperlipidemia, coronary artery disease, alcohol use disorder, and elevated liver function tests. We reviewed potential side effects of medications, the rationale for the planned MRI for her renal cyst, and the necessity of follow-up with specialized care. Consent was obtained verbally during the consultation. Patient was informed and verbally consented to the use of an ambient scribe for clinic note documentation during this visit. Total time spent caring for the patient today was 42 minutes. This includes time spent before the visit reviewing the chart, time spent during the visit, and time spent after the visit on documentation, reviewing laboratory results, diagnostic imaging, medications, performing a medically necessary evaluation, counseling on diagnoses, care coordination, ordering appropriate tests, ordering appropriate medications, review of tests performed by other providers, reporting test results with the patient, communication with other healthcare providers. [facility] Medical History Abnormal stress test Elevated LFTs Liver lesion Scoliosis High cholesterol Hypertension Surgical History H/O heart artery stent (~10/2024) History of colonoscopy (~2017) History of wisdom tooth extraction History of tubal ligation Family History Father High cholesterol HTN (hypertension) CVD (cardiovascular disease) Mother Breast cancer Colon cancer Hyperlipidemia Paternal Grandfather Colon cancer Paternal Grandmother No problems noted. Social History Household Members: Spouse Housing: House Are you a primary critical care unit manager to a significant other at home: No Do you presently have visiting nurse or other home services: No 75 years or older and lives alone: No Alcohol intake: former Patient Tobacco Use Status: Never used Tobacco e-Cigarette/Vaping Use: Never Used service: No Current occupational status: employed Current occupation: [employer] Current occupational exposures/hazards: No Cognitive needs: No Hearing needs: No Vision needs: Yes (wear glasses) Questionnaire Thrive Questionnaire Date Thrive assessed: 07/08/24 I am a: Patient What is your living situation today?: I have a steady place to live Within the past 12 months, did the food you bought not last and you didn't have the money to get more?: Never true Within the past 12 months, did you worry whether your food would run out before you got money to buy more?: Never true Do you have trouble paying for medicines?: No Do you have trouble getting transportation to medical appointments?: No Do you have trouble paying your heating and electricity bill?: No Do you have trouble taking care of your child, family member or friend?: No Do you have trouble with day-to-day activities such as bathing, preparing meals, shopping, managing finances, etc.?: No Are you currently unemployed and looking for a job?: No Are you interested in more education?: No Please select the resources that you would like help with: None Currently or been in a relationship where the following occur: No concerns reported THRIVE Score: 0 AUDIT C Alcohol Use Questionnaire (AUDIT-C) 1. How often do you have a drink containing alcohol?: Never (5 months sober) 3. How often do you have six or more drinks on one occasion?: Never Total Score: 0 ELISSA-7 AMB Questionnaire ELISSA-7 Date ELISSA - 7 assessed: 07/15/24 Source: Developed by Drs. Hoang Brunson, Nita De La Cruz, Cecil Yuan and colleagues, with an educational elaine from [employer]. Physical exam (Primary Care) Vital Signs: Last Vital Signs Temp 98.3 F 01/18/25 15:00 Pulse 68 01/18/25 15:00 Resp 12 01/18/25 15:00 BP 110/68 01/18/25 15:00 Pulse Ox 96 01/18/25 15:00 Oxygen Delivery Method Room Air 01/18/25 15:00 Tobacco/Smoking Status: Tobacco use Status Tobacco use date assessed 01/18/25 01/18/25 15:06 Patient Tobacco Use Status Never used Tobacco 01/18/25 15:06 e-Cigarette/Vaping Use Never Used 09/10/25 15:06 Thrive Assessment: Date of Thrive Assessment Date Thrive assessed 07/08/24 01/18/25 15:06 Currently or been in a relationship where the following occur: No concerns reported Results Reviewed Results Reviewed: Your TSH is quite low; please take 1/2 of your levothyroxine daily starting tomorrow. We can review the rest of your labs when i see you but i dont want you to wait to reduce your thyroid medication [facility] 01/12/25 Result Units Range Interpretation Provider Comments Sodium Level 144 mmol/L (135-145) Potassium Level 4.4 mmol/L (3.3-5.1) Delta Chloride Level 108 mmol/L (96-108) Carbon Dioxide Level 30 mmol/L (22-29) High Anion Gap 10 (12-20) Low Blood Urea Nitrogen 14 mg/dL (9-16) Creatinine 0.83 mg/dL (0.5-1.4) Estimated Creatinine Clearance Calc Not Reportable Estimat Glomerular Filtration Rate > 60 Fasting Glucose 96 mg/dL (60-99) Estimated Average Glucose 111 mg/dL Hemoglobin A1c Percent 5.5 % (<6.0) Calcium Level 10.2 mg/dL (8.4-10.2) Total Bilirubin 1.4 mg/dL (0.0-1.0) High Aspartate Amino Transf (AST/SGOT) 54 U/L (5-31) High Alanine Aminotransferase (ALT/SGPT) 99 U/L (0-31) High Alkaline Phosphatase 94 U/L (39-117) Total Protein 7.2 g/dL (6.5-8.0) Albumin 4.8 g/dL (3.5-5.0) Triglycerides Level 112 mg/dL (<150) Cholesterol Level 160 mg/dL (<200) LDL Cholesterol, Calculated 71 mg/dL (<100) HDL Cholesterol 67 mg/dL (>40) 25-Hydroxy Vitamin D Total 73.0 ng/mL (>30) Thyroid Stimulating Hormone (TSH) 0.01 uIU/mL (0.32-4.0) Low Free Thyroxine 1.72 ng/dL (0.71-1.85) Coding Level of Care Code Est Pt Level 5 (08757) Complex EM visit Add On G2211 Diagnoses Acquired hypothyroidism E03.9 Hypothyroidism type: acquired Elevated LFTs R79.89 Alcohol use disorder, mild, in early remission F10.11 Primary hypertension I10 Hypertension type: primary hypertension Stented coronary artery Z95.5 PFO with atrial septal aneurysm Q21.12; I25.3 Mixed hyperlipidemia E78.2 Hyperlipidemia type: mixed hyperlipidemia Osteopenia M85.80 Vitamin D deficiency E55.9 Complex renal cyst N28.1 Assessment & Plan Assessment & Plan (1) Hypothyroid: Code(s): E03.9 - Hypothyroidism, unspecified Category: Medical Qualifiers: Hypothyroidism type: acquired Qualified Code(s): E03.9 - Hypothyroidism, unspecified (2) Elevated LFTs: Comment: no obvious concerns on abd u/s ,small cyst check fibrosis score and PT Code(s): R79.89 - Other specified abnormal findings of blood chemistry Category: Medical (3) Alcohol use disorder, mild, in early remission: Comment: 5.5 months sober! Code(s): F10.11 - Alcohol abuse, in remission Category: Medical (4) Hypertension: Code(s): I10 - Essential (primary) hypertension Category: Medical Qualifiers: Hypertension type: primary hypertension Qualified Code(s): I10 - Essential (primary) hypertension (5) Stented coronary artery: Comment: LAD stent 10/12/2024 Code(s): Z95.5 - Presence of coronary angioplasty implant and graft Category: Surgical (6) PFO with atrial septal aneurysm: Code(s): Q21.12 - Patent foramen ovale; I25.3 - Aneurysm of heart Category: Medical (7) Hyperlipidemia: Code(s): E78.5 - Hyperlipidemia, unspecified Category: Medical Qualifiers: Hyperlipidemia type: mixed hyperlipidemia Qualified Code(s): E78.2 - Mixed hyperlipidemia (8) Osteopenia: Onset Date: ~07/2024 Comment: 07/2024 Based on bone mineral density, and according to World Health Organization (WHO) criteria, the diagnosis is consistent with osteopenia. Code(s): M85.80 - Other specified disorders of bone density and structure, unspecified site Category: Medical (9) Vitamin D deficiency: Code(s): E55.9 - Vitamin D deficiency, unspecified Category: Medical (10) Complex renal cyst: Comment: on the R with MRI and US imaging, last done Summer 2023, cleared from future renal f/u, cyst is benign Code(s): N28.1 - Cyst of kidney, acquired Category: Medical Plan . Orders: Orders Liver Panel 6 Weeks E03.9 - Hypothyroidism, unspecified, R79.89 - Other specified abnormal findings of blood chemistry TSH reflex Free T4 6 Weeks E03.9 - Hypothyroidism, unspecified
[2025-01-18 15:00] VITALS: BP 110/68; PULSE 68; RESP 12; TEMP 36.8; O2SAT 96
--- OUTSIDE RECORDS SUMMARY | 2025-01-18 18:04 | XMS_ITS | Clinical Summary ---
Author Organization [facility] Address [address] [address] Phone Care Team Providers Care Data Analysis Intern Name Role Phone Pcp, Unknown Primary Care [...] EST): Well controlled by recent TSH from [facility] Essential hypertension 04/23/2020 Assessment & Plan (06/17/2023 [...] Type Department Care Team Description 12/12/2024 Refill [facility] [address] [place] [address] Kelly Narayan MD, MPH Medication Refill from [...] high school, GED, job training, learning the Luxembourgish language, technical skills, or developing parenting skills)? [...] EDT) TSH 1.27 0.27 - 4.20 uIU/mL [facility] Blood 09/10/2023 8:02 AM EDT 09/10/2023 8:15 AM EDT us Kelly Narayan MD, MPH LAB BLOOD ORDERABLES Final Result Performing Organization Address City/State/[facility] Co de Phone Number [address] [address] * (ABNORMAL) Lipid panel (06/18/2023 8:04 AM EST) HDL 77 mg/dL [facility] Comment: Interpretation <40 mg/dL: Low HDL cholesterol (major risk factor for CHD) Greater than or equal to 60 mg/dL: High HDL cholesterol ( negative risk factor for CHD) HDL - cholesterol is affected by a number of factors, e.g. smoking, excerise, hormones, sex and age. CHOLESTEROL 227 0 - 240 mg/dL [facility] TRIGLYCERIDES 171(H) 30 - 160 mg/dL [facility] LDL 116 50 - 129 mg/dL [facility] Comment: LDL levels in terms of risk for coronary heart disease: <100 mg/dL: Optimal 100-129 mg/dL: Near or above optimal 130-159 mg/dL: Borderline high 160-189 mg/dL: High >190 mg/dL: Very High CARDIAC RISK RATIO 2.9(L) 3.3 - 4.4 [facility] Blood 06/18/2023 8:04 AM EST 06/18/2023 8:10 AM EST Kelly Narayan MD, MPH LAB BLOOD ORDERABLES Final Result Performing Organization Address [facility] Co de Phone Number [address] [address] * MAMMOGRAPHY FOR RESULT ENTRY ONLY (01/23/2023) Kelly Narayan MD, MPH HEALTH MAINTENANCE F inal Result * Hepatitis C antibody, qualitative (01/22/2021 3:06 PM EDT) HCV NON-REACTIV E NON-REACTI VE [facility] Blood 01/22/2021 3:06 PM EDT 01/22/2021 3:20 PM EDT Result [facility] Kelly Narayan MD, MPH LAB BLOOD ORDERABLES Final Result Performing Organization Address [facility] de Phone Number [address] [address] * Pap Smear (04/30/2020 12:00 AM EST) 04/30/2020 05/01/2020 8:2 0 AM EST Narrative SEE NARRATIVE - 05/03/2020 1:35 PM EST [address] [address] Human Resources Technician: Selam Yung MD [employer] Cytology Report FINAL DIAGNOSIS A. PAP SMEAR [...] 52, 56, 58, 59, 66, 68) by [employer] HR-HPV analysis. Clinical correlation is advised. This HPV test was performed at [facility], [address] [place] [address]. This test has been FDA approved for [facility] cervical cytology specimens. The accuracy and precision of this test for all other specimen sources has been verified in the Cytopathology Laboratory of the [facility] and has not been cleared or approved by the U.S. Food and Drug Administration. Clinical correlation is advised. CLINICAL HISTORY Date of Last Menstrual Period: Not Provided Menstrual History: Alpa-Menopausal Bleeding, Post Coital Other Clinical Conditions: Screening Pap [employer] exam with abnormal findings: CERVICAL VS PROLAPSING ENDOMETRIAL POLYP PRESENT SPECIMEN SOURCE A: PAP SMEAR (SUREPATH) CE Patient Name: LISANDRA RO : 1965 (Age: 54) Sex: F [facility] Date of Collection: 04/30/2020 Date of Reported: 05/03/2020 13:35 Results to: Kelly Narayan MD, MPH us Kelly Narayan MD, MPH CYTOLOGY ORDERABLES Final Result SEE NARRATIVE * COLONOSCOPY FOR RESULT ENTRY ONLY (11/27/2017) Colonoscopy path tubular adenoma please see scanned report us Historical Provider HEALTH MAINTENANCE Final Result from Last 3 Months or Most Recently Relevant [place] [id number] BLUE CROSS OUT OF STATE PPO BLUE CROSS OUT OF STATE PPO BLUE CROSS OUT OF STATE PPO OUT [facility] [place] [address] OUT [facility] PPO BLUE CROSS OUT OF STATE PPO Member Subscriber Plan / Payer (Ef fective 2021-Present) Name:Lisandra Hyatt Relation to Subscriber:Spouse Name:JEFF HYATT Date of :1900 (Home) Address: [address] [place] [id number] Payer ID:[id number] (NAIC) Type:PPO Address: [address] [place], [place] BLUE CROSS OUT OF [facility] PPO Member Subscriber Plan / Payer ( fective 2021-Present) Name:Lisandra Hyatt Relation to Subscriber:Spouse Name:JEFF HYATT Date of :1900 (Home) Address: [address] [place], [place] Payer ID:[id number] (NAIC) Type:PPO Address: [address] [place], [place] BLUE CROSS OUT OF STATE PPO BLUE CROSS OUT [facility] PPO Care Teams Data Analysis Intern Relationship Specialty Start Date End Date Pcp, Unknown PCP - General 06/17/24 Additional Source Comments The information contained in this document represents components of the legal health record. It is not the complete legal health record.[facility]
--- OUTSIDE RECORDS SUMMARY | 2025-01-18 18:04 | XMS_ITS | Encounter Summary ---
Author Organization [facility] Address [address] [place] [address] Phone Care Team Providers Care Roll Cutter Name Role Phone Pcp, Unknown Primary Care Provider Unavailabl e Reason for Visit * Reason Comments Medication Refill Encounter Details Date Type Department Care Team (Late st Contact Info) Description 12/12/2024 Refill [facility] [address] [place] [address] Kelly Narayan MD, MPH [address] [place] [address] [email or web address] Medication Refill Social History Tobacco Use Types [...] high school, GED, job training, learning the Estonian language, technical skills, or developing parenting skills)? [...] documented as of this encounter Care Teams Roll Cutter Relationship Specialty Start Date End Date Pcp, Unknown PCP - General 06/17/24 documented as of this encounter Additional Source Comments The information contained in this document represents components of the legal health record. It is not the complete legal health record.[facility]
--- OUTSIDE RECORDS SUMMARY | 2025-01-18 18:04 | XMS_ITS | Patient Health Record ---
Author Organization [facility] Address [address] [place], [place] [id number] Care Team Providers Care Mobile Application Architect Name Role Phone Raleigh Morillo Unavailable Reason [...] Problem Pain of left knee joint (finding) (48805669800912 [id number]) Pain in left knee (M25.562) Active confirmed Problem Sprain of lateral collateral ligament of knee (24023585) Sprain of lateral collateral ligament of left knee, initial encounter (S83.422A) Active confirmed Plan Of Treatment Pending Test Test Name Order Date X ray : Knee, min 3 views, left 04/08/20 19 Insurance Providers Payer Name Payer Address Payer Phone Subscriber Number Group Number Insured Name Patient Relationship to Insured Coverage Start Date Coverage End Date R G - [id number] [address] [address] [place] [address] [id number] Licha Patricia Self - patient is the insured Medical (General) History Medical History History ICD Code Thyroidism hypertension High Cholesterol Surgical History Surgery Date(Month/Year) tubal ligation wisdom teeth extraction Hospitalization History Reason Date(Month/Year) see above surgery
--- OUTSIDE RECORDS SUMMARY | 2025-01-18 18:04 | XMS_ITS | Encounter Summary ---
Author Organization [employer] [facility], [facility] Address [address] [facility] [address] [place] [address] Phone Care Team Providers Care Regional Marketing Manager Name Role Phone Kelly Narayan MD, MPH Primary Care Provid er Pcp, Unknown Primary Care Provider Unavailabl e Encounter Details Date Type Department Care Team (Late st Contact Info) Description 10/12/2023 Procedure Pass [facility], Ct Scan - [address] [address] Social History Tobacco Use Types Packs/Day Years [...] high school, GED, job training, learning the South Sudanese language, technical skills, or developing parenting skills)? [...] documented as of this encounter Care Teams Regional Marketing Manager Relationship Specialty Start Date End Date Kelly Narayan MD, MPH [address] [address] [email or web address] PCP - General Family Medicine 03/29/20 06/16/24 Pcp, Unknown PCP - General 06/17/24 documented as of this encounter Additional Source Comments The information contained in this document represents components of the legal health record. It is not the complete legal health record.[facility]
== END 2025-01-18 15:38 | disposition home or self-care (01) ==
LOC: HO.HMCFM 14:53
PROVIDERS: PCP Nurse Practitioner Family; Visit Provider Nurse Practitioner Family
DX: E03.9 Hypothyroidism, unspecified (principal); R79.89 Other specified abnormal findings of blood chemistry; F10.11 Alcohol abuse, in remission; I10 Essential (primary) hypertension; Z95.5 Presence of coronary angioplasty implant and graft; Q21.12 Patent foramen ovale; I25.3 Aneurysm of heart; E78.2 Mixed hyperlipidemia; M85.80 Other specified disorders of bone density and structure, unspecified site; E55.9 Vitamin D deficiency, unspecified; N28.1 Cyst of kidney, acquired

== ENCOUNTER 2025-01-20 11:54 | Outpatient (AMB) | payer BC, SELFPAY ==
--- NOTE | 2025-01-20 11:54 | MHC.OFFVIS ---
Vital Signs 01/20/25 11:57 Height 5 ft 1 in Weight 132 lb BMI 24.9 BP 124/68 Blood Pressure Location Rt brachial Position Sitting Pulse 64 Pulse Source Pulse Oximeter Pulse Oximetry (%) 99 Oxygen Delivery Method Room Air Intake Visit Reasons: Elevated LFTs. PCP req sooner appt Intake Note: New pt for mgmt of elevated LFTs. Pt likely due for recall colo. Last in 2017 w/ Dr. Ahumada. CC; Pt denies any GI sx or concerns at this time. Fast Food Supervisor Required: No Accompanied by: Self / Same As Patient Allergies No Known Allergies Allergy (Mild, Verified 01/18/25 14:59) NONE HPI HPI Elevated LFTs. PCP req sooner appt: Details: 59-year-old female with past medical history transaminitis, osteopenia, menopause, scalp psoriasis, hypertension, hyperlipidemia, hypothyroidism, angina pectoralis due to CAD, stented coronary artery in October of 2024 is here today for pre colonoscopy screening.? Patient was sent to us by her PCP.? Patient was also found to have transaminitis. Repeat liver function tests are improving. Patient had normal liver ultrasound with elastography. Normal echogenicity. In October patient had episode of shortness of breath and chest pain. Patient will was sent to [facility] for cardiac catheterization. Drug-eluting stent placed. Currently she is on Brilinta. She has appointment with Cardiology in February. Last colonoscopy in [address] Ahumada. Patient denies any gastrointestinal symptoms in the past or at present.? ? Denies history of difficulty with sedation or anesthesia in the past.? Negative for history of sleep apnea.? Denies any history of renal, pulmonary, or hepatic disease.?? No history of infectious? diseases like hepatitis A, B, C, HIV or tuberculosis.? Currently patient is on aspirin and Brilinta [facility] Medical History Abnormal stress test Elevated LFTs Liver lesion Scoliosis High cholesterol Hypertension Surgical History H/O heart artery stent (~10/2024) History of colonoscopy (~2017) History of wisdom tooth extraction History of tubal ligation Family History Father High cholesterol HTN (hypertension) CVD (cardiovascular disease) Mother Breast cancer Colon cancer Hyperlipidemia Paternal Grandfather Colon cancer Paternal Grandmother No problems noted. Social History Household Members: Spouse Housing: House Are you a primary spiritual care coordinator to a significant other at home: No Do you presently have visiting nurse or other home services: No Alcohol intake: former Patient Tobacco Use Status: Never used Tobacco e-Cigarette/Vaping Use: Never Used service: No Current occupational status: employed Current occupation: [employer] Current occupational exposures/hazards: No Cognitive needs: No Hearing needs: No Vision needs: Yes (wear glasses) Review of Systems Const Denies weight gain and Denies weight loss ENT Reports no additional complaints, Denies dysphagia and Denies odynophagia Card Reports no additional complaints Resp Reports no additional complaints GI Denies abdominal pain, Denies belching, Denies melena, Denies bloating, Denies change in bowel habits, Denies dysphagia, Denies excessive flatus, Denies dyspepsia, Denies heartburn, Denies diarrhea, Denies loose stools, Denies nausea, Denies odynophagia and Denies vomiting Musc Reports no additional complaints Neuro Reports no additional complaints Psych Reports no additional complaints Endo Reports no additional complaints Physical Exam Vital Signs: Last Vital Signs Pulse 64 01/20/25 11:57 BP 124/68 01/20/25 11:57 Pulse Ox 99 01/20/25 11:57 Oxygen Delivery Method Room Air 01/20/25 11:57 BMI result Body Mass Index 24.9 Const General: healthy appearing, no acute distress and well developed Nutritional Appearance: well nourished Orientation/consciousness: patient oriented x3 Resp Effort & Inspection: normal respiratory effort, able to speak in complete sentences, no tracheal deviation and symmetric chest movement Auscultation: clear to auscultation bilaterally Cardio Rate: regular rate GI Inspection: Yes normal to inspection and No distended Palpation (GI): Soft to palpation, not firm, nontender and No hepatosplenomegaly present Auscultation: normal bowel sounds General: Yes no CVA tenderness Back/Spine/Pelvis Back: no CVA tenderness Skin General skin exam: elasticity normal, turgor normal and dry skin Neuro General: patient oriented x3 Psych Appearance: grossly normal Mental Status: mental status grossly normal Results Reviewed Results Reviewed: Laboratory Tests 12/16/24 01/12/25 07:42 07:59 AST 67 H 54 H ALT 127 H 99 H Alkaline Phosphatase 120 H 94 Liver Fibrosis Stage F0 ABDOMINAL ULTRASOUND WITH LIVER ELASTOGRAPHY FINDINGS: PANCREAS: The visualized pancreatic head and body are normal in appearance. The remainder of the pancreas is obscured from visualization by the overlying bowel gas. LIVER: The liver demonstrates normal size, contour and echogenicity. No focal lesion or intrahepatic biliary duct dilatation. The right lobe measures 14 cm in length. The left lobe measures 6 cm in length. The main portal vein is patent with a normal direction of flow and a continuous venous waveform. Shear wave elastography provides a median stiffness of 1.4 m/s (reference: normal median stiffness is 0.81 - 1.22 m/s). The IQR/median stiffness to assess sampling precision is 0.04 (reference: optimal IQR/median stiffness is under 0.3). GALLBLADDER: The gallbladder is physiologically distended without evidence of stones, sludge, polyps, wall thickening or pericholecystic fluid. COMMON BILE DUCT: Normal in caliber measuring 0.4 cm in diameter. RIGHT KIDNEY: There is a complex cyst with thin internal septation measuring 7.1 x 5.5 x 7.5 cm previously 6.7 x 6.6 x 6.0 cm. The kidney measures 13 cm in maximum dimension. FREE FLUID: None seen. US/US abdomen schwarz w elastography IMPRESSION: Enlarging septated cystic mass in the right kidney. Follow-up MRI abdomen/renal without and with IV contrast. Unremarkable liver ultrasound. 2. Elastography: In the absence of other known clinical signs, rules out compensated advanced chronic liver disease. Assessment & Plan Assessment & Plan (1) Transaminitis: Code(s): R74.01 - Elevation of levels of liver transaminase levels Plan: Most likely related to statin. Patient had normal ultrasound. Liver enzymes are trending down. If patient will continue to have increase in enzymes she may benefit from Repatha. Can always try lower dose of statin. Verify with Cardiology (2) Screen for colon cancer: Code(s): Z12.11 - Encounter for screening for malignant neoplasm of colon Plan Patient denies any GI, cardiac or respiratory symptoms.? Denies any issues with anesthesia in the past.? Denies any history of sleep apnea.? No history infectious diseases in the past or present.? Patient is on Brilinta and aspirin. Unable to interrupt Brilinta therapy for while. Most likely for at least 8 months. Patient has appointment with Cardiology in February. Will ask for risk stratification and when is the best time for patient to have the procedure. If 8 months uninterrupted therapy with [facility] we may schedule her for June.? Currently patient is not complaining of any shortness of breath, chest pain, presyncope, syncope. Patient denies melena, hematochezia, unintentional weight loss or ribbon like stools.? Discussed at length the pre-procedure,? prep, diet & medications as well as what to expect prior, during and after the procedure.?? Stressed the importance of good bowel prep.? Recommended the use of Vaseline or Calmoseptine OTC & baby wipes with bowel movements to promote comfort.? ?Patient verbalizes understanding and agrees to plan of care.? She was given the opportunity to ask questions and all questions answered.? We will see her after the procedure.? Medications: New bisacodyl (Dulcolax (bisacodyl)) take 4 tabs at noon the day before your colonoscopy 20 mg (4 x 5 mg) PO ONCE 4 tabs 0RF constipation 1 day Z12.11 - Encounter for screening for malignant neoplasm of colon polyethylene glycol 3350 (Miralax) As directed by gastro[facility]ology department at [facility] 238 grams PO ONCE 238 grams 0RF Z12.11 - Encounter for screening for malignant neoplasm of colon Coding Level of Care Code New Pt Level 3 (65544) Diagnoses Transaminitis R74.01 Screen for colon cancer Z12.11 Time Spent (min) 40 Comment 30 minutes spent with patient and additional 10 minutes spent reviewing her records
[2025-01-20 11:57] VITALS: BP 124/68; PULSE 64; O2SAT 99; BMI 24.9
--- OUTSIDE RECORDS SUMMARY | 2025-01-20 14:22 | XMS_ITS | Encounter Summary ---
Author Organization [facility] Address [address] [facility] [address] [place] [address] Phone Care Team Providers Care Multicut Line Operator Name Role Phone Pcp, Unknown Primary Care Provider Unavailabl e Reason for Visit * Reason Comments Medication Refill Encounter Details Date Type Department Care Team (Late st Contact Info) Description 12/12/2024 Refill [facility] [address] [facility] [address] [place] [address] Kelly Narayan MD, MPH [address] [facility] [address] [place] [address] [email or web address] Medication Refill Social History Tobacco Use Types [...] high school, GED, job training, learning the Mongolian language, technical skills, or developing parenting skills)? [...] documented as of this encounter Care Teams Multicut Line Operator Relationship Specialty Start Date End Date Pcp, Unknown PCP - General 06/17/24 documented as of this encounter Additional Source Comments The information contained in this document represents components of the legal health record. It is not the complete legal health record.[facility]
--- OUTSIDE RECORDS SUMMARY | 2025-01-20 14:22 | XMS_ITS | Clinical Summary ---
Author Organization [employer] [facility] Address [address] [address] Phone Care Team Providers Care Roustabout Name Role Phone Pcp, Unknown Primary Care [...] EST): Well controlled by recent TSH from [facility] Essential hypertension 04/23/2020 Assessment & Plan (06/17/2023 [...] Type Department Care Team Description 12/12/2024 Refill [facility] [place] [facility] [address] [facility] [facility] [address] [place] [address] Kelly Narayan MD, MPH Medication Refill from [...] high school, GED, job training, learning the Italian language, technical skills, or developing parenting skills)? [...] EDT) TSH 1.27 0.27 - 4.20 uIU/mL [facility] Blood 09/10/2023 8:02 AM EDT 09/10/2023 8:15 AM EDT us Kelly Narayan MD, MPH LAB BLOOD ORDERABLES Final Result Performing Organization Address City/State/[facility] Co de Phone Number [address] [address] * (ABNORMAL) Lipid panel (06/18/2023 8:04 AM EST) HDL 77 mg/dL [facility] Comment: Interpretation <40 mg/dL: Low HDL cholesterol (major risk factor for CHD) Greater than or equal to 60 mg/dL: High HDL cholesterol ( negative risk factor for CHD) HDL - cholesterol is affected by a number of factors, e.g. smoking, excerise, hormones, sex and age. CHOLESTEROL 227 0 - 240 mg/dL [facility] TRIGLYCERIDES 171(H) 30 - 160 mg/dL [facility] LDL 116 50 - 129 mg/dL [facility] Comment: LDL levels in terms of risk for coronary heart disease: <100 mg/dL: Optimal 100-129 mg/dL: Near or above optimal 130-159 mg/dL: Borderline high 160-189 mg/dL: High >190 mg/dL: Very High CARDIAC RISK RATIO 2.9(L) 3.3 - 4.4 C [facility] Blood 06/18/2023 8:04 AM EST 06/18/2023 8:10 AM EST Kelly Narayan MD, MPH LAB BLOOD ORDERABLES Final Result Performing Organization Address [facility] Co de Phone Number [address] [address] * MAMMOGRAPHY FOR RESULT ENTRY ONLY (01/23/2023) Kelly Narayan MD, MPH HEALTH MAINTENANCE F inal Result * Hepatitis C antibody, qualitative (01/22/2021 3:06 PM EDT) HCV NON-REACTIV E NON-REACTI VE [facility] Blood 01/22/2021 3:06 PM EDT 01/22/2021 3:20 PM EDT Result [facility] Kelly Narayan MD, MPH LAB BLOOD ORDERABLES Final Result Performing Organization Address [facility] de Phone Number [address] [address] * Pap Smear (04/30/2020 12:00 AM EST) 04/30/2020 05/01/2020 8:2 0 AM EST Narrative SEE NARRATIVE - 05/03/2020 1:35 PM EST [address] [address] Director Employee Safety And Health: Selam Yung MD PERSONNEL SPECIALIST Cytology Report FINAL DIAGNOSIS A. PAP SMEAR [...] 52, 56, 58, 59, 66, 68) by [employer] HR-HPV analysis. Clinical correlation is advised. This HPV test was performed at [facility], [address] [place] [address]. This test has been FDA approved for SurePath cervical cytology specimens. The accuracy and precision of this test for all other specimen sources has been verified in the Cytopathology Laboratory of the [facility] and has not been cleared or approved by the U.S. Food and Drug Administration. Clinical correlation is advised. CLINICAL HISTORY Date of Last Menstrual Period: Not Provided Menstrual History: Alpa-Menopausal Bleeding, Post Coital Other Clinical Conditions: Screening Pap PERSONNEL SPECIALIST exam with abnormal findings: CERVICAL VS PROLAPSING ENDOMETRIAL POLYP PRESENT SPECIMEN SOURCE A: PAP SMEAR (SUREPATH) CE Patient Name: LISANDRA RO : 1965 (Age: 54) Sex: F Institution: [facility] Location: [facility] [...] Most Recently [place] [id number] BLUE CROSS OUT OF STATE PPO BLUE CROSS OUT OF STATE PPO BLUE CROSS OUT OF STATE PPO OUT [facility] [place] [address] OUT [facility] P[facility] BLUE CROSS OUT OF STATE PPO Member Subscriber Plan / Payer (Ef fective 2021-Present) Name:Lisandra Hyatt Relation to Subscriber:Spouse Name:JEFF HYATT Date of :1900 (Home) Address: [address] [place] [address] Payer ID:[id number] (NAIC) Type:PPO Address: [address] [place], [place] BLUE CROSS OUT OF [facility] PPO Member Subscriber Plan / Payer ( fective 2021-Present) Name:Lisandra Hyatt Relation to Subscriber:Spouse Name:JEFF HYATT Date of :1900 (Home) Address: [address] [place], [place] Payer ID:[id number] (NAIC) Type:PPO Address: [address] [place], [place] BLUE CROSS OUT OF STATE PPO BLUE CROSS OUT [facility] PPO Care Teams Roustabout Relationship Specialty Start Date End Date Pcp, Unknown PCP - General 06/17/24 Additional Source Comments The information contained in this document represents components of the legal health record. It is not the complete legal health record.[facility]
--- OUTSIDE RECORDS SUMMARY | 2025-01-20 14:22 | XMS_ITS | Encounter Summary ---
Author Organization [employer] [facility] Address [address] [facility] [address] [place] [address] Phone Care Team Providers Care State Fire Marshal Name Role Phone Kelly Narayan MD, MPH Primary Care Provid er Pcp, Unknown Primary Care Provider Unavailabl e Encounter Details Date Type Department Care Team (Late st Contact Info) Description 10/12/2023 Procedure Pass [facility], Ct Scan - [address] [address] Social History Tobacco Use Types Packs/Day Years [...] high school, GED, job training, learning the [place] Islander language, technical skills, or developing parenting skills)? [...] documented as of this encounter Care Teams State Fire Marshal Relationship Specialty Start Date End Date Kelly Narayan MD, MPH [address] [address] [email or web address] PCP - General Family Medicine 03/29/20 06/16/24 Pcp, Unknown PCP - General 06/17/24 documented as of this encounter Additional Source Comments The information contained in this document represents components of the legal health record. It is not the complete legal health record.[facility]
--- OUTSIDE RECORDS SUMMARY | 2025-01-20 14:22 | XMS_ITS | Patient Health Record ---
Author Organization [employer] [facility] Address [address] [place], [place] [id number] Care Team Providers Care Customer Operations Associate Name Role Phone Raleigh Morillo Unavailable Reason [...] Problem Pain of left knee joint (finding) (23283695327804 7) Pain in left knee (M25.562) Active confirmed Problem Sprain of lateral collateral ligament of knee (64855312) Sprain of lateral collateral ligament of left knee, initial encounter (S83.422A) Active confirmed Plan Of Treatment Pending Test Test Name Order Date X ray : Knee, min 3 views, left 04/08/20 19 Insurance Providers Payer Name Payer Address Payer Phone Subscriber Number Group Number Insured Name Patient Relationship to Insured Coverage Start Date Coverage End Date R G - [address] [address] [place] [id number] Licha Patricia Self - patient is the insured Medical (General) History Medical History History ICD Code Thyroidism hypertension High Cholesterol Surgical History Surgery Date(Month/Year) tubal ligation wisdom teeth extraction Hospitalization History Reason Date(Month/Year) see above surgery
== END 2025-01-20 12:35 | disposition home or self-care (01) ==
PROVIDERS: PCP Nurse Practitioner Family; Visit Provider Nurse Practitioner Family
DX: Z01.818 Encounter for other preprocedural examination (principal); Z12.11 Encounter for screening for malignant neoplasm of colon; R74.01 Elevation of levels of liver transaminase levels
CPT/HCPCS: S0285

== ENCOUNTER 2025-01-29 16:49 | Outpatient (REF) | payer BC, SELFPAY ==
--- NOTE | ~2025-01-29 | MR_ITS ---
EXAMINATION: MR ABDOMEN WITHOUT THEN WITH IV CONTRAST HISTORY: N28.1 - Cyst of kidney, acquired COMPARISON: Correlation is made with an abdominal ultrasound dated 12/30/2024. TECHNIQUE: Axial in and out of phase T1-weighted gradient echo, axial diffusion weighted, and axial and coronal HASTE T2 with fat saturation images were obtained through the abdomen. Subsequently, fat suppressed axial and coronal T1-weighted images were obtained after the intravenous administration of 6 mL Gadavist. FINDINGS: Liver: There is no loss of signal intensity in the liver on opposed phase imaging to suggest steatosis. There is no enhancing liver mass. The hepatic and portal veins are patent. There is no intrahepatic biliary dilatation. Gallbladder/biliary tree: No gallstones are identified. The common bile duct is normal in caliber. No intraluminal filling defects are identified to suggest choledocholithiasis. Spleen: There is a subcentimeter cyst in the spleen. Pancreas: The pancreas is unremarkable. There is no enhancing pancreatic mass. The pancreatic duct is normal in caliber. Adrenals: The adrenal glands are unremarkable. Kidneys: There is a 7.1 x 7.3 x 6.5 cm lobulated cyst at the lower pole of the right kidney. There may be a thin septation within the cyst. No enhancing solid components are identified. The left kidney is unremarkable. There is no hydronephrosis. Lymph nodes: There is no retroperitoneal lymphadenopathy in the upper abdomen. Fluid: There is no ascites in the upper abdomen. Visualized bowel: The visualized small and large bowel loops are unremarkable in appearance. Visualized bones: There is moderate to severe levoscoliosis. The visualized bones demonstrate normal marrow signal intensity. MR/MR abdomen wo/w con IMPRESSION: 7.1 x 7.3 x 6.5 cm lobulated cyst at the lower pole of the right kidney. There are no suspicious findings. Electronically signed by: Hoang Isaac MD 01/30/2025 08:18 AM EDT
--- OUTSIDE RECORDS SUMMARY | 2025-01-29 16:53 | XMS_ITS | Clinical Summary ---
Author Organization [employer] [facility] Address [address] [address] Phone Care Team Providers Care Upholstery Department Supervisor Name Role Phone Pcp, Unknown Primary Care [...] Well controlled by recent TSH from [facility] Essential hypertension 04/23/2020 Assessment & Plan (06/17/2023 [...] Type Department Care Team Description 12/12/2024 Refill [facility] [place] [facility] [address] [facility] [address] [place] [address] Kelly Narayan MD, MPH Medication Refill from [...] high school, GED, job training, learning the Persian language, technical skills, or developing parenting skills)? [...] EDT) TSH 1.27 0.27 - 4.20 uIU/mL [facility] Blood 09/10/2023 8:02 AM EDT 09/10/2023 8:15 AM EDT us Kelly Narayan MD, MPH LAB BLOOD ORDERABLES Final Result Performing Organization Address City/State/[facility] Co de Phone Number [address] [address] * (ABNORMAL) Lipid panel (06/18/2023 8:04 AM EST) HDL 77 mg/dL [facility] Comment: Interpretation <40 mg/dL: Low HDL cholesterol (major risk factor for CHD) Greater than or equal to 60 mg/dL: High HDL cholesterol ( negative risk factor for CHD) HDL - cholesterol is affected by a number of factors, e.g. smoking, excerise, hormones, sex and age. CHOLESTEROL 227 0 - 240 mg/dL [facility] TRIGLYCERIDES 171(H) 30 - 160 mg/dL [facility] LDL 116 50 - 129 mg/dL [facility] Comment: LDL levels in terms of risk for coronary heart disease: <100 mg/dL: Optimal 100-129 mg/dL: Near or above optimal 130-159 mg/dL: Borderline high 160-189 mg/dL: High >190 mg/dL: Very High CARDIAC RISK RATIO 2.9(L) 3.3 - 4.4 C [facility] Blood 06/18/2023 8:04 AM EST 06/18/2023 8:10 AM EST Kelly Narayan MD, MPH LAB BLOOD ORDERABLES Final Result Performing Organization Address [facility] Co de Phone Number [address] [address] * MAMMOGRAPHY FOR RESULT ENTRY ONLY (01/23/2023) Kelly Narayan MD, MPH HEALTH MAINTENANCE F inal Result * Hepatitis C antibody, qualitative (01/22/2021 3:06 PM EDT) HCV NON-REACTIV E NON-REACTI VE [facility] Blood 01/22/2021 3:06 PM EDT 01/22/2021 3:20 PM EDT Result [facility] Kelly Narayan MD, MPH LAB BLOOD ORDERABLES Final Result Performing Organization Address [facility] de Phone Number [address] [address] * Pap Smear (04/30/2020 12:00 AM EST) 04/30/2020 05/01/2020 8:2 0 AM EST Narrative SEE NARRATIVE - 05/03/2020 1:35 PM EST [address] [address] Senior Geotechnical Engineer: Selam Yung MD LAW INSTRUCTOR Cytology Report FINAL DIAGNOSIS A. PAP SMEAR [...] 52, 56, 58, 59, 66, 68) by [employer] HR-HPV analysis. Clinical correlation is advised. This HPV test was performed at [facility], [address] [place] [address]. This test has been FDA approved for SurePath cervical cytology specimens. The accuracy and precision of this test for all other specimen sources has been verified in the Cytopathology Laboratory of the [facility] and has not been cleared or approved by the U.S. Food and Drug Administration. Clinical correlation is advised. CLINICAL HISTORY Date of Last Menstrual Period: Not Provided Menstrual History: Alpa-Menopausal Bleeding, Post Coital Other Clinical Conditions: Screening Pap LAW INSTRUCTOR exam with abnormal findings: CERVICAL VS PROLAPSING ENDOMETRIAL POLYP PRESENT SPECIMEN SOURCE A: PAP SMEAR (SUREPATH) CE Patient Name: LISANDRA RO : 1965 (Age: 54) Sex: F [facility] Date of Collection: 04/30/2020 Date of Reported: 05/03/2020 13:35 Results to: Kelly Narayan MD, MPH us Kelly Narayan MD, MPH CYTOLOGY ORDERABLES Final Result SEE NARRATIVE * COLONOSCOPY FOR RESULT ENTRY ONLY (11/27/2017) Colonoscopy path tubular adenoma please see scanned report us Historical Provider HEALTH MAINTENANCE Final Result from Last 3 Months or Most Recently [id number] BLUE CROSS OUT OF STATE PPO BLUE CROSS OUT OF STATE PPO BLUE CROSS OUT OF STATE PPO OUT [facility] [place] [address] [address] [place] [address] OUT [facility] PPO BLUE CROSS OUT OF STATE PPO Member Subscriber Plan / Payer (Ef fective 2021-Present) Name:Lisandra Hyatt Relation to Subscriber:Spouse Name:JEFF HYATT Date of :1900 (Home) Address: [address] [place] [address] Payer ID:[id number] (NAIC) Type:PPO Address: [address] [place], [place] BLUE CROSS OUT OF [facility] PPO Member Subscriber Plan / Payer ( fective 2021-Present) Name:Lisandra Hyatt Relation to Subscriber:Spouse Name:JEFF HYATT Date of :1900 (Home) Address: [address] [place], [place] Payer ID:[id number] (NAIC) Type:PPO Address: [address] [place], [place] BLUE CROSS OUT OF STATE PPO BLUE CROSS OUT [facility] PPO Care Teams Upholstery Department Supervisor Relationship Specialty Start Date End Date Pcp, Unknown PCP - General 06/17/24 Additional Source Comments The information contained in this document represents components of the legal health record. It is not the complete legal health record.[facility]
--- OUTSIDE RECORDS SUMMARY | 2025-01-29 16:53 | XMS_ITS | Encounter Summary ---
Author Organization [facility] Address [address] [place] [address] Phone Care Team Providers Care Template Maker Name Role Phone Pcp, Unknown Primary Care Provider Unavailabl e Reason for Visit * Reason Comments Medication Refill Encounter Details Date Type Department Care Team (Late st Contact Info) Description 12/12/2024 Refill [facility] Primary Care [address] [facility] [address] [place] [address] Kelly Narayan MD, MPH [address] [facility] [address] [place] [address] [email or web address] Medication Refill Social History Tobacco Use Types [...] high school, GED, job training, learning the Canadian language, technical skills, or developing parenting skills)? [...] documented as of this encounter Care Teams Template Maker Relationship Specialty Start Date End Date Pcp, Unknown PCP - General 06/17/24 documented as of this encounter Additional Source Comments The information contained in this document represents components of the legal health record. It is not the complete legal health record.[facility]
--- OUTSIDE RECORDS SUMMARY | 2025-01-29 16:53 | XMS_ITS | Encounter Summary ---
Author Organization [employer] [facility] Address [address] [facility] [address] [place] [address] Phone Care Team Providers Care Boat Operator Name Role Phone Kelly Narayan MD, MPH Primary Care Provid er Pcp, Unknown Primary Care Provider Unavailabl e Encounter Details Date Type Department Care Team (Late st Contact Info) Description 10/12/2023 Procedure Pass [facility], Ct Scan - [address] [address] Social History Tobacco Use Types Packs/Day Years [...] high school, GED, job training, learning the Peruvian language, technical skills, or developing parenting skills)? [...] documented as of this encounter Care Teams Boat Operator Relationship Specialty Start Date End Date Kelly Narayan MD, MPH [address] [address] [email or web address] PCP - General Family Medicine 03/29/20 06/16/24 Pcp, Unknown PCP - General 06/17/24 documented as of this encounter Additional Source Comments The information contained in this document represents components of the legal health record. It is not the complete legal health record.[facility]
--- OUTSIDE RECORDS SUMMARY | 2025-01-29 16:54 | XMS_ITS | Patient Health Record ---
Author Organization [employer] [facility] Address [address] [place], [place] [address] Care Team Providers Care Residential Treatment Counselor Name Role Phone Raleigh Morillo Unavailable [phone] Reason For Referral No Information Medications Medication [...] Problem Pain of left knee joint (finding) (91188175595836 7) Pain in left knee (M25.562) Active confirmed Problem Sprain of lateral collateral ligament of knee (67952722) Sprain of lateral collateral ligament of left knee, initial encounter (S83.422A) Active confirmed Plan Of Treatment Pending Test Test Name Order Date X ray : Knee, min 3 views, left 04/08/20 19 Insurance Providers Payer Name Payer Address Payer Phone Subscriber Number Group Number Insured Name Patient Relationship to Insured Coverage Start Date Coverage End Date R G - [address] [address] [place] [address] [phone] [id number] Licha Patricia Self - patient is the insured Medical (General) History Medical History History ICD Code Thyroidism hypertension High Cholesterol Surgical History Surgery Date(Month/Year) tubal ligation wisdom teeth extraction Hospitalization History Reason Date(Month/Year) see above surgery
== END 2025-01-29 16:50 | disposition home or self-care (01) ==
LOC: HO.MRI 16:49
PROVIDERS: PCP Nurse Practitioner Family; Visit Provider Nurse Practitioner Family
DX: N28.1 Cyst of kidney, acquired (principal)
CPT/HCPCS: 74183; A9585

== ENCOUNTER → 2025-01-29 16:49 | Outpatient (BNV) | payer BC, SELFPAY | PROVIDERS: PCP Nurse Practitioner Family; Visit Provider Radiology Diagnostic Radiology | DX: N28.1 Cyst of kidney, acquired (principal) | CPT/HCPCS: 74183 ==

== ENCOUNTER 2025-02-08 10:09 | Outpatient (AMB) | payer BC, SELFPAY ==
[2025-02-08 10:12] VITALS: BP 112/62; PULSE 61; BMI 25.2
--- NOTE | 2025-02-08 10:12 | MHC.OFFVIS ---
Vital Signs 02/08/25 10:12 Height 5 ft 1 in Weight 133 lb 3 oz BMI 25.2 BP 112/62 Blood Pressure Location Lt brachial Position Sitting Pulse 61 Pulse Source Monitor Intake Visit Reasons: 3 mth f/up/ GI card clearance Accompanied by: Self / Same As Patient Allergies No Known Allergies Allergy (Mild, Verified 02/08/25 10:15) NONE Medication List - Last Reconciled 02/08/25 by Bin Melendez MD aspirin (Adult Aspirin Regimen) 81 mg PO DAILY betamethasone valerate 0.12% 1 appl topical BID bisacodyl (Dulcolax (bisacodyl)) 20 mg (4 x 5 mg) PO ONCE 1 day levothyroxine 75 mcg PO DAILY multivitamin 1 tab PO DAILY nitroglycerin 0.3 mg sublingual Q5M PRN polyethylene glycol 3350 (Miralax) 238 grams PO ONCE rosuvastatin 40 mg PO DAILY 90 days thiamine HCl (vitamin B1) (Vitamin B-1) 100 mg PO DAILY ticagrelor 90 mg PO BID HPI Comments Details: 59-year-old female with background history of hypothyroidism, hyperlipidemia and hypertension presenting with progressive dyspnea on exertion over the last year. She underwent stress testing which was abnormal and showed mid to distal LAD territory ischemia. She is saying that she is getting short of breath with short distance walking. 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 She is denying any chest discomfort right now but has had chest pains radiating to the back a few times in the past and she came to the emergency department and was ruled out. She was drinking heavily but has been sober for approximately 2 months at this point. Labs, EKG and imaging reviewed. 02/08/2025: She is here for follow-up. She was taken for cardiac catheterization where severe LAD stenosis was noted and she had drug-eluting stent placed. She has done well since then. No chest pains or shortness of breath. She has been physically active and overall progressing at cardiac rehabilitation. Blood pressure is well controlled. She was noticed to have mildly elevated LFTs and there is question that is statins maybe causing that. She was drinking but she has not been drinking for last 6 months. She is due to repeat liver function testing to see if this is improving. [facility] Medical History Abnormal stress test Elevated LFTs Liver lesion Scoliosis High cholesterol Hypertension Surgical History H/O heart artery stent (~10/2024) History of colonoscopy (~2018) History of wisdom tooth extraction History of tubal ligation Family History Father High cholesterol HTN (hypertension) CVD (cardiovascular disease) Mother Breast cancer Colon cancer Hyperlipidemia Paternal Grandfather Colon cancer Paternal Grandmother No problems noted. Social History Household Members: Spouse Housing: House Are you a primary resident care associate to a significant other at home: No Do you presently have visiting nurse or other home services: No 75 years or older and lives alone: No Alcohol intake: former Patient Tobacco Use Status: Never used Tobacco e-Cigarette/Vaping Use: Never Used service: No Current occupational status: employed Current occupation: [employer] Current occupational exposures/hazards: No Cognitive needs: No Hearing needs: No Vision needs: Yes (wear glasses) Review of Systems Const Denies daytime sleepiness, Denies difficulty sleeping, Denies snoring, Denies stops breathing during sleep and Denies weakness Card Denies chest pain, Denies rapid heart rate, Denies irregular heart rhythm, Denies claudication, Denies leg edema, Denies lightheadedness, Denies palpitations, Denies dyspnea, Denies dyspnea on exertion, Denies orthopnea, Denies paroxysmal nocturnal dyspnea and Denies slow heart rate Resp Denies cough, Denies dyspnea, Denies dyspnea on exertion and Denies snoring GI Reports no additional complaints, Denies hematochezia, Denies change in stool character and Denies dyspepsia Musc Denies abnormal gait, Denies muscle weakness and Denies numbness Neuro Denies abnormal gait, Denies numbness and Denies weakness Endo Denies palpitations Physical Exam Vital Signs: Last Vital Signs Pulse 61 02/08/25 10:12 BP 112/62 02/08/25 10:12 BMI result Body Mass Index 25.2 GENERAL APPEARANCE: in no acute distress, pleasant. NECK: no carotid bruit, no jugular venous distention. SKIN: no suspicious lesions, warm and dry. HEART: no murmurs, regular rate and rhythm. LUNGS: clear to auscultation bilaterally. ABDOMEN: soft, nontender. EXTREMITIES: no edema. PERIPHERAL PULSES: equal. NEUROLOGIC: No gross deficits, AAO X 3 Office Procedures EKG Details: Sinus rhythm 61 beats per minute, nonspecific T-wave changes, QTC 555 milliseconds. [id number], Complete Assessment & Plan Assessment & Plan (1) Hypertension: Code(s): I10 - Essential (primary) hypertension Category: Medical Qualifiers: Hypertension type: primary hypertension Qualified Code(s): I10 - Essential (primary) hypertension (2) Stented coronary artery: Comment: LAD stent 10/12/2024 Code(s): Z95.5 - Presence of coronary angioplasty implant and graft Category: Surgical Plan [age] year female who is here for follow-up. She has known history of coronary disease and had LAD PCI and has been doing well since then. She is on aspirin and ticagrelor. No bleeding concerns. Doing cardiac rehabilitation and progressing there. Blood pressure control is good. She has residual disease in the RCA but currently she has no symptoms and I think we can medically manage her for now. If she develops any concerning symptoms in the future then she may need repeat angiography and PCI to RCA. Previous PFO with atrial septal aneurysm. She is on dual antiplatelet therapy currently. No history of stroke. She is low to intermediate risk for perioperative complications for colonoscopy. She should get it done after May 2025. Follow-up in 6 months. Thank you for allowing me to participate in the care of your patient. Please feel free to contact me if you have any questions. Medications: Changed From levothyroxine 150 mcg PO DAILY 90 tabs 2RF To levothyroxine 75 mcg PO DAILY Coding Level of Care Code Est Pt Level 4 (39955) Diagnoses Primary hypertension I10 Hypertension type: primary hypertension Stented coronary artery Z95.5 CPT Codes EKG - CPT: 38451-Bxipvryqlvrhcofdw, Complete ([id number])
--- OUTSIDE RECORDS SUMMARY | 2025-02-08 11:24 | XMS_ITS | Encounter Summary ---
Author Organization [employer] [facility] Address [address] [facility] [address] [place] [address] Phone Care Team Providers Care Educational Aide Name Role Phone Kelly Narayan MD, MPH Primary Care Provid er Pcp, Unknown Primary Care Provider Unavailabl e Encounter Details Date Type Department Care Team (Late st Contact Info) Description 10/12/2023 Procedure Pass [facility], Ct Scan - [address] [address] Social History Tobacco Use Types Packs/Day Years [...] high school, GED, job training, learning the Jamaican language, technical skills, or developing parenting skills)? [...] documented as of this encounter Care Teams Educational Aide Relationship Specialty Start Date End Date Kelly Narayan MD, MPH [address] [address] [email or web address] PCP - General Family Medicine 03/29/20 06/16/24 Pcp, Unknown PCP - General 06/17/24 documented as of this encounter Additional Source Comments The information contained in this document represents components of the legal health record. It is not the complete legal health record.[facility]
--- OUTSIDE RECORDS SUMMARY | 2025-02-08 11:24 | XMS_ITS | Patient Health Record ---
Author Organization [employer] [facility] A Address [address] [place], [place] [address] Care Team Providers Care Tank Shop Supervisor Name Role Phone Raleigh Morillo Unavailable Reason [...] Problem Pain of left knee joint (finding) (52763023743220 7) Pain in left knee (M25.562) Active confirmed Problem Sprain of lateral collateral ligament of knee (33393986) Sprain of lateral collateral ligament of left knee, initial encounter (S83.422A) Active confirmed Plan Of Treatment Pending Test Test Name Order Date X ray : Knee, min 3 views, left 04/08/20 19 Insurance Providers Payer Name Payer Address Payer Phone Subscriber Number Group Number Insured Name Patient Relationship to Insured Coverage Start Date Coverage End Date R G - [address] [address] [place] [address] [phone] [id number] [phone] Licha Patricia Self - patient is the insured Medical (General) History Medical History History ICD Code Thyroidism hypertension High Cholesterol Surgical History Surgery Date(Month/Year) tubal ligation wisdom teeth extraction Hospitalization History Reason Date(Month/Year) see above surgery
--- OUTSIDE RECORDS SUMMARY | 2025-02-08 11:24 | XMS_ITS | Clinical Summary ---
Author Organization [employer] [facility] Address [address] [address] Phone Care Team Providers Care Radiation Control Specialist Name Role Phone Pcp, Unknown Primary Care [...] EST): Well controlled by recent TSH from [facility] Essential hypertension 04/23/2020 Assessment & Plan (06/17/2023 [...] Type Department Care Team Description 12/12/2024 Refill [facility] Primary Care [address] [facility] [facility] [address] [place] [address] Kelly Narayan MD, MPH Medication Refill from [...] EDT) TSH 1.27 0.27 - 4.20 uIU/mL [facility] Blood 09/10/2023 8:02 AM EDT 09/10/2023 8:15 AM EDT us Kelly Narayan MD, MPH LAB BLOOD ORDERABLES Final Result Performing Organization Address City/State/[facility] Co de Phone Number [address] [address] * (ABNORMAL) Lipid panel (06/18/2023 8:04 AM EST) HDL 77 mg/dL [facility] Comment: Interpretation <40 mg/dL: Low HDL cholesterol (major risk factor for CHD) Greater than or equal to 60 mg/dL: High HDL cholesterol ( negative risk factor for CHD) HDL - cholesterol is affected by a number of factors, e.g. smoking, excerise, hormones, sex and age. CHOLESTEROL 227 0 - 240 mg/dL [facility] TRIGLYCERIDES 171(H) 30 - 160 mg/dL [facility] LDL 116 50 - 129 mg/dL [facility] Comment: LDL levels in terms of risk for coronary heart disease: <100 mg/dL: Optimal 100-129 mg/dL: Near or above optimal 130-159 mg/dL: Borderline high 160-189 mg/dL: High >190 mg/dL: Very High CARDIAC RISK RATIO 2.9(L) 3.3 - 4.4 C [facility] Blood 06/18/2023 8:04 AM EST 06/18/2023 8:10 AM EST Kelly Narayan MD, MPH LAB BLOOD ORDERABLES Final Result Performing Organization Address [facility] Co de Phone Number [address] [address] * MAMMOGRAPHY FOR RESULT ENTRY ONLY (01/23/2023) Kelly Narayan MD, MPH HEALTH MAINTENANCE F inal Result * Hepatitis C antibody, qualitative (01/22/2021 3:06 PM EDT) HCV NON-REACTIV E NON-REACTI VE [facility] Blood 01/22/2021 3:06 PM EDT 01/22/2021 3:20 PM EDT Result [facility] Kelly Narayan MD, MPH LAB BLOOD ORDERABLES Final Result Performing Organization Address [facility] de Phone Number [address] [address] * Pap Smear (04/30/2020 12:00 AM EST) 04/30/2020 05/01/2020 8:2 0 AM EST Narrative SEE NARRATIVE - 05/03/2020 1:35 PM EST [address] [address] Farm Boss: Selam Yung MD INJECTION MOLDING ENGINEER Cytology Report FINAL DIAGNOSIS A. PAP SMEAR [...] 52, 56, 58, 59, 66, 68) by [employer] HR-HPV analysis. Clinical correlation is advised. This HPV test was performed at [facility], [address] [place] [address]. This test has been FDA approved for [employer] cervical cytology specimens. The accuracy and precision of this test for all other specimen sources has been verified in the Cytopathology Laboratory of the [facility] and has not been cleared or approved by the U.S. Food and Drug Administration. Clinical correlation is advised. CLINICAL HISTORY Date of Last Menstrual Period: Not Provided Menstrual History: Alap-Menopausal Bleeding, Post Coital Other Clinical Conditions: Screening Pap INJECTION MOLDING ENGINEER exam with abnormal findings: CERVICAL VS PROLAPSING ENDOMETRIAL POLYP PRESENT SPECIMEN SOURCE A: PAP SMEAR (SUREPATH) CE Patient Name: LISANDRA RO : 1965 (Age: 54) Sex: F Institution: [facility] Location: [facility] [...] Most [place] [id number] BLUE CROSS OUT OF STATE PPO BLUE CROSS OUT OF STATE PPO BLUE CROSS OUT OF STATE PPO OUT [facility] [place] [address] [address] [address] OUT [facility] P[employer] BLUE CROSS OUT OF STATE PPO Member Subscriber Plan / Payer (Ef fective 2021-Present) Name:Lisandra Hyatt Relation to Subscriber:Spouse Name:JEFF HYATT Date of :1900 (Home) Address: [address] [place] [address] Payer ID:[id number] (NAIC) Type:PPO Address: [address] [place], [place] BLUE CROSS OUT OF [facility] PPO Member Subscriber Plan / Payer ( fective 2021-Present) Name:Lisandra Hyatt Relation to Subscriber:Spouse Name:JEFF HYATT Date of :1900 (Home) Address: [address] [place], [place] Payer ID:[id number] (NAIC) Type:PPO Address: [address] [place], [place] BLUE CROSS OUT OF STATE PPO BLUE CROSS OUT [facility] PPO Care Teams Radiation Control Specialist Relationship Specialty Start Date End Date Pcp, Unknown PCP - General 06/17/24 Additional Source Comments The information contained in this document represents components of the legal health record. It is not the complete legal health record.[facility]
--- OUTSIDE RECORDS SUMMARY | 2025-02-08 11:24 | XMS_ITS | Encounter Summary ---
Author Organization [facility] Address [address] [facility] [address] [place] [address] Phone Care Team Providers Care Welfare Manager Name Role Phone Pcp, Unknown Primary Care Provider Unavailabl e Reason for Visit * Reason Comments Medication Refill Encounter Details Date Type Department Care Team (Late st Contact Info) Description 12/12/2024 Refill [facility] Primary Care [address] [facility] [address] [place] [address] Kelly Narayan MD, MPH [address] [facility] [address] [place] [address] [email or web address] Medication Refill Social History Tobacco Use Types [...] high school, GED, job training, learning the Belgian language, technical skills, or developing parenting skills)? [...] documented as of this encounter Care Teams Welfare Manager Relationship Specialty Start Date End Date Pcp, Unknown PCP - General 06/17/24 documented as of this encounter Additional Source Comments The information contained in this document represents components of the legal health record. It is not the complete legal health record.[facility]
== END 2025-02-08 10:36 | disposition home or self-care (01) ==
LOC: HO.HCS 10:10
PROVIDERS: PCP Nurse Practitioner Family; Visit Provider Internal Medicine Cardiovascular Disease
DX: I10 Essential (primary) hypertension (principal); Z95.5 Presence of coronary angioplasty implant and graft
CPT/HCPCS: 93010; 99214

== ENCOUNTER → 2025-02-08 10:09 | Outpatient (BNVA) | payer BC, SELFPAY | PROVIDERS: PCP Nurse Practitioner Family; Visit Provider Internal Medicine Cardiovascular Disease | DX: I10 Essential (primary) hypertension (principal); Z95.5 Presence of coronary angioplasty implant and graft | CPT/HCPCS: 93005 ==

== ENCOUNTER 2025-02-13 07:54 | Outpatient (REF) | payer BC, SELFPAY ==
--- OUTSIDE RECORDS SUMMARY | 2025-02-13 07:58 | XMS_ITS | Patient Health Record ---
Author Organization [employer] [facility] Address [address] [place], [place] [address] Care Team Providers Care Generation Manager Name Role Phone Raleigh Morillo Unavailable [phone] Reason For Referral No Information Medications [...] Problem Pain of left knee joint (finding) (89474911782733 7) Pain in left knee (M25.562) Active confirmed Problem Sprain of lateral collateral ligament of knee (54328607) Sprain of lateral collateral ligament of left knee, initial encounter (S83.422A) Active confirmed Plan Of Treatment Pending Test Test Name Order Date X ray : Knee, min 3 views, left 04/08/20 19 Insurance Providers Payer Name Payer Address Payer Phone Subscriber Number Group Number Insured Name Patient Relationship to Insured Coverage Start Date Coverage End Date R G - [address] [address] [place] [address] [phone] [id number] [phone] Licha Patricia Self - patient is the insured Medical (General) History Medical History History ICD Code Thyroidism hypertension High Cholesterol Surgical History Surgery Date(Month/Year) tubal ligation wisdom teeth extraction Hospitalization History Reason Date(Month/Year) see above surgery
--- OUTSIDE RECORDS SUMMARY | 2025-02-13 07:58 | XMS_ITS | Encounter Summary ---
Author Organization [facility] Address [address] [facility] [address] [place] [address] Phone Care Team Providers Care Sheet Metal Duct Worker Supervisor Name Role Phone Pcp, Unknown Primary Care Provider Unavailabl e Reason for Visit * Reason Comments Medication Refill Encounter Details Date Type Department Care Team (Late st Contact Info) Description 12/12/2024 Refill [facility] Primary Care [address] [facility] [address] [place] [address] Kelly Narayan MD, MPH [address] [facility] [address] [place] [address] [email or web address] Medication Refill Social History Tobacco Use Types [...] high school, GED, job training, learning the Belarusian language, technical skills, or developing parenting skills)? [...] documented as of this encounter Care Teams Sheet Metal Duct Worker Supervisor Relationship Specialty Start Date End Date Pcp, Unknown PCP - General 06/17/24 documented as of this encounter Additional Source Comments The information contained in this document represents components of the legal health record. It is not the complete legal health record.[facility]
--- OUTSIDE RECORDS SUMMARY | 2025-02-13 07:58 | XMS_ITS | Encounter Summary ---
Author Organization [facility] Address [address] [facility] [address] [place] [address] Phone Care Team Providers Care Film Color Tester Name Role Phone Kelly Narayan MD, MPH Primary Care Provid er Pcp, Unknown Primary Care Provider Unavailabl e Encounter Details Date Type Department Care Team (Late st Contact Info) Description 10/12/2023 Procedure Pass [facility], Ct Scan - [address] [address] Social History Tobacco Use Types Packs/Day Years [...] high school, GED, job training, learning the Nigerien language, technical skills, or developing parenting skills)? [...] documented as of this encounter Care Teams Film Color Tester Relationship Specialty Start Date End Date Kelly Narayan MD, MPH [address] [address] [email or web address] PCP - General Family Medicine 03/29/20 06/16/24 Pcp, Unknown PCP - General 06/17/24 documented as of this encounter Additional Source Comments The information contained in this document represents components of the legal health record. It is not the complete legal health record.[facility]
--- OUTSIDE RECORDS SUMMARY | 2025-02-13 07:58 | XMS_ITS | Clinical Summary ---
Author Organization [id number] [facility] Address [address] [address] Phone Care Team Providers Care Truck Driver Instructor Name Role Phone Pcp, Unknown Primary Care [...] EST): Well controlled by recent TSH from [facility] Essential hypertension 04/23/2020 Assessment & Plan (06/17/2023 [...] Type Department Care Team Description 12/12/2024 Refill [facility] [place] [facility] [address] [facility] [address] [place] [address] Kelly Narayan MD, MPH Medication Refill from [...] high school, GED, job training, learning the Ethiopian language, technical skills, or developing parenting skills)? [...] EDT) TSH 1.27 0.27 - 4.20 uIU/mL [facility] Blood 09/10/2023 8:02 AM EDT 09/10/2023 8:15 AM EDT us Kelly Narayan MD, MPH LAB BLOOD ORDERABLES Final Result Performing Organization Address City/State/[facility] Co de Phone Number [address] [address] * (ABNORMAL) Lipid panel (06/18/2023 8:04 AM EST) HDL 77 mg/dL [facility] Comment: Interpretation <40 mg/dL: Low HDL cholesterol (major risk factor for CHD) Greater than or equal to 60 mg/dL: High HDL cholesterol ( negative risk factor for CHD) HDL - cholesterol is affected by a number of factors, e.g. smoking, excerise, hormones, sex and age. CHOLESTEROL 227 0 - 240 mg/dL [facility] TRIGLYCERIDES 171(H) 30 - 160 mg/dL [facility] LDL 116 50 - 129 mg/dL [facility] Comment: LDL levels in terms of risk for coronary heart disease: <100 mg/dL: Optimal 100-129 mg/dL: Near or above optimal 130-159 mg/dL: Borderline high 160-189 mg/dL: High >190 mg/dL: Very High CARDIAC RISK RATIO 2.9(L) 3.3 - 4.4 C [facility] Blood 06/18/2023 8:04 AM EST 06/18/2023 8:10 AM EST Kelly Narayan MD, MPH LAB BLOOD ORDERABLES Final Result Performing Organization Address [facility] Co de Phone Number [address] [address] * MAMMOGRAPHY FOR RESULT ENTRY ONLY (01/23/2023) Kelly Narayan MD, MPH HEALTH MAINTENANCE F inal Result * Hepatitis C antibody, qualitative (01/22/2021 3:06 PM EDT) HCV NON-REACTIV E NON-REACTI VE [facility] Blood 01/22/2021 3:06 PM EDT 01/22/2021 3:20 PM EDT Result [facility] Kelly Narayan MD, MPH LAB BLOOD ORDERABLES Final Result Performing Organization Address [facility] de Phone Number [address] [address] * Pap Smear (04/30/2020 12:00 AM EST) 04/30/2020 05/01/2020 8:2 0 AM EST Narrative SEE NARRATIVE - 05/03/2020 1:35 PM EST [address] [address] International Logistics Manager: Selam Yung MD HARNESS AND BAG INSPECTOR Cytology Report FINAL DIAGNOSIS A. PAP SMEAR [...] 52, 56, 58, 59, 66, 68) by [email or web address] HR-HPV analysis. Clinical correlation is advised. This HPV test was performed at [facility], [address] [place] [address]. This test has been FDA approved for SurePath cervical cytology specimens. The accuracy and precision of this test for all other specimen sources has been verified in the Cytopathology Laboratory of the [facility] and has not been cleared or approved by the U.S. Food and Drug Administration. Clinical correlation is advised. CLINICAL HISTORY Date of Last Menstrual Period: Not Provided Menstrual History: Alpa-Menopausal Bleeding, Post Coital Other Clinical Conditions: Screening Pap HARNESS AND BAG INSPECTOR exam with abnormal findings: CERVICAL VS PROLAPSING ENDOMETRIAL POLYP PRESENT SPECIMEN SOURCE A: PAP SMEAR (SUREPATH) CE Patient Name: LISANDRA RO : 1965 (Age: 54) Sex: F [facility] Date of Collection: 04/30/2020 Date of Reported: 05/03/2020 13:35 Results to: Kelly Narayan MD, MPH us Kelly Narayan MD, MPH CYTOLOGY ORDERABLES Final Result SEE NARRATIVE * COLONOSCOPY FOR RESULT ENTRY ONLY (11/27/2017) Colonoscopy path tubular adenoma please see scanned report us Historical Provider HEALTH MAINTENANCE Final Result from Last 3 Months or Most Recently Relevant [place] [id number] BLUE CROSS OUT OF STATE PPO BLUE CROSS OUT OF STATE PPO BLUE CROSS OUT OF STATE PPO OUT [facility] [place] [address] [address] OUT [employer] [facility] [employer] [employer] PPO BLUE CROSS OUT OF STATE PPO Member Subscriber Plan / Payer (Ef fective 2021-Present) Name:Lisandra Hyatt Relation to Subscriber:Spouse Name:JEFF HYATT Date of :1900 (Home) Address: [address] [place] [address] Payer ID:[id number] (NAIC) Type:PPO Address: [address] [place], [place] BLUE CROSS OUT OF [facility] PPO Member Subscriber Plan / Payer ( fective 2021-Present) Name:Lisandra Hyatt Relation to Subscriber:Spouse Name:JEFF HYATT Date of :1900 (Home) Address: [address], [place] Payer ID:[id number] (NAIC) Type:PPO Address: [address] [place], [place] BLUE CROSS OUT OF STATE PPO BLUE CROSS OUT [employer] PPO Care Teams Truck Driver Instructor Relationship Specialty Start Date End Date Pcp, Unknown PCP - General 06/17/24 Additional Source Comments The information contained in this document represents components of the legal health record. It is not the complete legal health record.[facility]
== END 2025-02-13 07:55 | disposition home or self-care (01) ==
LOC: HO.MAMMO 07:54
PROVIDERS: PCP Nurse Practitioner Family; Visit Provider Nurse Practitioner Family
DX: Z12.31 Encounter for screening mammogram for malignant neoplasm of breast (principal)
CPT/HCPCS: 77063; 77067

== ENCOUNTER → 2025-02-13 08:00 | Outpatient (BNV) | payer BC, SELFPAY | PROVIDERS: PCP Nurse Practitioner Family; Visit Provider Internal Medicine | DX: Z12.31 Encounter for screening mammogram for malignant neoplasm of breast (principal) | CPT/HCPCS: 77063; 77067 ==

== ENCOUNTER 2025-02-14 15:43 | Outpatient (AMB) | payer BC, SELFPAY ==
[2025-02-14 15:53] VITALS: BP 122/82; PULSE 72; O2SAT 97
--- NOTE | 2025-02-14 15:53 | A.OFFVIS_ITS ---
Vital Signs 02/14/25 15:53 BP 122/82 Pulse 72 Pulse Oximetry (%) 97 Intake Visit Reasons: MAT Allergies No Known Allergies Allergy (Mild, Verified 02/14/25 15:54) NONE HPI Comments Details: A 59-year-old female presents for a follow-up visit r/t AUD in sustained remission. Reports no alcohol consumption and off of naltrexone for past month, continues to feel stable and denies cravings for alcohol. Family is supportive and continues to work full-time. [facility] Medical History Abnormal stress test Elevated LFTs Liver lesion Scoliosis High cholesterol Hypertension Surgical History H/O heart artery stent (~10/2024) History of colonoscopy (~2017) History of wisdom tooth extraction History of tubal ligation Family History Father High cholesterol HTN (hypertension) CVD (cardiovascular disease) Mother Breast cancer Colon cancer Hyperlipidemia Paternal Grandfather Colon cancer Paternal Grandmother No problems noted. Social History Household Members: Spouse Housing: House Are you a primary director career services to a significant other at home: No Do you presently have visiting nurse or other home services: No 75 years or older and lives alone: No Alcohol intake: former Patient Tobacco Use Status: Never used Tobacco e-Cigarette/Vaping Use: Never Used service: No Current occupational status: employed Current occupation: [employer] Current occupational exposures/hazards: No Cognitive needs: No Hearing needs: No Vision needs: Yes (wear glasses) Review of Systems Const All systems reviewed & are unremarkable except as noted in HPI and below Physical Exam Vital Signs: Last Vital Signs Pulse 72 02/14/25 15:53 BP 122/82 02/14/25 15:53 Pulse Ox 97 02/14/25 15:53 Const General: cooperative Assessment & Plan Assessment & Plan (1) Alcohol use disorder, mild, in early remission: Code(s): F10.11 - Alcohol abuse, in remission Category: Medical Plan The patient is not interested in continuing naltrexone as she is doing well without the assistance of a medication. Follow-up as needed. Patient Instructions: - Follow up as needed. - Call with questions, concerns, or to report side effects/new onset of symptoms to [facility]. - The patient verbalized understanding and agreed with plan of care. Coding Level of Care Code Est Pt Level 3 (62714) Diagnoses Alcohol use disorder, mild, in early remission F10.11
--- OUTSIDE RECORDS SUMMARY | 2025-02-14 18:41 | XMS_ITS | Clinical Summary ---
Author Organization [email or web address] [facility] Address [address] [address] Phone Care Team Providers Care Security Assistant Name Role Phone Pcp, Unknown Primary Care [...] EST): Well controlled by recent TSH from [facility] [place] Essential hypertension 04/23/2020 Assessment & Plan (06/17/2023 [...] Type Department Care Team Description 12/12/2024 Refill [facility] [place] [facility] [address] [facility] [address] [place] [address] Kelly Narayan MD, MPH Medication Refill from [...] high school, GED, job training, learning the Qatari language, technical skills, or developing parenting skills)? [...] EDT) TSH 1.27 0.27 - 4.20 uIU/mL [facility] Blood 09/10/2023 8:02 AM EDT 09/10/2023 8:15 AM EDT us Kelly Narayan MD, MPH LAB BLOOD ORDERABLES Final Result Performing Organization Address City/State/[facility] Co de Phone Number [address] [address] * (ABNORMAL) Lipid panel (06/18/2023 8:04 AM EST) HDL 77 mg/dL [facility] Comment: Interpretation <40 mg/dL: Low HDL cholesterol (major risk factor for CHD) Greater than or equal to 60 mg/dL: High HDL cholesterol ( negative risk factor for CHD) HDL - cholesterol is affected by a number of factors, e.g. smoking, excerise, hormones, sex and age. CHOLESTEROL 227 0 - 240 mg/dL [facility] TRIGLYCERIDES 171(H) 30 - 160 mg/dL [facility] LDL 116 50 - 129 mg/dL [facility] Comment: LDL levels in terms of risk for coronary heart disease: <100 mg/dL: Optimal 100-129 mg/dL: Near or above optimal 130-159 mg/dL: Borderline high 160-189 mg/dL: High >190 mg/dL: Very High CARDIAC RISK RATIO 2.9(L) 3.3 - 4.4 C [facility] Blood 06/18/2023 8:04 AM EST 06/18/2023 8:10 AM EST Kelly Narayan MD, MPH LAB BLOOD ORDERABLES Final Result Performing Organization Address [facility] Co de Phone Number [address] [address] * MAMMOGRAPHY FOR RESULT ENTRY ONLY (01/23/2023) Kelly Narayan MD, MPH HEALTH MAINTENANCE F inal Result * Hepatitis C antibody, qualitative (01/22/2021 3:06 PM EDT) HCV NON-REACTIV E NON-REACTI VE [facility] Blood 01/22/2021 3:06 PM EDT 01/22/2021 3:20 PM EDT Result [facility] Kelly Narayan MD, MPH LAB BLOOD ORDERABLES Final Result Performing Organization Address [facility] de Phone Number [address] [address] * Pap Smear (04/30/2020 12:00 AM EST) 04/30/2020 05/01/2020 8:2 0 AM EST Narrative SEE NARRATIVE - 05/03/2020 1:35 PM EST [address] [address] Assembly Detailer: Selam Yung MD RESIDENTIAL SOLAR CONSULTANT Cytology Report FINAL DIAGNOSIS A. PAP SMEAR [...] 52, 56, 58, 59, 66, 68) by [employer] HR-HPV analysis. Clinical correlation is advised. This HPV test was performed at [facility], [address] [place] [address]. This test has been FDA approved for SurePath cervical cytology specimens. The accuracy and precision of this test for all other specimen sources has been verified in the Cytopathology Laboratory of the [facility] and has not been cleared or approved by the U.S. Food and Drug Administration. Clinical correlation is advised. CLINICAL HISTORY Date of Last Menstrual Period: Not Provided Menstrual History: Alpa-Menopausal Bleeding, Post Coital Other Clinical Conditions: Screening Pap RESIDENTIAL SOLAR CONSULTANT exam with abnormal findings: CERVICAL VS PROLAPSING ENDOMETRIAL POLYP PRESENT SPECIMEN SOURCE A: PAP SMEAR (SUREPATH) CE Patient Name: LISANDRA RO : 1965 (Age: 54) Sex: F [facility]: [facility] Date of Collection: 04/30/2020 Date of Reported: 05/03/2020 13:35 Results to: Kelly Narayan MD, MPH us Kelly Narayan MD, MPH CYTOLOGY ORDERABLES Final Result SEE NARRATIVE * COLONOSCOPY FOR RESULT ENTRY ONLY (11/27/2017) Colonoscopy path tubular adenoma please see scanned report us Historical Provider HEALTH MAINTENANCE Final Result from Last 3 Months or Most Recently [id number] BLUE CROSS OUT OF STATE PPO BLUE CROSS OUT OF STATE PPO BLUE CROSS OUT OF STATE PPO OUT [facility] [place] [address] OUT [facility] PPO BLUE CROSS OUT OF STATE PPO Member Subscriber Plan / Payer (Ef fective 2021-Present) Name:Lisandra Hyatt Relation to Subscriber:Spouse Name:JEFF HYATT Date of :1900 (Home) Address: [address] [place] [id number] Payer ID:[id number] (NAIC) Type:PPO Address: [address] [place], [place] BLUE CROSS OUT OF [facility] PPO Member Subscriber Plan / Payer ( fective 2021-Present) Name:Lisandra Hyatt Relation to Subscriber:Spouse Name:JEFF HYATT Date of :1900 (Home) Address: [address], [place] Payer ID:[id number] (NAIC) Type:PPO Address: [address] [place], [place] BLUE CROSS OUT OF STATE PPO BLUE CROSS OUT [facility] PPO Care Teams Security Assistant Relationship Specialty Start Date End Date Pcp, Unknown PCP - General 06/17/24 Additional Source Comments The information contained in this document represents components of the legal health record. It is not the complete legal health record.[facility]
--- OUTSIDE RECORDS SUMMARY | 2025-02-14 18:41 | XMS_ITS | Encounter Summary ---
Author Organization [facility] Address [address] [facility] [address] [place] [address] Phone Care Team Providers Care Material Crew Supervisor Name Role Phone Pcp, Unknown Primary Care Provider Unavailabl e Reason for Visit * Reason Comments Medication Refill Encounter Details Date Type Department Care Team (Late st Contact Info) Description 12/12/2024 Refill [facility] [address] [facility] [address] [place] [address] Kelly Narayan MD, MPH [address] [facility] [address] [place] [address] [email or web address] Medication Refill Social History Tobacco Use Types [...] high school, GED, job training, learning the Dutch language, technical skills, or developing parenting skills)? [...] documented as of this encounter Care Teams Material Crew Supervisor Relationship Specialty Start Date End Date Pcp, Unknown PCP - General 06/17/24 documented as of this encounter Additional Source Comments The information contained in this document represents components of the legal health record. It is not the complete legal health record.[facility]
--- OUTSIDE RECORDS SUMMARY | 2025-02-14 18:41 | XMS_ITS | Encounter Summary ---
Author Organization [employer] [facility] Address [address] [facility] [address] [place] [address] Phone Care Team Providers Care Finance Controller Name Role Phone Kelly Narayan MD, MPH Primary Care Provid er Pcp, Unknown Primary Care Provider Unavailabl e Encounter Details Date Type Department Care Team (Late st Contact Info) Description 10/12/2023 Procedure Pass [facility], Ct Scan - [address] [address] Social History Tobacco Use Types Packs/Day Years [...] high school, GED, job training, learning the Nicaraguan language, technical skills, or developing parenting skills)? [...] documented as of this encounter Care Teams Finance Controller Relationship Specialty Start Date End Date Kelly Narayan MD, MPH [address] [address] [email or web address] PCP - General Family Medicine 03/29/20 06/16/24 Pcp, Unknown PCP - General 06/17/24 documented as of this encounter Additional Source Comments The information contained in this document represents components of the legal health record. It is not the complete legal health record.[facility]
--- OUTSIDE RECORDS SUMMARY | 2025-02-14 18:42 | XMS_ITS | Patient Health Record ---
Author Organization [employer] [facility] Address [address] [place], [place] [id number] Care Team Providers Care Chemical Lab Supervisor Name Role Phone Raleigh Morillo Unavailable [...] Problem Pain of left knee joint (finding) (84733266831223 7) Pain in left knee (M25.562) Active confirmed Problem Sprain of lateral collateral ligament of knee (41772536) Sprain of lateral collateral ligament of left knee, initial encounter (S83.422A) Active confirmed Plan Of Treatment Pending Test Test Name Order Date X ray : Knee, min 3 views, left 04/08/20 19 Insurance Providers Payer Name Payer Address Payer Phone Subscriber Number Group Number Insured Name Patient Relationship to Insured Coverage Start Date Coverage End Date R G - [id number] [address] [address] [place] [address] [id number] Licha Patricia Self - patient is the insured Medical (General) History Medical History History ICD Code Thyroidism hypertension High Cholesterol Surgical History Surgery Date(Month/Year) tubal ligation wisdom teeth extraction Hospitalization History Reason Date(Month/Year) see above surgery
== END 2025-02-14 15:54 | disposition home or self-care (01) ==
LOC: HO.HCC 15:43
PROVIDERS: PCP Nurse Practitioner Family; Visit Provider Clinical Nurse Specialist Psychiatric/Mental Health
DX: F10.11 Alcohol abuse, in remission (principal)
CPT/HCPCS: 99213

== ENCOUNTER 2025-02-28 14:39 | Outpatient (AMB) | payer BC, SELFPAY ==
[2025-02-28 14:41] VITALS: BP 140/76; PULSE 57; O2SAT 98; BMI 25.9
--- NOTE | 2025-02-28 14:41 | HO.NEPHOV ---
Vital Signs 02/28/25 14:41 Height 5 ft 1 in Weight 137 lb BMI 25.9 BP 140/76 H Blood Pressure Location Lt brachial Position Sitting Pulse 57 Pulse Source Pulse Oximeter Pulse Oximetry (%) 98 Oxygen Delivery Method Room Air Intake Visit Reasons: INP: Cyst of kidney, acquired,vm left Clinical Laboratory Aides Teacher Required: No Accompanied by: Self / Same As Patient Allergies No Known Allergies Allergy (Mild, Verified 02/28/25 14:42) NONE Medication List - Last Reconciled 02/28/25 by Rocky Blakely MD aspirin (Adult Aspirin Regimen) 81 mg PO DAILY betamethasone valerate 0.12% 1 appl topical BID levothyroxine 75 mcg PO DAILY multivitamin 1 tab PO DAILY nitroglycerin 0.3 mg sublingual Q5M PRN rosuvastatin 40 mg PO DAILY 90 days thiamine HCl (vitamin B1) (Vitamin B-1) 100 mg PO DAILY ticagrelor 90 mg PO BID HPI Comments Details: - The patient is a 59-year-old female presenting with a renal cyst. - Renal cyst identified six years ago, showing growth, evaluated by MRI and ultrasound. - MRI shows a 6.7 cm complex cyst on the right kidney, benign appearance. - Coronary artery disease with stent placement for 90% blockage. - Hypercholesterolemia, hereditary, no family history of early heart attacks. - Liver enzyme elevation, possibly due to statins, alcohol abstinence for six months. [facility] Medical History Abnormal stress test Elevated LFTs Liver lesion Scoliosis High cholesterol Hypertension Surgical History H/O heart artery stent (~10/2024) History of colonoscopy (~2017) History of wisdom tooth extraction History of tubal ligation Family History Father High cholesterol HTN (hypertension) CVD (cardiovascular disease) Mother Breast cancer Colon cancer Hyperlipidemia Paternal Grandfather Colon cancer Paternal Grandmother No problems noted. Social History Household Members: Spouse Housing: House Are you a primary critical care unit nurse to a significant other at home: No Do you presently have visiting nurse or other home services: No Alcohol intake: former Patient Tobacco Use Status: Never used Tobacco e-Cigarette/Vaping Use: Never Used service: No Current occupational status: employed Current occupation: [employer] Current occupational exposures/hazards: No Cognitive needs: No Hearing needs: No Vision needs: Yes (wear glasses) Review of Systems Const Denies fever(s) and Denies weight loss Card Denies chest pain Resp Denies cough and Denies hemoptysis GI Denies abdominal pain, Denies diarrhea and Denies nausea Musc Denies back pain Neuro Denies focal weakness Physical Exam Vital Signs: Last Vital Signs Pulse 57 02/28/25 14:41 BP 140/76 H 02/28/25 14:41 Pulse Ox 98 02/28/25 14:41 Oxygen Delivery Method Room Air 02/28/25 14:41 BMI result Body Mass Index 25.9 Comfortable Neck supple no JVD. Lungs entry equal no rales. Heart S1-S2 heard no gallop or rub. Abdomen soft nontender. Neuro alert awake oriented. No asterixis. Extremities no edema. Results Reviewed Results Reviewed: USG 1. No abnormality of the liver, gallbladder or common bile duct. 2. Complex septated cystic structure in the lower pole of the right kidney measuring 6.7 cm in diameter. This could be further evaluated with multiphase renal CT or MRI. MRI Kidneys: There is a 7.1 x 7.3 x 6.5 cm lobulated cyst at the lower pole of the right kidney. There may be a thin septation within the cyst. No enhancing solid components are identified. The left kidney is unremarkable. There is no hydronephrosis. Nephrology Results: Urine Protein, (Neg-Trace) 300 (3+) mg/dL H 03/01/25 Assessment & Plan Assessment & Plan (1) Menopause: Code(s): Z78.0 - Asymptomatic menopausal state Category: Medical Plan 1. Renal Cyst - Repeat ultrasound in six months. - Urine cytology and protein check. - Report any hematuria. 2. Coronary Artery Disease With Stent Placement - Continue cardiac medications, monitor cholesterol. 3. Hypercholesterolemia - Maintain statin therapy, monitor liver enzymes. 4. Liver Enzyme Elevation - Regular liver function tests, continue alcohol abstinence Orders: Orders Urine Cytology 03/01/25 R31.9 - Hematuria, unspecified, N28.1 - Cyst of kidney, acquired UA and rflx microscopic 03/01/25 N28.1 - Cyst of kidney, acquired US renal BI 6 Months N28.1 - Cyst of kidney, acquired Coding Level of Care Code New Pt Level 4 ([address]177) Diagnoses Menopause Z78.0
--- OUTSIDE RECORDS SUMMARY | 2025-02-28 19:43 | XMS_ITS | Encounter Summary ---
Author Organization [employer] [facility] Address [address] [facility] [address] [place] [address] Phone Care Team Providers Care Networking Engineer Name Role Phone Kelly Narayan MD, MPH Primary Care Provid er Pcp, Unknown Primary Care Provider Unavailabl e Encounter Details Date Type Department Care Team (Late st Contact Info) Description 10/12/2023 Procedure Pass [facility], Ct Scan - [address] [address] Social History Tobacco Use Types Packs/Day Years [...] high school, GED, job training, learning the Libyan language, technical skills, or developing parenting skills)? [...] documented as of this encounter Care Teams Networking Engineer Relationship Specialty Start Date End Date Kelly Narayan MD, MPH [address] [address] [email or web address] PCP - General Family Medicine 03/29/20 06/16/24 Pcp, Unknown PCP - General 06/17/24 documented as of this encounter Additional Source Comments The information contained in this document represents components of the legal health record. It is not the complete legal health record.[facility]
--- OUTSIDE RECORDS SUMMARY | 2025-02-28 19:44 | XMS_ITS | Encounter Summary ---
Author Organization [facility] Address [address] [place] [address] Phone Care Team Providers Care Ground Control Approach Technician Name Role Phone Pcp, Unknown Primary Care Provider Unavailabl e Reason for Visit * Reason Comments Medication Refill Encounter Details Date Type Department Care Team (Late st Contact Info) Description 12/12/2024 Refill [facility] Primary [facility] [address] [place] [address] Kelly Narayan MD, MPH [address] [facility] [address] [facility] [address] [place] [address] [email or web address] Medication Refill Social History Tobacco Use Types [...] high school, GED, job training, learning the Djiboutian language, technical skills, or developing parenting skills)? [...] documented as of this encounter Care Teams Ground Control Approach Technician Relationship Specialty Start Date End Date Pcp, Unknown PCP - General 06/17/24 documented as of this encounter Additional Source Comments The information contained in this document represents components of the legal health record. It is not the complete legal health record.[facility]
--- OUTSIDE RECORDS SUMMARY | 2025-02-28 19:44 | XMS_ITS | Clinical Summary ---
Author Organization [employer] [facility] Address [address] [address] Phone Care Team Providers Care Professional Development Instructor Name Role Phone Pcp, Unknown Primary [...] EST): Well controlled by recent TSH from [facility] Essential hypertension 04/23/2020 Assessment & Plan (06/17/2023 [...] Type Department Care Team Description 12/12/2024 Refill [facility] [place] [facility] [address] [place] [address] Kelly Narayan MD, MPH Medication Refill from [...] high school, GED, job training, learning the Angolan language, technical skills, or developing parenting skills)? [...] 06/18/2028 06/18/2023, 07/09, 02/25/2022, Additional history exists RSV VACCINE (1 - 1-dose 75+ series) 2042 HEPATITIS C SCREENING Completed 01/22/2021 HIV ONE-TIME [...] Routine 06/18/2023 8:04 AM EST Mixed hyperlipidemia HM MAMMOGRAPHY Routine 01/23/2023 HEPATITIS C ANTIBODY, QUALITATIVE [...] ORDERABLES Final Result Performing Organization Address City/State/[facility] Co de Phone Number [facility] [address] [place] [address] * (ABNORMAL) Lipid panel (06/18/2023 8:04 AM [...] RISK RATIO 2.9(L) 3.3 - 4.4 C [facility] Blood 06/18/2023 8:04 AM EST 06/18/2023 8:10 AM EST Kelly Narayan MD, MPH LAB BLOOD ORDERABLES Final Result Performing Organization Address [facility] Co de Phone Number [address] [address] * HM MAMMOGRAPHY FOR RESULT ENTRY ONLY (01/23/2023) Kelly Narayan MD, MPH HEALTH MAINTENANCE F inal Result * Hepatitis C antibody, qualitative (01/22/2021 3:06 PM EDT) HCV NON-REACTIV E NON-REACTI VE [facility] Blood 01/22/2021 3:06 PM EDT 01/22/2021 3:20 PM EDT Kelly Narayan MD, MPH LAB BLOOD ORDERABLES Final Result Performing Organization Address [facility] Co de Phone Number [address] [address] * Pap Smear (04/30/2020 12:00 AM EST) 04/30/2020 05/01/2020 8:2 0 AM EST Narrative SEE NARRATIVE - 05/03/2020 1:35 PM EST [address] [address] Pantry Attendant: Selam Yung MD CIGAR PACKER AND GRADER Cytology Report FINAL DIAGNOSIS A. PAP SMEAR [...] 52, 56, 58, 59, 66, 68) by [email or web address] HR-HPV analysis. Clinical correlation is advised. This HPV test was performed at [facility], [address] [place] [address]. This test has been FDA approved for SurePath cervical cytology specimens. The accuracy and precision of this test for all other specimen sources has been verified in the Cytopathology Laboratory of the [facility] and has not been cleared or approved by the U.S. Food and Drug Administration. Clinical correlation is advised. CLINICAL HISTORY Date of Last Menstrual Period: Not Provided Menstrual History: Alpa-Menopausal Bleeding, Post Coital Other Clinical Conditions: Screening Pap CIG[employer] P[employer]ER [employer] GRADER exam with abnormal findings: CERVICAL VS PROLAPSING ENDOMETRIAL POLYP PRESENT SPECIMEN SOURCE A: PAP SMEAR (SUREPATH) CE Patient Name: LISANDRA RO : 1965 (Age: 54) Sex: F Institution: [facility] Location: [facility] Date of Collection: 04/30/2020 Date of Reported: 05/03/2020 13:35 Results to: Kelly Narayan MD, MPH us Kelly Narayan MD, MPH CYTOLOGY ORDERABLES Final Result SEE NARRATIVE * COLONOSCOPY FOR RESULT ENTRY ONLY (11/27/2017) Colonoscopy path tubular adenoma please see scanned report us Historical Provider HEALTH MAINTENANCE Final Result from Last 3 Months or Most Recently Relevant to Health Maintenance Insurance BLUE CROSS OUT [place] [address] [place] [address] CROSS OUT OF [facility] PPO BLUE CROSS OUT OF STATE PPO BLUE CROSS OUT OF [facility] PPO BLUE CROSS OUT OF STATE PPO BLUE CROSS OUT OF STATE PPO Member Subscriber Plan / Payer (Ef fective 2021-Present) Name:Lisandra Hyatt Relation to Subscriber:Spouse Name:JEFF HYATT Date of :1900 (Home) Address: [address] [place] [address] Payer ID:[id number] (NAIC) Type:PPO Address: [address] [place], [place] [address] OUT [facility] PPO Member Subscriber Plan / Payer (Ef fective 2021-Present) Name:Lisandra Hyatt Relation to Subscriber:Spouse Name:JEFF HYATT Date of :1900 (Home) Address: [address], [place] Payer ID:[id number] (NAIC) Type:PPO Address: [address] [place], [place] BLUE CROSS OUT OF STATE PPO BLUE CROSS OUT OF STATE PPO Care Teams Professional Development Instructor Relationship Specialty Start Date End Date Pcp, Unknown PCP - General 06/17/24 Additional Source Comments The information contained in this document represents components of the legal health record. It is not the complete legal health record.[facility]
--- OUTSIDE RECORDS SUMMARY | 2025-02-28 19:44 | XMS_ITS | Patient Health Record ---
Author Organization [employer] [facility] Address [address] [place], [place] [id number] Care Team Providers Care Fire Tower Keeper Name Role Phone Raleigh Morillo Unavailable [phone] Reason For Referral No Information Medications [...] Problem Pain of left knee joint (finding) (70646665293198 7) Pain in left knee (M25.562) Active confirmed Problem Sprain of lateral collateral ligament of knee (15950077) Sprain of lateral collateral ligament of left knee, initial encounter (S83.422A) Active confirmed Plan Of Treatment Pending Test Test Name Order Date X ray : Knee, min 3 views, left 04/08/20 19 Insurance Providers Payer Name Payer Address Payer Phone Subscriber Number Group Number Insured Name Patient Relationship to Insured Coverage Start Date Coverage End Date R G - [address] [address] [place] [address] [id number] Licha Patricia Self - patient is the insured Medical (General) History Medical History History ICD Code Thyroidism hypertension High Cholesterol Surgical History Surgery Date(Month/Year) tubal ligation wisdom teeth extraction Hospitalization History Reason Date(Month/Year) see above surgery
== END 2025-02-28 15:02 | disposition home or self-care (01) ==
LOC: HO.HKA 14:40
PROVIDERS: PCP Nurse Practitioner Family; Referring Provider Nurse Practitioner Family; Visit Provider Internal Medicine Hypertension Specialist
DX: Z78.0 Asymptomatic menopausal state (principal)
CPT/HCPCS: 99204

== ENCOUNTER 2025-03-01 13:19 | Outpatient (REF) | payer BC, SELFPAY ==
[2025-03-01 14:50] LABS: Appearance Urine Clear; Glucose Urine UA Negative (Negative); PH 6.0 (5.0-9.0); Specific Gravity - Urine 1.020 (1.005-1.025); UMIC TRIGGER UA YES
[2025-03-01 15:22] LABS: Alanine Aminotransferase 77 U/L (0-31); Albumin Level 4.6 g/dL (3.5-5.0); Alkaline Phosphatase 105 U/L (39-117); Aspartate Amino Transferase 50 U/L (5-31); Total Protein 6.9 g/dL (6.5-8.0)
--- OUTSIDE RECORDS SUMMARY | 2025-03-01 18:49 | XMS_ITS | Encounter Summary ---
Author Organization [employer] [facility] Address [address] [facility] [address] [place] [address] Phone Care Team Providers Care Supervisor Asbestos Textile Name Role Phone Kelly Narayan MD, MPH Primary Care Provid er Pcp, Unknown Primary Care Provider Unavailabl e Encounter Details Date Type Department Care Team (Late st Contact Info) Description 10/12/2023 Procedure Pass [facility], Ct Scan - [address] [address] Social History Tobacco Use Types Packs/Day Years [...] high school, GED, job training, learning the Samoan language, technical skills, or developing parenting skills)? [...] documented as of this encounter Care Teams Supervisor Asbestos Textile Relationship Specialty Start Date End Date Kelly Narayan MD, MPH [address] [address] [email or web address] PCP - General Family Medicine 03/29/20 06/16/24 Pcp, Unknown PCP - General 06/17/24 documented as of this encounter Additional Source Comments The information contained in this document represents components of the legal health record. It is not the complete legal health record.[facility]
--- OUTSIDE RECORDS SUMMARY | 2025-03-01 18:49 | XMS_ITS | Encounter Summary ---
Author Organization [facility] Address [address] [facility] [address] [place] [address] Phone Care Team Providers Care Chief Petroleum Engineer Name Role Phone Pcp, Unknown Primary Care Provider Unavailabl e Reason for Visit * Reason Comments Medication Refill Encounter Details Date Type Department Care Team (Late st Contact Info) Description 12/12/2024 Refill [facility] Primary Care [address] [facility] [address] [place] [address] Kelly Narayan MD, MPH [address] [facility] [address] [place] [address] [email or web address] Medication Refill Social History Tobacco Use Types [...] high school, GED, job training, learning the Algerian language, technical skills, or developing parenting skills)? [...] documented as of this encounter Care Teams Chief Petroleum Engineer Relationship Specialty Start Date End Date Pcp, Unknown PCP - General 06/17/24 documented as of this encounter Additional Source Comments The information contained in this document represents components of the legal health record. It is not the complete legal health record.[facility]
--- OUTSIDE RECORDS SUMMARY | 2025-03-01 18:49 | XMS_ITS | Patient Health Record ---
Author Organization [employer] [facility] A Address [address] [place], [place] [address] Care Team Providers Care Senior Benefits Specialist Name Role Phone Raleigh Morillo Unavailable [phone] Reason For Referral No Information Medications [...] Problem Pain of left knee joint (finding) (31800565170843 7) Pain in left knee (M25.562) Active confirmed Problem Sprain of lateral collateral ligament of knee (71994319) Sprain of lateral collateral ligament of left knee, initial encounter (S83.422A) Active confirmed Plan Of Treatment Pending Test Test Name Order Date X ray : Knee, min 3 views, left 04/08/20 19 Insurance Providers Payer Name Payer Address Payer Phone Subscriber Number Group Number Insured Name Patient Relationship to Insured Coverage Start Date Coverage End Date R G - [address] [address] [place] [id number] [phone] HarshadLicha Self - patient is the insured Medical (General) History Medical History History ICD Code Thyroidism hypertension High Cholesterol Surgical History Surgery Date(Month/Year) tubal ligation wisdom teeth extraction Hospitalization History Reason Date(Month/Year) see above surgery
--- OUTSIDE RECORDS SUMMARY | 2025-03-01 18:49 | XMS_ITS | Clinical Summary ---
Author Organization [employer] [facility] Address [address] [address] Phone Care Team Providers Care Artist Representative Name Role Phone Pcp, Unknown Primary Care [...] EST): Well controlled by recent TSH from [facility] Essential hypertension 04/23/2020 Assessment & Plan (06/17/2023 [...] Type Department Care Team Description 12/12/2024 Refill [facility] [place] [facility] [address] [facility] [facility] [address] [place] [address] Kelly Narayan MD, MPH Medication Refill from [...] high school, GED, job training, learning the Burkinan language, technical skills, or developing parenting skills)? [...] EDT) TSH 1.27 0.27 - 4.20 uIU/mL [facility] Blood 09/10/2023 8:02 AM EDT 09/10/2023 8:15 AM EDT us Kelly Narayan MD, MPH LAB BLOOD ORDERABLES Final Result Performing Organization Address City/State/[facility] Co de Phone Number [facility] [address] [place] [address] * (ABNORMAL) Lipid panel (06/18/2023 8:04 AM EST) HDL 77 mg/dL [facility] Comment: Interpretation <40 mg/dL: Low HDL cholesterol (major risk factor for CHD) Greater than or equal to 60 mg/dL: High HDL cholesterol ( negative risk factor for CHD) HDL - cholesterol is affected by a number of factors, e.g. smoking, excerise, hormones, sex and age. CHOLESTEROL 227 0 - 240 mg/dL [facility] TRIGLYCERIDES 171(H) 30 - 160 mg/dL [facility] LDL 116 50 - 129 mg/dL [facility] Comment: LDL levels in terms of risk for coronary heart disease: <100 mg/dL: Optimal 100-129 mg/dL: Near or above optimal 130-159 mg/dL: Borderline high 160-189 mg/dL: High >190 mg/dL: Very High CARDIAC RISK RATIO 2.9(L) 3.3 - 4.4 C [facility] Blood 06/18/2023 8:04 AM EST 06/18/2023 8:10 AM EST Kelly Narayan MD, MPH LAB BLOOD ORDERABLES Final Result Performing Organization Address [facility] Co de Phone Number [address] [address] * HM MAMMOGRAPHY FOR RESULT ENTRY ONLY (01/23/2023) Kelly Narayan MD, MPH HEALTH MAINTENANCE F inal Result * Hepatitis C antibody, qualitative (01/22/2021 3:06 PM EDT) HCV NON-REACTIV E NON-REACTI VE [facility] Blood 01/22/2021 3:06 PM EDT 01/22/2021 3:20 PM EDT Kelly Narayan MD, MPH LAB BLOOD ORDERABLES Final Result Performing Organization Address [facility] Co de Phone Number [address] [address] * Pap Smear (04/30/2020 12:00 AM EST) 04/30/2020 05/01/2020 8:2 0 AM EST Narrative SEE NARRATIVE - 05/03/2020 1:35 PM EST [address] [address] Director Of Labor Relations: Selam Yung MD ASSISTANT ADMINISTRATOR Cytology Report FINAL DIAGNOSIS A. PAP SMEAR [...] 52, 56, 58, 59, 66, 68) by [employer] HR-HPV analysis. Clinical correlation is advised. This HPV test was performed at [facility], [address] [place] [address]. This test has been FDA approved for SurePath cervical cytology specimens. The accuracy and precision of this test for all other specimen sources has been verified in the Cytopathology Laboratory of the [facility] and has not been cleared or approved by the U.S. Food and Drug Administration. Clinical correlation is advised. CLINICAL HISTORY Date of Last Menstrual Period: Not Provided Menstrual History: Alpa-Menopausal Bleeding, Post Coital Other Clinical Conditions: Screening Pap ASSISTANT ADMINISTRATOR exam with abnormal findings: CERVICAL VS PROLAPSING ENDOMETRIAL POLYP PRESENT SPECIMEN SOURCE A: PAP SMEAR (SUREPATH) CE Patient Name: LISANDRA RO : 1965 (Age: 54) Sex: F Institution: [facility] Location: [facility] Date of Collection: 04/30/2020 Date of Reported: [...] Insurance BLUE CROSS OUT OF [place] [address] [place] [address] CROSS OUT OF [facility] PPO BLUE CROSS OUT OF STATE PPO BLUE CROSS OUT OF [facility] PPO BLUE CROSS OUT OF STATE PPO BLUE CROSS OUT OF STATE PPO Member Subscriber Plan / Payer (Ef fective 2021-Present) Name:Lisandra Hyatt Relation to Subscriber:Spouse Name:JEFF HYATT Date of :1900 (Home) Address: [address] [place] [address] Payer ID:[id number] (NAIC) Type:PPO Address: [address] [place], [place] [address] OUT [facility] PPO Member Subscriber Plan / Payer (Ef fective 2021-Present) Name:Lisandra Hyatt Relation to Subscriber:Spouse Name:JEFF HYATT Date of :1900 (Home) Address: [address] [place] [place], [place] Payer ID:[id number] (NAIC) Type:PPO Address: [address] [place], [place] BLUE CROSS OUT OF STATE PPO BLUE CROSS OUT OF STATE PPO Care Teams Artist Representative Relationship Specialty Start Date End Date Pcp, Unknown PCP - General 06/17/24 Additional Source Comments The information contained in this document represents components of the legal health record. It is not the complete legal health record.[facility]
[2025-03-01 20:03] LABS: Free T4 (Free Thyroxine) 1.09 ng/dL (0.71-1.85)
== END 2025-03-01 13:20 | disposition home or self-care (01) ==
LOC: HO.LAB 13:19
PROVIDERS: Absent Provider Internal Medicine Hypertension Specialist; PCP Nurse Practitioner Family; Visit Provider Nurse Practitioner Family
DX: R79.89 Other specified abnormal findings of blood chemistry (principal); E03.9 Hypothyroidism, unspecified; N28.1 Cyst of kidney, acquired; R31.9 Hematuria, unspecified
CPT/HCPCS: 36415; 80076; 81001; 84439; 84443; 88112